=== PATIENT | male | born 1980 | race Caucasian/White ===

== ENCOUNTER 2019-09-07 11:38 | Emergency (ER) | payer OTHER, SELFPAY ==
[2019-09-07 11:48] VITALS: BP 155/83; PULSE 78; RESP 18; TEMP 36.7; O2SAT 98
--- NOTE | 2019-09-07 12:04 | ED.UPPEXIN ---
HPI - Extremity Injury (Upper) General Chief Complaint: Extremity Injury, Upper Stated Complaint: SHOULDER PAIN Time Seen by Provider: 09/07/19 11:57 Source: patient and RN notes reviewed Mode of arrival: ambulatory Limitations: no limitations History of Present Illness HPI narrative: Patient presents today complaining of left shoulder pain. Reports he has had intermittent left shoulder pain over the past 4 months after carrying a heavy sack of feed. Significantly worsened when he woke up this morning with severe pain. Reports intermittent tingling to the left fourth and fifth fingers since yesterday. Patient states that in April, the pain started in his neck and had spread down to his shoulder. Rates his pain 09/01. He has been using ibuprofen, Biofreeze, TENS unit, and going to the chiropractor over the last 6 weeks. All without relief. History of lupus for which she takes Plaquenil. MD complaint: injury to: shoulder Related Data Home Medications Medication Instructions Recorded Confirmed hydroxychloroquine 200 mg PO BID 09/07/19 09/07/19 Allergies Allergy/AdvReac Type Severity Reaction Status Date / Time No Known Allergies Allergy Unverified 09/07/19 11:47 Review of Systems Review of Systems: Narrative: CONSTITUTIONAL: Denies body aches, fever, chills, or sweats. EYES: Denies visual changes, redness, or discharge. ENT: Denies rhinorrhea, congestion, sore throat, or otalgia. CARDIOVASCULAR: Denies chest pain, palpitations, or edema. RESPIRATORY: Denies cough or dyspnea. GASTROINTESTINAL: Denies abdominal pain, nausea, vomiting, or diarrhea. GENITOURINARY: Denies dysuria or hematuria. SKIN: Denies rash, itching, or wounds. MUSCULOSKELETAL: Denies back pain, or myalgia. + Left shoulder pain NEUROLOGIC: Denies headache, numbness, tingling, or weakness. PSYCH: Denies depression or anxiety. [facility] Past Medical History Medical History (Updated 09/07/19 @ 12:11 by Tanisha Zamora, [facility], ) Fracture of thumb, right, closed HTN (hypertension) Lupus Migraine Wrist fracture, left Surgical History Surgical History (Updated 01/19/19 @ 22:44 by Gina Rodriguez) [place] teeth removed Social History Social History (Updated 01/19/19 @ 22:44 by Gina Rodriguez) Smoking packs per day: 1 Smoking cigarettes per day: 20.0 Smoking status: Current every day smoker Tobacco type: cigarettes Alcohol intake: never Comments At time of signature, I have reviewed and agree with nursing past medical, surgical, social and family history unless otherwise noted. Please see nursing chart for further information. There is no relevant family history pertinent to the presenting complaint Exam Narrative: Exam Narrative: GENERAL: Well-appearing, well-nourished, and in no acute distress. HEAD: Normocephalic, atraumatic. EYES: EOMI. No redness or drainage. Conjunctivae normal. ENT: Mucous membranes pink and moist. NECK: Normal AROM. Supple. No lymphadenopathy. Neck is nontender. CHEST: No respiratory distress. MUSCULOSKELETAL: No bony tenderness of the spine. Left trapezius tenderness that extends down the scapular border. Elbow is non tender. No swelling of the arm noted. Full AROM without increased pain. Full sensation intact. Capillary refill normal. Radial pulse normal. Handgrips equal and strong. EXTREMITIES: Normal range of motion. No edema. SKIN: Warm, dry, no rash. Capillary refill normal. Normal skin turgor. NEURO: No focal deficits. Alert and oriented x3. Gait steady. PSYCH: Normal affect. No signs of depression or anxiety. Course Vital Signs Vital signs: Vital Signs Temperature 98.0 F 09/07/19 11:48 Pulse Rate 78 09/07/19 11:48 Respiratory Rate 18 09/07/19 11:48 Blood Pressure 155/83 H 09/07/19 11:48 Pulse Oximetry 98 09/07/19 11:48 Temperature 98.0 F 09/07/19 11:48 Pulse Rate 78 09/07/19 11:48 Respiratory Rate 18 09/07/19 11:48 Blood Pressure 155/83 H 07
== END 2019-09-07 12:24 | disposition home or self-care (01) ==
PROVIDERS: Emergency Provider Nurse Practitioner; PCP Family Medicine
DX: S46.812A Strain of other muscles, fascia and tendons at shoulder and upper arm level, left arm, initial encounter (principal); X50.0XXA Overexertion from strenuous movement or load, initial encounter; I10 Essential (primary) hypertension; F17.210 Nicotine dependence, cigarettes, uncomplicated; M32.9 Systemic lupus erythematosus, unspecified
CPT/HCPCS: 99213; G0463

== ENCOUNTER 2019-09-11 15:02 | Emergency (ER) | payer OTHER, SELFPAY ==
--- NOTE | ~2019-09-11 | XR_ITS ---
EXAMINATION: XR shoulder LT min 2V DATE: 09/11/2019 16:05 INDICATION: Left shoulder pain. TECHNIQUE: 4 views of left shoulder were obtained. COMPARISON: None. FINDINGS: Bone alignment is normal. No fracture. Joint spaces are normal. IMPRESSION: 1. Normal left shoulder. Reviewed, dictated and finalized at location A. IMPRESSION: 1. Normal left shoulder.
--- NOTE | ~2019-09-11 | CT_ITS ---
EXAMINATION: CT cervical spine wo con DATE: 09/11/2019 15:59 INDICATION: Neck pain. Left shoulder pain. TECHNIQUE: Computed tomography (CT) of the cervical spine was performed without intravenous contrast. Automated exposure control and iterative reconstruction technique were employed. The dose-length pro duct was 455.01 mGy-cm. COMPARISON: None FINDINGS: There is kyphosis of cervical spine. Vertebral body heights and intervertebral disc heights are normal. The following disc levels are specifically discussed: C2-C3: There is no uncovertebral joint osteoarthritis. There is mild right facet joint osteoarthritis . There is no neural foraminal stenosis. There is no central canal stenosis. C3-C4: There is no uncovertebral joint osteoarthritis. There is mild right facet joint osteoarthritis . There is no neural foraminal stenosis. There is no central canal stenosis. C4-C5: There is no uncovertebral joint osteoarthritis. There is no facet joint osteoarthritis. There is no neural foraminal stenosis. There is no central canal stenosis. C5-C6: There is mild right uncovertebral joint osteoarthritis. There is no facet joint osteoarthritis . There is no neural foraminal stenosis. There is no central canal stenosis. C6-C7: There is no uncovertebral joint osteoarthritis. There is no facet joint osteoarthritis. There is no neural foraminal stenosis. There is no central canal stenosis. C7-T1: There is no uncovertebral joint osteoarthritis. There is mild bilateral facet joint osteoarthr itis. There is no neural foraminal stenosis. There is no central canal stenosis. IMPRESSION: 1. Mild cervical spondylosis. Reviewed, dictated and finalized at location A.
[2019-09-11 15:09] VITALS: BP 172/106; PULSE 106; RESP 20; TEMP 36.7; O2SAT 98
--- NOTE | 2019-09-11 15:47 | ED.UPPEXIN ---
HPI - Extremity Injury (Upper) General Chief Complaint: Extremity Injury, Upper Stated Complaint: L SHOULDER/NECK PAIN Time Seen by Provider: 09/11/19 15:32 Source: patient Mode of arrival: ambulatory Limitations: no limitations History of Present Illness HPI narrative: This is a 39-year-old male that presents the emergency department for left shoulder pain times 5 days. Reports an injury in April of this year. No new injuries or trauma. Reports for the last 5 days he has had left sided neck pain radiating into the left shoulder. Reports weakness in the arm. Also reports tingling in his fingers. Denies erythema, edema, numbness or decreased range of motion. Related Data Home Medications Medication Instructions Recorded Confirmed hydroxychloroquine 200 mg PO BID 09/07/19 09/07/19 Allergies Allergy/AdvReac Type Severity Reaction Status Date / Time No Known Allergies Allergy Verified 09/11/19 15:34 Review of Systems Review of Systems: Narrative: CONSTITUTIONAL: Denies fever SKIN: Denies rash MUSCULOSKELETAL: Reports joint pain, and myalgia. NEUROLOGIC: Reports weakness. Denies numbness All systems reviewed & are unremarkable except as noted in HPI and below PMFSH Past Medical History Medical History (Updated 09/11/19 @ 16:50 by Germaine Madsen PA-C) Fracture of thumb, right, closed HTN (hypertension) Lupus Migraine Wrist fracture, left Surgical History Surgical History (Updated 01/19/19 @ 22:44 by Gina Rodriguez) [place] teeth removed Social History Social History (Updated 01/19/19 @ 22:44 by Gina Rodriguez) Smoking packs per day: 1 Smoking cigarettes per day: 20.0 Smoking status: Current every day smoker Tobacco type: cigarettes Alcohol intake: never Exam Narrative: Exam Narrative: GENERAL: Well-appearing, well-nourished, and in no acute distress. HEAD: Normocephalic, atraumatic. EYES: EOMI. NECK: Supple. No adenopathy or masses. No midline spinal tenderness CHEST: Clear to auscultation. No respiratory distress. No wheezes rales or rhonchi HEART: Regular rate and rhythm. No murmur heard. Normal peripheral pulses. EXTREMITIES: Normal range of motion. No edema. Strength equal in bilateral upper extremities (5/5) SKIN: Warm, dry, no rash. NEURO: No focal deficits. Alert and oriented x3. PSYCH: Normal mood and affect Course Vital Signs Vital signs: Vital Signs Temperature 98.0 F 09/11/19 15:09 Pulse Rate 106 H 09/11/19 15:09 Respiratory Rate 09/11/19 15:09 Blood Pressure 172/106 H 09/11/19 15:09 Pulse Oximetry 98 09/11/19 15:09 Temperature 98.0 F 09/11/19 15:09 Pulse Rate 106 H 09/11/19 15:09 Respiratory Rate 09/11/19 15:09 Blood Pressure 172/106 H 09/11/19 15:09 Pulse Oximetry 98 09/11/19 15:09 MDM - Extremity Injury (Upper) MDM Narrative Medical decision making narrative: Patient presents emergency department for left shoulder/neck pain x5 days. No known injury or trauma. Patient is neurologically intact. CT of the cervical spine shows mild cervical spondylosis. Left shoulder x-rays without acute findings. Patient was updated on case findings. He was instructed on care of muscle strain. He is to follow-up with primary care doctor. He was given warnings to return to the ER Imaging Data Radiologist's impression: ITS Impressions Cervical Spine CT 09/11/19 16:00 IMPRESSION: 1. Mild cervical spondylosis. Shoulder X-Ray 09/11/19 16:11 IMPRESSION: 1. Normal left shoulder. Critical Care Time Critical Care Time Critical Care Time: No Discharge Plan Discharge Clinical Impression: Acute pain of left shoulder, Neck pain on left side Patient Disposition: Home, Self-Care Condition: Stable Instructions: Neck Pain (ED) Additional Instructions: Return to the ER if you experience fever, weakness, numbness, or any other symptoms that are concerning to you Rest, use ice/heat, take anti-inflamm
[2019-09-11] MEDS: ACETAMINOPHEN 500 MG TABLET 1000 MG PO (16:15)
== END 2019-09-11 17:29 | disposition home or self-care (01) ==
PROVIDERS: Emergency Provider Emergency Medicine; PCP Family Medicine
DX: M25.512 Pain in left shoulder (principal); M54.2 Cervicalgia; I10 Essential (primary) hypertension; F17.210 Nicotine dependence, cigarettes, uncomplicated; M47.812 Spondylosis without myelopathy or radiculopathy, cervical region
CPT/HCPCS: 72125; 73030; 99284; A9270

== ENCOUNTER 2021-02-10 19:02 | Emergency (ER) | payer OTHER, SELFPAY ==
--- NOTE | ~2021-02-10 | XR_ITS ---
XR chest 2V 02/10/2021 19:28 Indication: Chest pain Procedure: 2 view chest Comparison: 10/14/2017 Findings: There are lingular infiltrates. There are calcified granuloma in the right apex. No edema, pleural effusion or pneumothorax. No acute osseous abnormality. Impression: 1: Lingular infiltrates may represent atelectasis or pneumonia. Recommend follow-up chest x-ray and 4 -6 weeks following appropriate therapy. If there is opacification is persistent, further evaluation w ith CT recommended. Reviewed, dictated and finalized at location A. MINER Impression: 1: Lingular infiltrates may represent atelectasis or pneumonia. Recommend follo w-up chest x-ray and 4-6 weeks following appropriate therapy. If there is opaci fication is persistent, further evaluation with CT recommended.
[2021-02-10 19:09] VITALS: BP 209/120; PULSE 84; RESP 18; TEMP 36.7; O2SAT 98
--- NOTE | 2021-02-10 19:15 | ECG_ITS ---
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
[2021-02-10 19:28] LABS: Basophils Absolute Auto 0.1 K/mm3 (0.0-0.1); Basophils Percent Auto 0.8 % (0.2-1.2); Eosinophils Absolute Auto 0.5 K/mm3 (0-0.3); Eosinophils Percent Auto 3.1 % (0-4.4); Hematocrit 56.3 % (42.0-52.0); Hemoglobin 18.9 g/dL (14.0-18.0); Immature Granulocyte Absolute 0.07 K/mm3 (0.00-0.031); Immature Granulocyte Percent A 0.5 % (0-0.5); Lymphocytes Absolute Auto 3.61 K/mm3 (0.9-3.2); Lymphocytes Percent Auto 24.7 % (18.3-44.2); Mean Corpuscular HGB Conc 33.6 g/dl (32-36); Mean Corpuscular Hemoglobin 29.8 pg (26-34); Mean Corpuscular Volume 88.8 fl (80-100); Mean Platelet Volume 9.7 fl (7.4-10.4); Monocytes Absolute Auto 0.9 K/mm3 (0.1-0.6); Monocytes Percent Auto 6.4 % (2.6-8.5); Neutrophils Absolute Auto 9.4 K/mm3 (1.3-6.7); Neutrophils Percent Auto 64.5 % (45.5-73.1); Platelet Count Result 279 k/mm3 (150-375); Red Blood Count 6.34 M/mm3 (4.6-6.20); Red Cell Distribution Width 14.1 % (11.5-14.5); White Blood Count 14.6 K/mm3 (4.5-10.0)
[2021-02-10 19:48] LABS: INR 0.9; Partial Thromboplastin Time 26.3 SECONDS (22.3-36.8); Prothrombin Time 11.9 Seconds (11.1-14.7)
[2021-02-10 19:50] LABS: Troponin I < 0.012 ng/mL (0.000-0.034)
[2021-02-10 19:52] LABS: Alanine Aminotransferase 75 U/L (4-50); Albumin Level 4.8 g/dL (3.5-5.1); Alkaline Phosphatase 114 U/L (38-126); Anion Gap 9 mmol/L (8-16); Aspartate Amino Transferase 46 U/L (17-59); Bilirubin,Total 0.5 mg/dL (0.2-1.3); Blood Urea Nitrogen 11 mg/dL (9-20); Calcium 9.5 mg/dL (8.4-10.2); Carbon Dioxide 26 mmol/L (22-30); Chloride 102 mmol/L (98-107); Estimated CRCL calculation 129 ml/min; Estimated Glomerular Filt Rate > 60; Glucose 92 mg/dL (65-110); Lipase 115 U/L (23-300); Sodium 137 mmol/L (137-145)
[2021-02-10 20:08] VITALS: BP 234/107; PULSE 91; RESP 20; O2SAT 98
[2021-02-10 21:04] VITALS: BP 181/115; PULSE 88; RESP 16; O2SAT 98
[2021-02-10] MEDS: hydroCHLOROthiazide 25 MG TABLET PO (22:00)
[2021-02-10] MEDS: lisinopriL 20 MG TABLET PO (22:00)
--- NOTE | 2021-02-10 22:28 | ED.GENADULT ---
HPI - General Adult General Chief complaint: Chest Pain Stated complaint: chest pain Time Seen by Provider: 02/10/21 21:40 Source: patient and RN notes reviewed History of Present Illness HPI narrative: Patient is a 40 y/o male complaining of left sided chest pain starting about 11:00 AM this morning when he woke up. He describes his pain as aching and rates it as 8/10. There is no pain radiation, no alleviating or exacerbating factor. He states that he has history of hypertension, but has not been taking meds for several months. Related Data Home Medications Medication Instructions Recorded Confirmed hydroxychloroquine 200 mg PO BID 09/07/19 10/20/19 Allergies Allergy/AdvReac Type Severity Reaction Status Date / Time No Known Allergies Allergy Verified 02/10/21 21:05 Review of Systems Constitutional: Constitutional: Denies chills, Denies fever(s), Denies headache(s) and Denies weakness Eyes: Eyes: Denies blurry vision ENT: Denies headache(s) and Denies neck pain Cardiovascular: Cardiovascular: Reports chest pain and Denies dyspnea Respiratory: Respiratory: Denies cough and Denies dyspnea Gastrointestinal: Gastrointestinal: Denies abdominal pain, Denies diarrhea, Denies nausea and Denies vomiting Genitourinary: Genitourinary: Denies hematuria and Denies dysuria Musculoskeletal: Musculoskeletal: Denies back pain and Denies neck pain Neurologic: Denies headache(s) and Denies weakness PMFSH Past Medical History Medical History (Updated 02/10/21 @ 23:36 by Tess Edwards MD) Fracture of thumb, right, closed HTN (hypertension) Lupus Migraine Vision abnormalities Wrist fracture, left Surgical History Surgical History [place] teeth removed Family History Family History (Updated 10/20/19 @ 12:04 by Paola Gagnon RT(R)) Mother Family history of rheumatoid arthritis Other Hypertension Social History Social History (Updated 10/20/19 @ 12:04 by Paola Gagnon RT(R)) Smoking packs per day: 1 Smoking cigarettes per day: 20.0 Smoking status: Current every day smoker Tobacco type: cigarettes Alcohol intake: current Alcohol use details: 1-2 per week Exam Const: General: no acute distress and well developed Orientation/consciousness: oriented to person, oriented to place, oriented to time and patient oriented x3 HENMT: Head: normocephalic Ears: external ears normal General nose exam: Normal external nose present Eyes: General: appearance normal, both eyes and all related structures Conjunctivae: conjunctivae normal Neck: Neck: normal visual inspection and full ROM Chest: Chest palpation & inspection: normal inspection of the chest and no tenderness Resp: Effort & Inspection: normal respiratory effort Auscultation: clear to auscultation bilaterally Cardio: Rate: regular rate Rhythm: regular rhythm GI: GI Palp: No abdominal tenderness and Yes Soft to palpation Skin: General skin exam: normal color and turgor normal Neuro: General: oriented to person, oriented to place, oriented to time and patient oriented x3 Cognition (Neuro): normal cognition Extrem: General: normal to inspection, full ROM and no pedal edema Psych: Appearance: grossly normal Mental Status: mental status grossly normal Affect: normal affect Course Vital Signs Vital signs: Vital Signs Temperature 36.7 C 02/10/21 19:09 Pulse Rate 84 02/10/21 19:09 Respiratory Rate 18 02/10/21 19:09 Blood Pressure 209/120 H 02/10/21 19:09 Pulse Oximetry 98 02/10/21 19:09 Temperature 36.7 C 02/10/21 19:09 Pulse Rate 76 02/11/21 00:24 Respiratory Rate 18 02/11/21 00:24 Blood Pressure 160/93 H 02/11/21 00:24 Pulse Oximetry 97 02/11/21 00:24 Medical Decision Making Vital Signs Vital Signs: Vital Signs Temperature 36.7 C 02/10/21 19:09 Pulse Rate 84 02/10/21 19:09 Respiratory Rate 18 12
[2021-02-10 22:44] LABS: D Dimer 0.27 ug/mL (<0.48)
[2021-02-10 22:47] VITALS: BP 172/98; PULSE 76; RESP 14; O2SAT 98
[2021-02-10 22:54] LABS: Troponin I < 0.012 ng/mL (0.000-0.034)
[2021-02-10 23:24] VITALS: BP 149/97; PULSE 93; RESP 16; O2SAT 96
[2021-02-11 00:24] VITALS: BP 160/93; PULSE 76; RESP 18; O2SAT 97
== END 2021-02-11 00:30 | disposition home or self-care (01) ==
PROVIDERS: Emergency Provider Emergency Medicine
DX: J18.9 Pneumonia, unspecified organism (principal); R07.9 Chest pain, unspecified; I10 Essential (primary) hypertension; F17.210 Nicotine dependence, cigarettes, uncomplicated
CPT/HCPCS: 36415; 71046; 80053; 83690; 84484; 85025; 85380; 85610; 85730; 93005; 99284; A9270

== ENCOUNTER → 2021-10-29 01:34 | Outpatient (CLI) | payer OTHER, SELFPAY ==
[2021-10-30 01:20] LABS: SARS-CoV-2 RNA PCR Positive
== END ==
PROVIDERS: PCP Emergency Medicine; Visit Provider Emergency Medicine
DX: U07.1 COVID-19 (principal)
CPT/HCPCS: C9803; U0003; U0005

== ENCOUNTER 2021-11-12 16:05 | Emergency (ER) | payer OTHER, SELFPAY ==
[2021-11-12] VITALS (8 sets, daily range): BP systolic 121–141; BP diastolic 64–83; PULSE 64–80; RESP 18–20; TEMP 36.9; O2SAT 97–99
--- NOTE | ~2021-11-12 | XR_ITS ---
EXAMINATION: XR chest 2V 11/12/2021 16:48 INDICATION: Chest pain. PROCEDURE: 2 view chest COMPARISON: 02/10/2021 FINDINGS: The lungs are clear. There is calcified granuloma right upper thorax. The cardiomediastinal silhouette is within normal limits. There are no pleural effusions. There is no pneumothorax suspe cted. IMPRESSION: 1: NO ACUTE CARDIOPULMONARY DISEASE. Reviewed, dictated and finalized at location A.
--- NOTE | 2021-11-12 16:13 | ECG_ITS ---
Measurements Intervals Foley Rate: 78 P: 36 FL: 132 QRS: 25 QRSD: 101 T: 43 QT: 377 QTc: 430 Interpretive Statements SINUS RHYTHM DELAYED PRECORDIAL R/S TRANSITION NONSPECIFIC T-WAVE ABNORMALITY- INFERIOR LEADS BASELINE WANDER- II, III, AVF BORDERLINE ECG COMPARED TO ECG 02/10/2021 19:15:02 T-WAVE ABNORMALITY NOW PRESENT Electronically Signed On 11-12-2021 16:47:24 CDT by Avery Cardenas D.O.
[2021-11-12 17:23] LABS: Basophils Absolute Auto 0.1 K/mm3 (0.0-0.1); Basophils Percent Auto 0.6 % (0.2-1.2); Eosinophils Absolute Auto 0.3 K/mm3 (0-0.3); Eosinophils Percent Auto 3.5 % (0-4.4); Hematocrit 48.4 % (42.0-52.0); Hemoglobin 15.6 g/dL (14.0-18.0); Immature Granulocyte Absolute 0.04 K/mm3 (0.00-0.031); Immature Granulocyte Percent A 0.4 % (0-0.5); Lymphocytes Absolute Auto 2.59 K/mm3 (0.9-3.2); Lymphocytes Percent Auto 27.9 % (18.3-44.2); Mean Corpuscular HGB Conc 32.2 g/dl (32-36); Mean Corpuscular Hemoglobin 27.9 pg (26-34); Mean Corpuscular Volume 86.4 fl (80-100); Mean Platelet Volume 9.9 fl (7.4-10.4); Monocytes Absolute Auto 0.7 K/mm3 (0.1-0.6); Monocytes Percent Auto 7.6 % (2.6-8.5); Neutrophils Absolute Auto 5.6 K/mm3 (1.3-6.7); Platelet Count Result 290 k/mm3 (150-375); Red Cell Distribution Width 14.4 % (11.5-14.5); White Blood Count 9.3 K/mm3 (4.5-10.0)
[2021-11-12 17:33] LABS: INR 1.1; Prothrombin Time 13.6 Seconds (11.1-14.7)
[2021-11-12 17:34] LABS: Partial Thromboplastin Time 27.2 SECONDS (22.3-36.8)
[2021-11-12 17:35] LABS: Alanine Aminotransferase 41 U/L (6-50); Albumin Level 4.5 g/dL (3.5-5.1); Alkaline Phosphatase 91 U/L (38-126); Anion Gap 9 mmol/L (8-16); Aspartate Amino Transferase 27 U/L (17-59); Bilirubin,Total 0.5 mg/dL (0.2-1.3); Blood Urea Nitrogen 13 mg/dL (9-20); Calcium 9.3 mg/dL (8.4-10.2); Carbon Dioxide 25 mmol/L (22-30); Chloride 105 mmol/L (98-107); Estimated CRCL calculation 104 ml/min; Estimated Glomerular Filt Rate > 60; Glucose 119 mg/dL (65-110); Lipase 108 U/L (23-300); Potassium 3.9 mmol/L (3.4-5.0); Sodium 139 mmol/L (137-145)
[2021-11-12 17:45] LABS: Troponin I < 0.012 ng/mL (0.000-0.034)
--- NOTE | 2021-11-12 17:51 | ED.CHESTPAIN ---
HPI - Chest Pain General Chief Complaint: Chest Pain Stated Complaint: CHEST PAIN,LIGHTHEADED. COVID+ 10/29/21 Time Seen by Provider: 11/12/21 17:42 Source: patient Mode of arrival: ambulatory Limitations: no limitations History of Present Illness HPI narrative: This is a 41 year old male that presents to the ER for chest pain. Ongoing over the last 5 days. Reports he has recently recovered from COVID. Reports the pain is a pressure. It has been constant all day. It is intermittently sharp. Reports some associated lightheadedness. 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 Reports he has had a negative stress test this year. Denies shortness of breath or lower extremity edema. Related Data Home Medications Medication Instructions Recorded Confirmed carvedilol 12.5 mg tablet 12.5 mg PO BID 04/16/21 10/23/21 Allergies Allergy/AdvReac Type Severity Reaction Status Date / Time No Known Allergies Allergy Verified 10/23/21 14:20 Review of Systems Review of Systems: CONSTITUTIONAL: Denies fever CARDIOVASCULAR: Reports chest pain. Denies edema. RESPIRATORY: Denies cough or dyspnea. All systems reviewed & are unremarkable except as noted in HPI and below PMFSH Past Medical History Medical History (Updated 11/12/21 @ 21:32 by Germaine Madsen PA-C) Fracture of thumb, right, closed HTN (hypertension) Lupus Migraine Vision abnormalities Wrist fracture, left Surgical History Surgical History [place] teeth removed Family History Family History (Updated 10/20/19 @ 12:04 by Paola Gagnon, RT(R)) Mother Family history of rheumatoid arthritis Other Hypertension Social History Social History (Updated 11/12/21 @ 17:55 by Germaine Madsen PA-C) Smoking status: Current every day smoker Tobacco type: cigarettes Alcohol intake: current Alcohol use details: 1-2 per week Substance use: never Exam Narrative: GENERAL: Well-appearing, well-nourished, and in no acute distress. HEAD: Normocephalic, atraumatic. EYES: EOMI. CHEST: Clear to auscultation. No respiratory distress. No wheezes rales or rhonchi HEART: Regular rate and rhythm. No murmur heard. Normal peripheral pulses. ABDOMEN: Soft, nontender, nondistended, normal active bowel sounds. EXTREMITIES: Normal range of motion. No edema. SKIN: Warm, dry, no rash. NEURO: No focal deficits. Alert and oriented x3. PSYCH: Normal mood and affect Course Consultations Consultation #1: Spoke with his cardiology [facility] MANA[facility] on-call about work-up. Patient is to have close follow-up in clinic. Date: 11/12/21 Time: 21:29 Vital Signs Vital signs: Vital Signs Temperature 98.5 F 11/12/21 16:12 Pulse Rate 80 11/12/21 16:12 Respiratory Rate 20 11/12/21 16:12 Blood Pressure 136/72 11/12/21 16:12 Pulse Oximetry 99 11/12/21 16:12 Oxygen Delivery Room Air 11/12/21 16:12 Temperature 98.5 F 11/12/21 16:12 Pulse Rate 66 11/12/21 20:38 Respiratory Rate 18 11/12/21 20:38 Blood Pressure 127/68 11/12/21 20:38 Pulse Oximetry 97 11/12/21 20:38 Oxygen Delivery Room Air 11/12/21 16:12 MDM - Chest Pain MDM Narrative Medical decision making narrative: Patient presents to the emergency department for intermittent chest pains noted over the last 5 days. Patient is afebrile and nontoxic-appearing. His vitals are stable. CBC and metabolic panel without concerning findings. Lipase is normal. No acute ST changes on EKG. Baseline and 3-hour troponin are negative. His D-dimer is negative. Patient does report he has had a negative stress test this year. Patient was updated on case findings. His heart score is a 3. Spoke with his cardiology [facility] MANAGER on-call about work-up. Patient is to have close follow-up in clinic. Patient is stable and felt appropriate for further outpatient evaluation. He was given warnings to return to the ER Lab Data Attestation: I reviewed the kathryn
[2021-11-12] MEDS: PANTOPRAZOLE SODIUM IV 40 MG VIAL IV PUSH (18:02)
[2021-11-12] MEDS: SODIUM CHLORIDE 0.9% IV 500 ML 999 ML IV CONT (18:02)
[2021-11-12 18:29] LABS: D Dimer < 0.27 ug/mL (<0.48)
[2021-11-12] MEDS: KETOROLAC 15 MG/ML VIAL (*BKC) IV PUSH (18:48)
[2021-11-12 19:59] LABS: Troponin I < 0.012 ng/mL (0.000-0.034)
== END 2021-11-12 21:39 | disposition home or self-care (01) ==
PROVIDERS: Emergency Medicine; Physician Assistant; Emergency Provider Emergency Medicine; PCP Emergency Medicine
DX: R07.9 Chest pain, unspecified (principal); F17.210 Nicotine dependence, cigarettes, uncomplicated; I10 Essential (primary) hypertension; Z86.16 Personal history of COVID-19
CPT/HCPCS: 36415; 71046; 80053; 83690; 84484; 85025; 85380; 85610; 85730; 93005; 96361; 96365; 96375; 99284; C9113; J0131; J1885; J7040

== ENCOUNTER 2021-12-31 17:46 | Emergency (ER) | payer OTHER, SELFPAY ==
[2021-12-31 17:58] VITALS: BP 134/87; PULSE 72; RESP 16; TEMP 36.3; O2SAT 99
--- NOTE | 2021-12-31 18:26 | ED.DENTAL ---
HPI - Dental/Oral General Chief complaint: Dental/Oral Stated complaint: discoloration of tongue, sore throat Time Seen by Provider: 12/31/21 18:00 Source: patient Mode of arrival: ambulatory Limitations: no limitations History of Present Illness HPI Narrative: Mr. Green is a 41-year-old male patient presenting to the clinic today with complaints of throat swelling, sore throat, and discoloration of his tongue. He reports that he has seen his 2 primary care doctors JOANN and a pulmonary doctor for this concern. He reports that his throat is swelling at times he feels like it itching and that he has something stuck in the throat. 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 He denies any fever chills but states that at times he has some difficulty swallowing due to the swelling and the discomfort as well as a poking sensation in the bottom of his throat. He states that he no one can figure out what is going on. They have taken off lisinopril and losartan due to swelling in the throat Related Data Home Medications Medication Instructions Recorded Confirmed carvedilol 12.5 mg tablet 12.5 mg PO BID 04/16/21 12/19/21 amlodipine 5 mg tablet 5 mg PO DAILY 12/19/21 12/19/21 aspirin 81 mg capsule 81 mg PO DAILY 12/19/21 12/19/21 clindamycin HCl 300 mg capsule mg 12/31/21 clomiphene citrate 50 mg tablet mg 12/31/21 Allergies Allergy/AdvReac Type Severity Reaction Status Date / Time lisinopril AdvReac Intermediate Verified 12/19/21 13:19 losartan AdvReac Intermediate Verified 12/19/21 13:23 Review of Systems Review of Systems: Pertinent positives per HPI. Patient denies any fever, chills, rash, headache, visual changes, dizziness, cough, runny nose, sore throat, shortness of breath, chest pain, palpitations, nausea, vomiting, diarrhea, constipation, abdominal pain, or any urinary issues. [facility] Past Medical History Medical History (Updated 12/31/21 @ 18:28 by Jose Gannon APRN) Fracture of thumb, right, closed HTN (hypertension) Lupus Migraine Vision abnormalities Wrist fracture, left Surgical History Surgical History [place] teeth removed Family History Family History (Updated 10/20/19 @ 12:04 by Paola Gagnon, RT(R)) Mother Family history of rheumatoid arthritis Other Hypertension Social History Social History (Updated 11/12/21 @ 17:55 by Germaine Madsen PA-C) Smoking status: Current every day smoker Tobacco type: cigarettes Alcohol intake: current Alcohol use details: 1-2 per week Substance use: never Comments At the time of my signature, I reviewed and agree with the nursing past medical, surgical, social, and family history. There is no relevant family history pertinent to the patient complaint. Exam Narrative: General: Well-developed, well nourished, in no apparent distress Head: Normocephalic, atraumatic Eyes: Pupils equally round and reactive to light bilaterally, EOM intact, sclera and conjunctive clear, no discharge, lids normal Ears: TMs intact and clear, ear canals clear, no drainage, grossly hearing normal. Nose: Nares patent, no discharge, no inflammation, no sinus tenderness. Mouth: Oropharynx without masses, good dentition, MMM. White patches to the soft palate as well as in the oropharynx and on the tongue. Throat appears to look red and beefy with swelling Neck: Supple, trachea midline, no enlargement of anterior or posterior cervical nodes, no thyroid masses or goiter palpable. Cardio: Regular rate and rhythm, s1 and s2 normal, no murmur appreciated. Resp: Clear to auscultation bilaterally anteriorly and posteriorly, no rhonchi, rales, wheezing or rubs Course Course Emergency Course: Portions of this record may have been created with voice recognition software. Level of Care: Express Care Visit Vital Signs Vital signs: Vital Signs Temperature 36.3
== END 2021-12-31 18:33 | disposition home or self-care (01) ==
PROVIDERS: Emergency Provider Nurse Practitioner Family; PCP Nurse Practitioner Family
DX: B37.0 Candidal stomatitis (principal); F17.210 Nicotine dependence, cigarettes, uncomplicated; I10 Essential (primary) hypertension; Z79.82 Long term (current) use of aspirin; M32.9 Systemic lupus erythematosus, unspecified
CPT/HCPCS: 99213; G0463

== ENCOUNTER 2022-03-12 11:34 | Emergency (ER) | payer OTHER, SELFPAY ==
--- NOTE | ~2022-03-12 | XR_ITS ---
Supine and upright views of the abdomen Clinical history: Flank pain Findings: Bowel gas pattern is nonspecific. No evidence for obstruction or free air. No abnormal mass lesion or calcification is seen. Osseous structures are intact. Impression: No significant abnormality is seen. Reviewed, dictated and finalized at [facility]. [employer] MA[employer]GER Impression: No significant abnormality is seen.
[2022-03-12 11:43] VITALS: BP 145/91; PULSE 77; RESP 16; TEMP 36.8; O2SAT 99
--- NOTE | 2022-03-12 12:20 | ED.BACK ---
HPI - Back Pain/Injury General Chief Complaint: Back Pain/Injury Stated Complaint: FLANK PAIN Time Seen by Provider: 03/12/22 12:20 Source: patient Mode of arrival: ambulatory Limitations: no limitations History of Present Illness HPI Narrative: 41 y/o male presented for c/o right flank pain for 5 days. Reports pain is 90% right sided and 10% left sided and radiates from the back to front. Denies known injury, states he did lift heavy bags last week but states it is unrelated. Rates pain 5-7/10 and is described as sharp. Denies anything making pain worse, states certain positions make the pain better. Denies urinary complaints of any kind, denies constipation, n/v/d/f/c. Denies hx renal stones. Has used Tens unit, seen chiropractor for an adjustment, and stretches. Also taking Tylenol and motrin. Related Data Home Medications Medication Instructions Recorded Confirmed carvedilol 12.5 mg tablet 12.5 mg PO BID 04/16/21 12/19/21 amlodipine 5 mg tablet 5 mg PO DAILY 12/19/21 12/19/21 aspirin 81 mg capsule 81 mg PO DAILY 12/19/21 12/19/21 clindamycin HCl 300 mg capsule mg 12/31/21 clomiphene citrate 50 mg tablet mg 12/31/21 Allergies Allergy/AdvReac Type Severity Reaction Status Date / Time lisinopril AdvReac Intermediate Swelling Verified 03/12/22 12:34 of Lip/Tongue/Throat losartan AdvReac Intermediate Swelling Verified 03/12/22 12:34 Review of Systems Review of Systems: CONSTITUTIONAL: Denies body aches, fever, chills EYES: Denies visual changes CARDIOVASCULAR: Denies chest pain, palpitations, or edema. RESPIRATORY: Denies cough or dyspnea. GASTROINTESTINAL: Denies abdominal pain, nausea, vomiting, or diarrhea. SKIN: Denies rash, itching, or wounds. MUSCULOSKELETAL: reports back pain NEUROLOGIC: Denies headache, numbness, tingling, or weakness. All systems reviewed & are unremarkable except as noted in HPI and below PMFSH Past Medical History Medical History Fracture of thumb, right, closed HTN (hypertension) Lupus Migraine Vision abnormalities Wrist fracture, left Surgical History Surgical History [place] teeth removed Family History Family History Mother Family history of rheumatoid arthritis Other Hypertension Social History Social History Smoking status: Current every day smoker Tobacco type: cigarettes Alcohol intake: current Alcohol use details: 1-2 per week Substance use: never Comments At time of signature, I have reviewed and agree with nursing past medical, surgical, social and family history unless otherwise noted. Please see nursing chart for further information. There is no relevant family history pertinent to the presenting complaint Exam Narrative: GENERAL: Well-appearing, well-nourished, and in no acute distress. HEAD: Normocephalic, atraumatic. EYES: conjunctivae clear NECK: Supple. full ROM CHEST: Speaks in full sentences. No respiratory distress. HEART: Regular rate and rhythm. Normal and equal peripheral pulses. ABD: Mild ttp LLQ and mild pain reported right flank with deep palpation. BS positive, soft, round. MUSC: No Vertebral point tenderness. BLEs with normal strength and sensation, normal range of motion. No open wounds or obvious deformity; pulse palpable and equal bilaterally, skin warm, dry, pink. Capillary refill less than 3 seconds. Gait steady. SKIN: Warm, dry, no rash. NEURO: Alert and oriented x3. Course Course Emergency Course: Patient is aware of diagnosis, understands and agrees to treatment plan. Anticipatory guidance given. Patient agrees to follow-up as directed and is aware of reasons to seek care at the emergency department. Portions of this record may have been created with voice recognition softwa
== END 2022-03-12 13:16 | disposition home or self-care (01) ==
PROVIDERS: Emergency Provider Nurse Practitioner Family; PCP Nurse Practitioner Family
DX: R10.9 Unspecified abdominal pain (principal); I10 Essential (primary) hypertension; F17.210 Nicotine dependence, cigarettes, uncomplicated; M32.9 Systemic lupus erythematosus, unspecified
CPT/HCPCS: 74018; 81003; 99213; G0463

== ENCOUNTER 2022-03-17 17:38 | Emergency (ER) | payer OTHER, SELFPAY ==
[2022-03-17 17:46] VITALS: BP 160/86; PULSE 93; RESP 16; TEMP 36.6; O2SAT 99
--- NOTE | 2022-03-17 18:03 | ED.EXTPRO ---
HPI - Extremity Problem General Chief complaint: Extremity Problem,Nontraumatic Stated complaint: swelling in legs Time Seen by Provider: 03/17/22 18:03 Source: patient, RN notes reviewed and old records reviewed Mode of arrival: ambulatory Limitations: no limitations History of Present Illness HPI Narrative: 41 year old male who presents to express care with complaints of noting some swelling to his lower extremities since last night. Patient has mild pretibial edema noted which is pitting, he denies any increase use of salt, eating of highly salted foods or processed food consumption.Patient states when he was in [facility] route jumper there said he had Lupus and he took medication, but route jumper in [facility] said he doesn't have it. 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 Patient was seen previously in clinic for flank pain which he states has resolved. MD Complaint: extremity swelling Onset (ago): day(s) (last night) Location: lower extremity (pretibial trace pitting edema) Related Data Home Medications Medication Instructions Recorded Confirmed carvedilol 12.5 mg tablet 12.5 mg PO BID 04/16/21 12/19/21 amlodipine 5 mg tablet 5 mg PO DAILY 12/19/21 12/19/21 aspirin 81 mg capsule 81 mg PO DAILY 12/19/21 12/19/21 clindamycin HCl 300 mg capsule mg 12/31/21 clomiphene citrate 50 mg tablet mg 12/31/21 Allergies Allergy/AdvReac Type Severity Reaction Status Date / Time lisinopril AdvReac Intermediate Swelling Verified 03/17/22 17:49 of Lip/Tongue/Throat losartan AdvReac Intermediate Swelling Verified 03/17/22 17:49 Review of Systems Review of Systems: CONSTITUTIONAL: Denies fever, chills, or sweats. EYES: Denies visual changes, redness, or discharge. ENT: Denies rhinorrhea, congestion, sore throat, or otalgia. CARDIOVASCULAR: Denies chest pain, palpitations, or edema. RESPIRATORY: Denies cough or dyspnea. GASTROINTESTINAL: Denies abdominal pain, nausea, vomiting, or diarrhea. GENITOURINARY: Denies dysuria or hematuria. SKIN: Denies rash or itching. MUSCULOSKELETAL: Denies back pain, joint pain, or myalgia. NEUROLOGIC: Denies headache, numbness, or weakness. PSYCHIATRIC: Denies anxiety or depression. All systems reviewed & are unremarkable except as noted in HPI and below PMFSH Past Medical History Medical History Fracture of thumb, right, closed HTN (hypertension) Lupus Migraine Vision abnormalities Wrist fracture, left Surgical History Surgical History [place] teeth removed Family History Family History Mother Family history of rheumatoid arthritis Other Hypertension Social History Social History Smoking status: Current every day smoker Tobacco type: cigarettes Alcohol intake: current Alcohol use details: 1-2 per week Substance use: never Comments At time of signature, agree with nursing past medical, surgical, social and family history. There is no relevant family history pertinent to the presenting complaint Exam Narrative: GENERAL: Well-appearing, well-nourished, and in no acute distress. HEAD: Normocephalic, atraumatic. EYES: PERRLA and EOMI. ENT: Nares clear, no rhinorrhea or epistaxis. Mucous membranes moist.TM's normal with good light reflex, no throat redness or swelling NECK: Supple.no lymphadenopathy CHEST: Clear to auscultation. No respiratory distress.SAO2 99% on room air HEART: Regular rate and rhythm. No murmur heard. Normal peripheral pulses. ABDOMEN: Soft, nontender, nondistended, normal active bowel sounds. EXTREMITIES: Normal range of motion. trace pitting pre tibial edema lower legs bilaterally SKIN: Warm, dry, no rash. NEURO: No focal deficits. Alert and
== END 2022-03-17 19:14 | disposition home or self-care (01) ==
PROVIDERS: Emergency Provider Registered Nurse; PCP Nurse Practitioner Family
DX: R60.0 Localized edema (principal); F17.210 Nicotine dependence, cigarettes, uncomplicated; I10 Essential (primary) hypertension; M32.9 Systemic lupus erythematosus, unspecified
CPT/HCPCS: 81003; 99213; G0463

== ENCOUNTER 2022-07-12 12:05 | Emergency (ER) | payer OTHER, SELFPAY ==
--- NOTE | 2022-07-12 12:08 | ED.SKABFB ---
HPI - Skin/Abscess/Foreign Bdy General Chief complaint: Skin/Abscess/Foreign Body Stated complaint: BOIL ON ABDOMEN Time Seen by Provider: 07/12/22 12:08 Source: patient and RN notes reviewed History of Present Illness HPI narrative: Patient is a 41-year-old male who presents to urgent care with complaints of abdominal abscess. Patient states that he was seen at his doctor's office on Thursday when it was very small and she started him on Keflex. Patient has been taking the Keflex since Thursday and states the redness has increased in size. Patient denies any fever, nausea or vomiting. Patient does have a history of MRSA. Patient has not been working the area but states that seems to have doubled in size overnight. No other acute complaints. No acute distress noted. Patient aware of the plan of care. Some parts of this dictation were generated by voice recognition software and may contain typographical and/or grammatical inaccuracies. Related Data Home Medications Medication Instructions Recorded Confirmed carvedilol 12.5 mg tablet 12.5 mg PO BID 04/16/21 12/19/21 amlodipine 5 mg tablet 5 mg PO DAILY 12/19/21 12/19/21 aspirin 81 mg capsule 81 mg PO DAILY 12/19/21 12/19/21 clindamycin HCl 300 mg capsule mg 12/31/21 clomiphene citrate 50 mg tablet mg 12/31/21 Allergies Allergy/AdvReac Type Severity Reaction Status Date / Time lisinopril AdvReac Intermediate Swelling Verified 03/17/22 17:49 of Lip/Tongue/Throat losartan AdvReac Intermediate Swelling Verified 03/17/22 17:49 Review of Systems Review of Systems: CONSTITUTIONAL: Denies fever, chills, or sweats. EYES: Denies visual changes, redness, or discharge. ENT: Denies rhinorrhea, congestion, sore throat, or otalgia. CARDIOVASCULAR: Denies chest pain, palpitations, or edema. RESPIRATORY: Denies cough or dyspnea. GASTROINTESTINAL: Denies abdominal pain, nausea, vomiting, or diarrhea. GENITOURINARY: Denies dysuria or hematuria. SKIN: Reports of redness, swelling due to abscess to the abdomen MUSCULOSKELETAL: Denies back pain, joint pain, or myalgia. NEUROLOGIC: Denies headache, numbness, or weakness. All other systems reviewed are negative, except as documented in HPI. PMFSH Past Medical History Medical History Fracture of thumb, right, closed HTN (hypertension) Lupus Migraine Vision abnormalities Wrist fracture, left Surgical History Surgical History [place] teeth removed Family History Family History Mother Family history of rheumatoid arthritis Other Hypertension Social History Social History Smoking status: Current every day smoker Tobacco type: cigarettes Alcohol intake: current Alcohol use details: 1-2 per week Substance use: never Comments At the time of my signature, I reviewed and agree with the nursing past medical, surgical, social, and family history. There is no relevant family history pertinent to the patient complaint. Exam Narrative: GENERAL: This is a well-nourished, well-developed patient, in no apparent distress. HEAD: normocephalic, atraumatic. EYES: PERRL. Sclera clear/white. Vision is grossly intact. EARS: External ears normal NOSE: External nose normal with no obvious nasal discharge, nares without redness, no rhinorrhea. THROAT: Mucous membranes moist NECK: Neck supple SKIN: Firm 6 x 7 cm draining abscess to the lower abdomen, under the umbilicus with surrounding 11 x 10 cm erythema NEURO: awake, alert, and oriented to person, place and time. There were no obvious focal neurologic abnormalities. EXTREMITIES: No clubbing, cyanosis, or edema. Course Course Level of Care: Express Care Visit Vital Signs Vital signs: Vital Signs Temperature 97.5 F L 07/12/22 12:1
[2022-07-12 12:17] VITALS: BP 128/82; PULSE 86; RESP 16; TEMP 36.4; O2SAT 99
== END 2022-07-12 12:45 | disposition home or self-care (01) ==
PROVIDERS: Emergency Provider Nurse Practitioner Family; PCP Nurse Practitioner Family
DX: L02.211 Cutaneous abscess of abdominal wall (principal); F17.210 Nicotine dependence, cigarettes, uncomplicated; I10 Essential (primary) hypertension; Z79.82 Long term (current) use of aspirin
CPT/HCPCS: 99213; G0463

== ENCOUNTER 2023-03-10 13:24 | Outpatient (CLI) | payer BC, SELFPAY ==
[2023-03-10 13:44] LABS: Basophils Absolute Auto 0.1 K/mm3 (0.0-0.1); Basophils Percent Auto 0.8 % (0.2-1.2); Eosinophils Absolute Auto 0.2 K/mm3 (0-0.3); Eosinophils Percent Auto 3.4 % (0-4.4); Hematocrit 49.8 % (42.0-52.0); Hemoglobin 15.4 g/dL (14.0-18.0); Immature Granulocyte Absolute 0.01 K/mm3 (0.00-0.031); Immature Granulocyte Percent A 0.1 % (0-0.5); Lymphocytes Absolute Auto 2.01 K/mm3 (0.9-3.2); Lymphocytes Percent Auto 28.3 % (18.3-44.2); Mean Corpuscular HGB Conc 30.9 g/dl (32-36); Mean Corpuscular Hemoglobin 26.2 pg (26-34); Mean Corpuscular Volume 84.7 fl (80-100); Mean Platelet Volume 9.6 fl (7.4-10.4); Monocytes Absolute Auto 0.8 K/mm3 (0.1-0.6); Monocytes Percent Auto 11.4 % (2.6-8.5); Platelet Count Result 243 k/mm3 (150-375); Red Blood Count 5.88 M/mm3 (4.6-6.20); Red Cell Distribution Width 18.8 % (11.5-14.5); White Blood Count 7.1 K/mm3 (4.5-10.0)
[2023-03-10 16:38] LABS: Anion Gap 6 mmol/L (8-16); Blood Urea Nitrogen 17 mg/dL (9-20); Calcium 8.8 mg/dL (8.4-10.2); Carbon Dioxide 30 mmol/L (22-30); Chloride 106 mmol/L (98-107); Estimated Glomerular Filt Rate > 60; Glucose 90 mg/dL (65-110); Potassium 4.2 mmol/L (3.4-5.0); Sodium 142 mmol/L (137-145)
== END 2023-03-10 13:25 | disposition home or self-care (01) ==
LOC: ANHLAB 13:27
PROVIDERS: PCP Nurse Practitioner Family; Visit Provider Internal Medicine Hematology & Oncology
DX: D75.1 Secondary polycythemia (principal)
CPT/HCPCS: 36415; 80048; 85025

== ENCOUNTER 2023-06-14 17:33 | Emergency (ER) | payer BC, SELFPAY ==
--- NOTE | ~2023-06-14 | XR_ITS ---
EXAMINATION: XR chest 2V DATE: 06/14/2023 18:10 INDICATION: Shortness of breath. TECHNIQUE: Frontal and lateral views of the chest were obtained. COMPARISON: None. FINDINGS: A calcified right lung nodule is consistent with old granulomatous disease. No pleural effu fidel or pneumothorax. The heart size is normal. IMPRESSION: 1. No acute cardiopulmonary disease. Reviewed, dictated and finalized at location E.
--- NOTE | 2023-06-14 17:42 | ED.URI ---
HPI - URI/Sore Throat General Chief Complaint: Shortness of Breath/Dyspnea Stated Complaint: SOB Time Seen by Provider: 06/14/23 17:52 Source: patient, RN notes reviewed and old records reviewed Mode of arrival: ambulatory Limitations: no limitations History of Present Illness HPI Narrative: 42 year old male who presents to express care with complaints of having some shortness of breath while mushrooming on Thursday and has had some night sweats and chills for the past 3 nights. Patient reports that he does not know if he has had a fever but has felt flushed and had chills. Patient has sarcoidosis and is on Methotrexate and also hydroxychloroquine for his disease process, patient reports that he had lung biopsy about a year ago. Patient reports that his pulse oximetry at home was down to 91% and he normally runs around 95-96%. Patient continues to use tobacco daily, no acute cough noted. Respirations are non-labored no tachypnea noted SAO2 96% on room air. MD elicited complaint: other (reports feelings of dyspnea, chills and night sweats) Pertinent past history: immunosuppression and other (Sarcoidosis) Onset (ago): day(s) (3) Pain scale (0-10): 0 Able to tolerate fluids by mouth: Yes Treatments prior to arrival: none Related Data Home Medications Medication Instructions Recorded Confirmed carvedilol 12.5 mg tablet 12.5 mg PO TID 04/16/21 06/14/23 aspirin 81 mg capsule 81 mg PO DAILY 12/19/21 06/14/23 anastrozole 1 mg tablet 1 mg PO 3XW 07/12/22 06/14/23 baclofen 10 mg tablet 10 mg PO TID 07/12/22 06/14/23 fexofenadine 180 mg tablet 180 mg PO DAILY 07/12/22 06/14/23 folic acid 1 mg tablet 1 mg PO DAILY 07/12/22 06/14/23 hydralazine 25 mg tablet 25 mg PO TID 07/12/22 06/14/23 hydroxychloroquine 200 mg tablet 200 mg PO BID 07/12/22 06/14/23 methotrexate sodium 2.5 mg tablet 25 mg PO WEEKLY 07/12/22 06/14/23 omeprazole 40 mg capsule,delayed 40 mg PO DAILY 07/12/22 06/14/23 release prednisone 5 mg tablet 5 mg PO USEASDIRECTD 07/12/22 06/14/23 tramadol 50 mg tablet 50 mg PO TID 07/12/22 06/14/23 Allergies Allergy/AdvReac Type Severity Reaction Status Date / Time lisinopril AdvReac Intermediate Swelling Verified 06/14/23 18:26 of Lip/Tongue/Throat losartan AdvReac Intermediate Swelling Verified 06/14/23 18:26 Review of Systems Review of Systems: CONSTITUTIONAL: Denies malaise, positive for chills, sweats, unknown if fevers has felt flushed EYES: Denies visual changes, redness, or discharge. ENT: Reports rhinorrhea, congestion,no sinus pain,no otalgia and no sore throat. CARDIOVASCULAR: Denies chest pain, palpitations, or edema. RESPIRATORY: Reports no cough.? Reports that he feel like his breathing is labored, SAO2 96% on room air, dyspnea with exertion GASTROINTESTINAL: Denies abdominal pain, nausea, vomiting, diarrhea SKIN: Denies rash or itching. MUSCULOSKELETAL: Denies myalgia. NEUROLOGIC: Denies headache. All systems reviewed & are unremarkable except as noted in HPI and below PMFSH Past Medical History Medical History (Updated 06/15/23 @ 08:02 by Shonda Patterson NP) Fracture of thumb, right, closed HTN (hypertension) Migraine Polycythemia Sarcoidosis Vision abnormalities Wrist fracture, left Surgical History Surgical History [place] teeth removed Family History Family History Mother Family history of rheumatoid arthritis Other Hypertension Social History Social History (Updated 06/15/23 @ 07:56 by Shonda Patterson NP) Smoking status: Current every day smoker Tobacco type: cigarettes Additional smoking assessment comments: down to 1/2 ppd trying to quit Alcohol intake: current Alcohol use details: 1-2 per week Substance use: never Gender identity (if verbalized by the patient): Male Comments At time of signature, agree with nursing past medica
[2023-06-14 17:46] VITALS: BP 131/79; PULSE 97; RESP 16; TEMP 37.6; O2SAT 96
[2023-06-14 18:12] VITALS: PULSE 97; RESP 20; O2SAT 96
== END 2023-06-14 18:45 | disposition home or self-care (01) ==
PROVIDERS: Emergency Provider Registered Nurse; PCP Nurse Practitioner Family
DX: R06.00 Dyspnea, unspecified (principal); D84.9 Immunodeficiency, unspecified; Z20.822 Contact with and (suspected) exposure to COVID-19; F17.210 Nicotine dependence, cigarettes, uncomplicated; I10 Essential (primary) hypertension; D86.9 Sarcoidosis, unspecified; Z79.82 Long term (current) use of aspirin
CPT/HCPCS: 71046; 87426; 87804; 99213; G0463

== ENCOUNTER 2023-06-26 02:13 | Inpatient (IN) | payer BC, SELFPAY ==
[2023-06-26] VITALS (35 sets, daily range): BP systolic 112–139; BP diastolic 49–76; PULSE 75–95; RESP 17–30; TEMP 36.4–38.7; O2SAT 90–99; BMI 40.4
--- NOTE | 2023-06-26 | ECHO_ITS ---
Patient Info Name: Amber Green Age: 42 years : 1980 Gender: Male Ht: 66 in Wt: 250 lbs BSA: 2.35 m2 HR: 95 bpm Heart Rhythm: Sinus Rhythm Technical Quality: Good Exam Date: 06/26/2023 11:12 AM Exam Location: Echo Lab Patient Status: Outpatient Admit Date: 06/26/2023 Staff Ordering Physician: Alexis Santiago MD Assisted Living Director: Luke Schroeder RDCS Attending Provider: Magda Tanner MD Exam Type: CA echo doppler color flow Study Info Indications - pulmonary embolism Complete two-dimensional, color flow and Doppler transthoracic echocardiogram is performed. Summary 1. Complete two-dimensional, color flow and Doppler transthoracic echocardiogram is performed. 2. Unremarkable 2D/Doppler echocardiogram. 3. No echo evidence of right ventricular pressure overload. Left Ventricle Left ventricular chamber dimension is normal. Left ventricular systolic function is normal, estimated at 60-65%. The left ventricular diastolic function is normal. Right Ventricle Right ventricular chamber dimension is normal. Left Atria Left atrial chamber dimension is normal. Right Atria Right atrial chamber dimension is normal. Aortic Valve The aortic valve is normal. Pulmonic Valve The pulmonic valve is normal. Mitral Valve The mitral valve has normal leaflets. Tricuspid Valve The tricuspid valve leaflets are normal. Pericardium/Pleural The pericardium appears normal. Aorta The aortic root size at the sinus of Valsalva is normal. Left Ventricular Outflow Tract Name Value Normal LVOT 2D LVOT Diameter 1.8 cm LVOT Doppler LVOT Peak Gradient 8 mmHg LVOT Mean Gradient 5 mmHg LVOT VTI 22 cm LVOT VTI/AV VTI Ratio 0.7 LVOT Stroke Volume 56 ml LVOT CO 5.0 l/min LVOT CI 2.1 l/min/m2 Pulmonic Valve Name Value Normal RVOT Doppler RVOT Peak Gradient 2 mmHg PV Doppler PV Peak Gradient 6 mmHg Mitral Valve Name Value Normal MV Doppler MV Decel Barnes 488 cm/s2 MV PHT 63 ms MV Area (PHT) 3.5 cm2 4.0-5.0 MV Diastolic Function MV E Peak Velocity 105 cm/s MV A Peak Velocity 59 cm/s MV E/A 1.8 MV Decel Time
--- NOTE | ~2023-06-26 | CT_ITS ---
Clinical Indication: Hemoptysis, abdominal pain CT Scan of the Chest, Abdomen, and Pelvis with Contrast: Technique: Contiguous sections were acquired throughout the chest, abdomen, and pelvis after intraven ous administration of 100 cc of Omnipaque 350. Dose reduction technique was used on this scan by uti lizing automated exposure control and iterative reconstruction technique. The dose-length product (DL P) was 2232.93 mGy-cm. Findings: There is no evidence of any significant mediastinal, hilar or axillary lymphadenopathy. There are mul tiple bilateral pulmonary emboli, involving the right lower lobar pulmonary artery and multiple right lower lobe segmental branches, as well as segmental branches in the right upper lobe, left upper lob e, and left lower lobe. No aortic aneurysm or dissection. No pericardial effusion. No definite eviden ce for right heart strain. Small left pleural effusion present. No right pleural effusion. There is an large area of consolidation with some groundglass attenuation in the peripheral left lowe r lobe, most compatible with associated pulmonary infarct. There is minimal left basilar atelectatic change otherwise. Calcified right upper lobe granuloma noted. The liver, spleen, pancreas, gallbladder, adrenals and kidneys are within normal limits. No evidence of aortic aneurysm. No lymphadenopathy. No bowel obstruction or bowel wall thickening. There is no evidence to suggest acute appendicitis. Urinary bladder is unremarkable. No pelvic mass seen. No ascites. Impression: Multiple, fairly extensive pulmonary emboli bilaterally, as detailed above. No evidence for right hea rt strain. Associated prominent pulmonary infarct in the left lower lobe. Small left pleural effusion. No significant findings in the abdomen or pelvis. Case discussed with Dr. Gruber at the time of this reading. Reviewed, dictated and finalized at location M. Impression: Multiple, fairly extensive pulmonary emboli bilaterally, as detailed above. No evidence for right heart strain. Associated prominent pulmonary infarct in the left lower lobe. Small left pleural effusion. No significant findings in the abdomen or pelvis. Case discussed with Dr. Gruber at the time of this reading.
--- NOTE | ~2023-06-26 | XR_ITS ---
EXAMINATION: XR chest 1V portable DATE: 06/30/2023 11:07 INDICATION: Fever. TECHNIQUE: A single frontal view of the chest was obtained on 2 radiographs. COMPARISON: Chest 2 views 06/14/2023, chest CT 06/28/2023 FINDINGS: There is a moderate-sized left pleural effusion. There are airspace opacities at left lung base. No pneumothorax. A calcified right lung nodule is consistent with old granulomatous disease. Th e heart size is normal. IMPRESSION: 1. Moderate-sized left pleural effusion. 2. Airspace opacities at left lung base, likely a combination of infarct and atelectasis. Reviewed, dictated and finalized at location A. IMPRESSION: 1. Moderate-sized left pleural effusion. 2. Airspace opacities at left lung base, likely a combination of infarct and at electasis.
--- NOTE | ~2023-06-26 | XR_ITS ---
EXAMINATION: XR chest 1V portable DATE: 07/03/2023 09:34 INDICATION: Chest pain. TECHNIQUE: A single frontal view of the chest was obtained. COMPARISON: Chest 2 views 07/02/2023 FINDINGS: There are airspace opacities at left lung base. There is a moderate-sized left pleural effu fidel. A calcified right lung nodule is consistent with old granulomatous disease. No pneumothorax. Th e heart size is normal. IMPRESSION: 1. Stable moderate-sized left pleural effusion. 2. Several airspace opacities at left lung base, likely a combination of atelectasis and infarct. Reviewed, dictated and finalized at location A. IMPRESSION: 1. Stable moderate-sized left pleural effusion. 2. Several airspace opacities at left lung base, likely a combination of atelec tasis and infarct.
--- NOTE | ~2023-06-26 | US_ITS ---
EXAMINATION: US thoracentesis DATE: 07/02/2023 14:12 INDICATION: pleural effusion TECHNIQUE: The procedure and its risks, benefits, and alternatives were discussed with the patient. P otential risks discussed included bleeding, infection, and pneumothorax. The patient understood the r isks and agreed to proceed. The skin was prepped and draped in sterile fashion. 1% lidocaine was used for local anesthesia. Under ultrasound guidance, a 5 Fr catheter with trochar was advanced into the left pleural effusion. Fluid was aspirated. The catheter was removed, and a dressing was applied. The re were no immediate complications. FINDINGS: Ultrasound images demonstrate a left pleural effusion and the catheter within the fluid. IMPRESSION: 1. Successful ultrasound-guided thoracentesis yielding 1000 mL of george-colored fluid. Reviewed, dictated and finalized at location A. IMPRESSION: 1. Successful ultrasound-guided thoracentesis yielding 1000 mL of george-colore d fluid.
--- NOTE | ~2023-06-26 | CT_ITS ---
EXAMINATION: CTA chest abdomen pelvis DATE: 06/28/2023 01:15 INDICATION: Hypotension. Acute pulmonary emboli. TECHNIQUE: Computed tomographic angiography (CTA) of the chest, abdomen, and pelvis was performed wit h 100 mL Omnipaque-350 intravenous contrast. Automated exposure control and iterative reconstruction technique were employed. The dose-length product was 1371.82 mGy-cm. Maximum intensity projection 3D- reconstructions of the aorta and other arteries were constructed by the technologist on a separate wo rkstation. COMPARISON: CT chest, abdomen, and pelvis 06/26/2023 FINDINGS: CHEST CTA: A calcified right lung nodule and calcified right hilar and mediastinal lymph nodes are consistent wi th old granulomatous disease. There are airspace and groundglass opacities in left lower lobe, consis tent with infarct. There is mild atelectasis bilaterally. There is a moderate-sized left pleural effu fidel. The heart size is normal. No pericardial effusion. Again seen are acute pulmonary emboli in the lower lobes. Thoracic aorta is normal. There is mild thoracic spondylosis. ABDOMEN AND PELVIS CTA: The liver, gallbladder, spleen, pancreas, adrenal glands, and right kidney are normal. There is a 2.3 cm cyst in left kidney. There is an umbilical hernia containing fat with associated fat stranding. T he appendix is normal. There are no dilated loops of bowel. There are no pathologically enlarged lymp h nodes. There is no free intraperitoneal fluid. Abdominal aorta is normal. There is no significant s tenosis of celiac axis, superior mesenteric artery, the renal arteries, or inferior mesenteric artery . There is mild lumbar spondylosis. IMPRESSION: 1. Acute pulmonary emboli again seen in the lower lobes. 2. Worsened airspace and groundglass opacities in left lower lobe, consistent with infarct and atelec tasis. 3. Worsened moderate-sized left pleural effusion. 4. Umbilical hernia containing fat. Associated fat stranding may be inflammation or scarring. Reviewed, dictated and finalized at location A. IMPRESSION: 1. Acute pulmonary emboli again seen in the lower lobes. 2. Worsened airspace and groundglass opacities in left lower lobe, consistent w ith infarct and atelectasis. 3. Worsened moderate-sized left pleural effusion. 4. Umbilical hernia containing fat. Associated fat stranding may be inflammatio n or scarring.
--- NOTE | ~2023-06-26 | XR_ITS ---
EXAMINATION: [id number] DATE: 07/02/2023 14:04 INDICATION: Left pleural effusion status post thoracentesis. TECHNIQUE: Frontal and lateral views of the chest were obtained. COMPARISON: Chest single view at 5:39 AM FINDINGS: There is a moderate-sized left pleural effusion. There are airspace opacities at left lung base. A calcified right lung nodule and calcified right hilar and mediastinal lymph nodes are consist ent with old granulomatous disease. No pneumothorax. The heart size is normal. IMPRESSION: 1. Moderate-sized left pleural effusion with improvement status post thoracentesis. 2. Airspace opacities at left lung base, likely a combination of atelectasis and infarct. Reviewed, dictated and finalized at location A. IMPRESSION: 1. Moderate-sized left pleural effusion with improvement status post thoracente sis. 2. Airspace opacities at left lung base, likely a combination of atelectasis an d infarct.
--- NOTE | ~2023-06-26 | US_ITS ---
EXAMINATION:US venous doppler LE BI INDICATION:Lower extremity pain TECHNIQUE: Multiple grayscale, color flow and Doppler images of the right and left lower extremity de ep venous systems were obtained and reviewed. COMPARISON:No prior studies for comparison. FINDINGS: The common femoral, superficial femoral and popliteal veins demonstrate normal respiratory variation, augmentation and compressibility. Color flow is also seen within the posterior tibial, pe roneal, greater saphenous and profunda veins. IMPRESSION: 1: No lower extremity deep venous thrombosis. Reviewed, dictated and finalized at location B.
--- NOTE | ~2023-06-26 | XR_ITS ---
Portable chest x-ray Comparison: 06/30/2023 Clinical History: Left effusion Findings: Moderate left pleural effusion present with probable left lower lobe atelectasis. Right waldemar ng clear. Cardiomediastinal silhouette is stable. Bones and soft tissues are unremarkable. Impression: Moderate left pleural effusion with probable left lower lobe atelectasis. Reviewed, dictated and finalized at [facility]. Impression: Moderate left pleural effusion with probable left lower lobe atelectasis.
--- NOTE | 2023-06-26 02:27 | ECG_ITS ---
SEE SCANNED COPY FOR CONFIRMED REPORT MTDD
[2023-06-26] MEDS: MORPHINE SULFATE (*CRX) 4 MG/ML INJ IV PUSH ×2 (02:35→17:11)
[2023-06-26] MEDS: ONDANSETRON INJ 4 MG/2 ML VIAL IV PUSH (02:35)
[2023-06-26] MEDS: SODIUM CHLORIDE 0.9% IV 1,000 ML 999 ML IV CONT (02:35)
--- NOTE | 2023-06-26 02:38 | ED.GENADULT ---
HPI - General Adult General Chief complaint: Abdominal Pain Stated complaint: left sided abd pain with hemoptysis Time Seen by Provider: 06/26/23 02:20 History of Present Illness HPI narrative: patient 42-year-old gentleman who presents emergency department with chief complaint of left-sided abdominal pain. The patient reports that he was recently treated for bronchitis due history with and provider a bloating feeling his abdomen and hurts to take a deep breath. Patient reports the pain in the left lower quadrant and reports that the pain is not improved by anything patient also reports this evening he had an episode of coughing that was followed by an episode of bloody sputum. Related Data Home Medications Medication Instructions Recorded Confirmed aspirin 81 mg capsule 81 mg PO DAILY 12/19/21 06/23/23 anastrozole 1 mg tablet 1 mg PO 3XW 07/12/22 06/23/23 fexofenadine 180 mg tablet 180 mg PO DAILY 07/12/22 06/23/23 folic acid 1 mg tablet 1 mg PO DAILY 07/12/22 06/23/23 hydroxychloroquine 200 mg tablet 200 mg PO BID 07/12/22 06/23/23 methotrexate sodium 2.5 mg tablet 25 mg PO WEEKLY 07/12/22 06/23/23 omeprazole 40 mg capsule,delayed 40 mg PO DAILY 07/12/22 06/23/23 release amoxicillin 875 mg tablet 875 mg PO Q12H 06/18/23 06/23/23 ascorbic acid (vitamin C) 1,000 mg 1 g PO DAILY 06/18/23 06/23/23 tablet baclofen 10 mg tablet 10 mg PO BID 06/18/23 06/23/23 carvedilol 12.5 mg tablet 25 mg PO BID 06/18/23 06/23/23 cholecalciferol (vitamin D3) 50 50 mcg PO DAILY 06/18/23 06/23/23 mcg (2,000 unit) capsule clomiphene citrate 50 mg tablet 25 mg PO DAILY 06/18/23 06/23/23 (Clomid) hydrochlorothiazide 12.5 mg tablet 12.5 mg PO BID 06/18/23 06/23/23 prednisone 5 mg tablet 20 mg PO USEASDIRECTD PRN 06/18/23 06/23/23 .sarcoidosis tadalafil 20 mg tablet 20 mg PO DAILY PRN Sexual Activity 06/18/23 06/23/23 Allergies Allergy/AdvReac Type Severity Reaction Status Date / Time lisinopril AdvReac Intermediate Swelling Verified 06/26/23 02:14 of Lip/Tongue/Throat losartan AdvReac Intermediate Swelling Verified 06/26/23 02:14 Review of Systems Review of Systems: A 10 system review of systems was completed on the patient and is negative except for what is stated in the HPI. Nursing and ancillary documentation was reviewed. [facility] Past Medical History Medical History Fracture of thumb, right, closed Generalized anxiety disorder HTN (hypertension) Migraine MTHFR gene mutation Polycythemia Sarcoidosis Vision abnormalities Wrist fracture, left Surgical History Surgical History H/O esophagogastroduodenoscopy History of lung biopsy [place] teeth removed Family History Family History Mother Family history of rheumatoid arthritis Diabetes mellitus Hypertension Father Malignant neoplasm of prostate Hypertension Heart disease Grandparent Cerebrovascular accident Cancer Social History Social History Social History: Patient is somewhat confident in filling out paperwork Smoking packs per day: 0.5 Smoking cigarettes per day: 10.0 Smoking status: Current every day smoker Tobacco type: cigarettes Additional smoking assessment comments: down to 1/2 ppd trying to quit Alcohol intake: current Alcohol use details: 1-2 per week Substance use: never Do You Feel Safe in your Home?: Yes Lack of Transportation: No Lack of Food: Never True Current Housing: I Have Housing Concerned About Future Housing: No Difficulty Paying Gas/Electric Bills: No Difficulty Paying for Meds: No Currently Unemployed: No Education: High School Diploma/GED Difficulty w/ Childcare or Family Care: No Living arrangements: with family Occupation/Educ
[2023-06-26 02:47] LABS: Basophils Absolute Auto 0.1 K/mm3 (0.0-0.1); Basophils Percent Auto 0.4 % (0.2-1.2); Eosinophils Absolute Auto 0.2 K/mm3 (0-0.3); Eosinophils Percent Auto 1.2 % (0-4.4); Hematocrit 43.8 % (42.0-52.0); Hemoglobin 13.3 g/dL (14.0-18.0); Immature Granulocyte Absolute 0.07 K/mm3 (0.00-0.031); Immature Granulocyte Percent A 0.5 % (0-0.5); Lymphocytes Absolute Auto 2.33 K/mm3 (0.9-3.2); Mean Corpuscular HGB Conc 30.4 g/dl (32-36); Mean Corpuscular Hemoglobin 25.2 pg (26-34); Mean Corpuscular Volume 83.1 fl (80-100); Monocytes Absolute Auto 1.7 K/mm3 (0.1-0.6); Monocytes Percent Auto 11.7 % (2.6-8.5); Neutrophils Absolute Auto 10.2 K/mm3 (1.3-6.7); Neutrophils Percent Auto 70.2 % (45.5-73.1); Nucleated Red Blood Cells Perc 0.1 % (0.0-0.2); Platelet Count Result 253 k/mm3 (150-375); Red Blood Count 5.27 M/mm3 (4.6-6.20); White Blood Count 14.6 K/mm3 (4.5-10.0)
[2023-06-26 02:56] LABS: Alanine Aminotransferase 28 U/L (6-50); Alkaline Phosphatase 79 U/L (38-126); Anion Gap 8 mmol/L (4-12); Aspartate Amino Transferase 28 U/L (17-59); Bilirubin,Total 0.6 mg/dL (0.2-1.3); Blood Urea Nitrogen 18 mg/dL (9-20); Calcium 8.9 mg/dL (8.4-10.2); Carbon Dioxide 29 mmol/L (22-30); Chloride 103 mmol/L (98-107); Estimated CRCL calculation 92 ml/min; Estimated Glomerular Filt Rate > 60; Glucose 123 mg/dL (65-110); Lipase 160 U/L (23-300); Potassium 3.7 mmol/L (3.4-5.0); Sodium 140 mmol/L (137-145)
[2023-06-26 02:57] LABS: Lactic Acid Reflex 0.8 mmol/L (0.7-2.0)
[2023-06-26 03:00] LABS: INR 1.1
[2023-06-26 03:01] LABS: Partial Thromboplastin Time 29.3 Seconds (22.3-36.8)
[2023-06-26 03:08] LABS: Troponin I < 0.012 ng/mL (0.000-0.034)
[2023-06-26 03:27] LABS: Procalcitonin 0.1 ng/mL
[2023-06-26] MEDS: PANTOPRAZOLE SODIUM IV 40 MG VIAL IV PUSH (03:56)
[2023-06-26 04:00] LABS: Appearance Urine Clear (Clear); Bilirubin Urine Negative (Negative); Blood Urine Negative (Negative); Color Urine Yellow (Yellow); Glucose Urine UA Negative (Negative); Ketones Urine Negative (Negative); Leukocyte Esterase Ur Negative LEU/UL (Negative); Nitrate Urine Negative (Negative); Protein Urine Negative (Negative); Specific Grav Ur 1.064 (1.001-1.035); Urobilinogen Urine 0.2 mg/dL (<2.0); pH Urine 7.5 (5.0-9.0)
[2023-06-26 04:01] LABS: Add Urine Microscopic? NO
--- NOTE | 2023-06-26 05:55 | ECG_ITS ---
SEE SCANNED COPY FOR CONFIRMED REPORT MTDD
[2023-06-26] MEDS: HEPARIN SODIUM 5,000 UNITS/ML VIAL 7000 UNITS IV PUSH ×2 (06:02→13:39)
[2023-06-26] MEDS: HEPARIN SOD/D5W 100 UNITS/ML 25,000 UNITS/250 ML BAG 15 UNITS IV CONT (06:05)
[2023-06-26 06:35] LABS: Troponin I < 0.012 ng/mL (0.000-0.034)
--- NOTE | 2023-06-26 06:53 | ADMGEN ---
0653 This patient, Amber Green, was admitted to IMU Room 212-01. Patient/family oriented to hospital policies and general routines including ID bracelet, bed and alarms, visiting hours, pain management, procedures, bathroom and other care routines, personal items, smoking policy, room service/diet, and visiting hours. Information on how to activate the Rapid Response Team has been discussed. Patient/Family are encouraged to report perceived risks to care and to ask questions if they do not understand what they are told or what they should do.
--- NOTE | 2023-06-26 09:18 | PM.IMHP ---
H&P: HPI History of Present Illness Date/Time: 06/26/23 09:18 Chief Complaint: Abdominal pain Chest pain Narrative: patient 42-year-old gentleman who presents emergency department with chief complaint of left-sided abdominal pain.? The patient reports that he was recently treated for bronchitis due history with and provider a bloating feeling his abdomen and hurts to take a deep breath.? Patient reports the pain in the left lower quadrant and reports that the pain is not improved by anything patient also reports this evening he had an episode of coughing that was followed by an episode of bloody sputum. Review of Systems Review of Systems: - CONSTITUTIONAL: Denies weight loss, fever and chills. - HEENT: Denies changes in vision and hearing - RESPIRATORY: Reports SOB and cough. - CV: Denies palpitations and reports CP. - GI: Reports abdominal pain, denies nausea, vomiting and diarrhea. - : Denies dysuria and urinary frequency. - MSK: Denies myalgia and joint pain. - SKIN: Denies rash and pruritus. - NEUROLOGICAL: Denies headache and syncope. - PSYCHIATRIC: Denies recent changes in mood. Denies anxiety and depression. [facility] Past Medical History Medical History Fracture of thumb, right, closed Generalized anxiety disorder HTN (hypertension) Migraine MTHFR gene mutation Polycythemia Sarcoidosis Vision abnormalities Wrist fracture, left Surgical History Surgical History H/O esophagogastroduodenoscopy History of lung biopsy [place] teeth removed Family History Family History Mother Family history of rheumatoid arthritis Diabetes mellitus Hypertension Father Malignant neoplasm of prostate Hypertension Heart disease Grandparent Cerebrovascular accident Cancer Social History Social History Social History: Patient is somewhat confident in filling out paperwork Smoking packs per day: 0.5 Smoking cigarettes per day: 10.0 Smoking status: Current every day smoker Tobacco type: cigarettes Additional smoking assessment comments: down to 1/2 ppd trying to quit Alcohol intake: current Alcohol use details: 1-2 per week Substance use: never Do You Feel Safe in your Home?: Yes Lack of Transportation: No Lack of Food: Never True Current Housing: I Have Housing Concerned About Future Housing: No Difficulty Paying Gas/Electric Bills: No Difficulty Paying for Meds: No Currently Unemployed: No Education: High School Diploma/GED Difficulty w/ Childcare or Family Care: No Living arrangements: with family Occupation/Education: occupation 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 [employer] Gender identity (if verbalized by the patient): Male Spiritual care concerns: No Agree to blood products: Yes Meds Home Medications and Allergies Home Medications Medication Instructions Recorded Confirmed Type aspirin 81 mg capsule 81 mg PO DAILY 12/19/21 06/26/23 History anastrozole 1 mg tablet 1 mg PO 3XW 07/12/22 06/26/23 History fexofenadine 180 mg tablet 180 mg PO DAILY 07/12/22 06/26/23 History folic acid 1 mg tablet 1 mg PO DAILY 07/12/22 06/26/23 History hydroxychloroquine 200 mg tablet 200 mg PO BID 07/12/22 06/26/23 History methotrexate sodium 2.5 mg tablet 25 mg PO WEEKLY 07/12/22 06/26/23 History omeprazole 40 mg capsule,delayed 20 mg PO BID 07/12/22 06/26/23 History release amoxicillin 875 mg tablet 875 mg PO Q12H 06/18/23 06/26/23 History ascorbic acid (vitamin C) 1,000 mg 1 g PO DAILY 06/18/23 06/26/23 History tablet baclofen 10 mg tablet 10 mg PO BID 06/18/23 06/26/23 History carvedilol 12.5 mg tablet 25 mg PO BID 06/18/23 06/26/23 History cholecalciferol (vitamin D3) 50 5
[2023-06-26 12:25] LABS: Basophils Absolute Auto 0.1 K/mm3 (0.0-0.1); Basophils Percent Auto 0.4 % (0.2-1.2); Eosinophils Absolute Auto 0.1 K/mm3 (0-0.3); Eosinophils Percent Auto 0.8 % (0-4.4); Hematocrit 42.3 % (42.0-52.0); Hemoglobin 12.7 g/dL (14.0-18.0); Immature Granulocyte Absolute 0.08 K/mm3 (0.00-0.031); Immature Granulocyte Percent A 0.6 % (0-0.5); Lymphocytes Absolute Auto 2.35 K/mm3 (0.9-3.2); Lymphocytes Percent Auto 16.7 % (18.3-44.2); Mean Corpuscular Hemoglobin 25.1 pg (26-34); Mean Corpuscular Volume 83.6 fl (80-100); Mean Platelet Volume 9.8 fl (7.4-10.4); Monocytes Absolute Auto 1.4 K/mm3 (0.1-0.6); Monocytes Percent Auto 10.2 % (2.6-8.5); Neutrophils Absolute Auto 10.1 K/mm3 (1.3-6.7); Neutrophils Percent Auto 71.3 % (45.5-73.1); Nucleated Red Blood Cells Perc 0.1 % (0.0-0.2); Platelet Count Result 212 k/mm3 (150-375); Red Blood Count 5.06 M/mm3 (4.6-6.20); Red Cell Distribution Width 18.7 % (11.5-14.5); White Blood Count 14.1 K/mm3 (4.5-10.0)
[2023-06-26 12:37] LABS: INR 1.1; Partial Thromboplastin Time 35.8 Seconds (22.3-36.8); Prothrombin Time 15.3 Seconds (11.1-14.7)
[2023-06-26 12:46] LABS: Troponin I < 0.012 ng/mL (0.000-0.034)
[2023-06-26] MEDS: HEPARIN SOD/D5W 100 UNITS/ML 25,000 UNITS/250 ML BAG 18 UNITS IV CONT ×2 (13:39→22:50)
[2023-06-26] MEDS: hydroCHLOROthiazide 12.5 MG CAPSULE PO (13:43)
[2023-06-26] MEDS: ASCORBIC ACID 500 MG TABLET 1000 MG PO (13:43)
[2023-06-26] MEDS: FOLIC ACID 1 MG TABLET PO (13:43)
[2023-06-26] MEDS: LORATADINE 10 MG TABLET PO (13:44)
[2023-06-26] MEDS: HYDROXYCHLOROQUINE SULFATE 200 MG TABLET PO ×2 (13:44→17:11)
[2023-06-26] MEDS: PANTOPRAZOLE 40 MG TABLET PO ×2 (13:44→17:11)
[2023-06-26] MEDS: CHOLECALCIFEROL 1,000 UNITS TABLET 2000 UNITS PO (13:45)
[2023-06-26] MEDS: carvediloL 25 MG TABLET PO ×2 (13:45→21:05)
[2023-06-26] MEDS: BACLOFEN 10 MG TABLET PO ×2 (13:46→17:11)
[2023-06-26] MEDS: NYSTATIN 100,000 UNITS/ML SUSP 5 ML ORAL.SUSP PO ×3 (13:46→21:05)
[2023-06-26] MEDS: ASPIRIN 81 MG CHEWABLE TABLET PO (13:51)
--- NOTE | 2023-06-26 14:12 | PC.NURSE ---
Dr. Perdue given report that on the pts temperature. T.O.R.B. Acetaminophen 650mg PO Q6 hours PRN fever mild pain.
[2023-06-26] MEDS: ACETAMINOPHEN 325 MG TABLET 650 MG PO (16:12)
[2023-06-26 19:17] LABS: Partial Thromboplastin Time 94.1 Seconds (22.3-36.8)
[2023-06-27] VITALS (22 sets, daily range): BP systolic 94–142; BP diastolic 43–67; PULSE 78–94; RESP 17–24; TEMP 36.1–37.9; O2SAT 93–98
[2023-06-27] MEDS: MORPHINE SULFATE (*CRX) 4 MG/ML INJ IV PUSH (00:41)
[2023-06-27 01:00] LABS: Partial Thromboplastin Time 70.3 Seconds (22.3-36.8)
[2023-06-27] MEDS: HEPARIN SODIUM 5,000 UNITS/ML VIAL 3500 UNITS IV PUSH (01:30)
[2023-06-27 07:40] LABS: Basophils Percent Auto 0.3 % (0.2-1.2); Eosinophils Absolute Auto 0.2 K/mm3 (0-0.3); Eosinophils Percent Auto 1.6 % (0-4.4); Hematocrit 39.1 % (42.0-52.0); Hemoglobin 11.9 g/dL (14.0-18.0); Immature Granulocyte Absolute 0.06 K/mm3 (0.00-0.031); Immature Granulocyte Percent A 0.5 % (0-0.5); Lymphocytes Absolute Auto 1.85 K/mm3 (0.9-3.2); Lymphocytes Percent Auto 14.5 % (18.3-44.2); Mean Corpuscular HGB Conc 30.4 g/dl (32-36); Mean Corpuscular Hemoglobin 25.6 pg (26-34); Mean Corpuscular Volume 84.3 fl (80-100); Monocytes Absolute Auto 1.5 K/mm3 (0.1-0.6); Monocytes Percent Auto 11.5 % (2.6-8.5); Neutrophils Absolute Auto 9.1 K/mm3 (1.3-6.7); Neutrophils Percent Auto 71.6 % (45.5-73.1); Platelet Count Result 206 k/mm3 (150-375); Red Blood Count 4.64 M/mm3 (4.6-6.20); Red Cell Distribution Width 18.4 % (11.5-14.5); White Blood Count 12.8 K/mm3 (4.5-10.0)
[2023-06-27 07:51] LABS: Partial Thromboplastin Time 89.1 Seconds (22.3-36.8)
--- NOTE | 2023-06-27 08:24 | PM.IMPN ---
Progress Note: A&P Assessment and Plan (1) Acute pulmonary embolism: Qualifiers: Acute cor pulmonale presence: without acute cor pulmonale Pulmonary embolism type: unspecified Qualified Code(s): I26.99 - Other pulmonary embolism without acute cor pulmonale Code(s): I26.99 - Other pulmonary embolism without acute cor pulmonale Status: Acute (2) Pulmonary embolism with infarction: Code(s): I26.99 - Other pulmonary embolism without acute cor pulmonale Status: Acute (3) Essential hypertension: Code(s): I10 - Essential (primary) hypertension Status: Acute Plan 42-year-old gentleman presented with left-sided chest pain. Started having bloating sensation and hurts with deep breaths. Pain in the left lower quadrant not improved by anything. Associated episode of coughing with episode of bloody sputum. ED evaluation vitals were stable laboratory studies show WBC count of 14.6 electrolytes within normal limit lactic was normal. Troponin negative. Procalcitonin 0.1. Urinalysis with no evidence of UTI. CTA chest abdomen pelvis was performed which showed Multiple fairly extensive pulmonary emboli bilaterally no evidence of right heart strain. Associated prominent pulmonary infarct in the left lower lobe. Small left pleural effusions. No significant finding in the abdominal or pelvis. Patient started on heparin drip. Thrombophilia workup. Venous duplex negative for DVT. Echocardiogram unremarkable with no evidence of right ventricular pressure overload. Will switch him to Eliquis Fever spike 06/26/2023: Blood cultures obtained. Could be from pulmonary infarction. Continue to monitor off antibiotics Hypertension Generalized anxiety disorder Sarcoidosis on methotrexate and hydroxychloroquine History of polycythemia gets phlebotomy regularly. History of MTHFR gene mutation Migraine DAMIÁN does not wear CPAP DVT prophylaxis heparin drip Subjective Date/time seen: 06/27/23 08:24 Interval history: Spiked fever yesterday responded to Tylenol. Remains on heparin drip. No new complaints Review of Systems Review of Systems: All systems reviewed & are unremarkable except as noted in HPI and below Exam Narrative: GENERAL: Well-appearing, well-nourished, and in no acute distress. HEAD: Normocephalic, atraumatic. EYES: PERRLA and EOMI. ENT: Nares clear, no rhinorrhea or epistaxis.? Mucous membranes moist. NECK: Supple. CHEST: Clear to auscultation.? No respiratory distress. HEART: Regular rate and rhythm.? No murmur heard.? Normal peripheral pulses. ABDOMEN: Soft,? Tenderness palpation left lower quadrant, nondistended, normal active bowel sounds. EXTREMITIES: Normal range of motion.? No edema. SKIN: Warm, dry, no rash. NEURO: No focal deficits.? Alert and oriented x3. PSYCH: Normal mood and affect Objective Data Vital Signs Vital Signs: Vital Signs - 24 hr 06/26/23 08:42 06/26/23 11:49 06/26/23 13:45 Temperature 101.6 F H Pulse Rate 94 94 Respiratory Rate 18 Blood Pressure 138/66 Pulse Oximetry 95 99 Oxygen Delivery Nasal Cannula Oxygen Flow Rate 2 06/26/23 10:00 06/26/23 12:00 06/26/23 14:00 Temperature Pulse Rate 88 93 94 Respiratory Rate Blood Pressure Pulse Oximetry Oxygen Delivery Oxygen Flow Rate 06/26/23 16:00 06/26/23 12:00 06/26/23 16:00 Temperature Pulse Rate 90 Respiratory Rate Blood Pressure Pulse Oximetry 95 95 Oxygen Delivery Nasal Cannula Nasal Cannula Oxygen Flow Rate 2 2 06/26/23 16:59 06/26/23 17:12 06/26/23 18:00 Temperature 99.1 F 99.1 F Pulse Rate 83 Respiratory Rate Blood Pressure Pulse Oximetry Oxygen Delivery Oxygen Flow Rate 06/26/23 19:43 06/26/23 21:05 06/26/23 20:00 Temperature 99.5 F Pulse Rate 76 75 Respiratory Rate 20 Blood Pressure 112/60 Pulse Oximetry 98 98 Oxygen Delivery Nasal Cannula Oxygen Flow Rate 2 06/26/23 20:00
[2023-06-27] MEDS: NYSTATIN 100,000 UNITS/ML SUSP 5 ML ORAL.SUSP PO ×4 (09:32→21:05)
[2023-06-27] MEDS: HYDROXYCHLOROQUINE SULFATE 200 MG TABLET PO ×2 (09:33→18:39)
[2023-06-27] MEDS: CHOLECALCIFEROL 1,000 UNITS TABLET 2000 UNITS PO (09:33)
[2023-06-27] MEDS: ASCORBIC ACID 500 MG TABLET 1000 MG PO (09:33)
[2023-06-27] MEDS: ASPIRIN 81 MG CHEWABLE TABLET PO (09:33)
[2023-06-27] MEDS: carvediloL 25 MG TABLET PO ×2 (09:34→20:50)
[2023-06-27] MEDS: LORATADINE 10 MG TABLET PO (09:34)
[2023-06-27] MEDS: PANTOPRAZOLE 40 MG TABLET PO ×2 (09:34→18:39)
[2023-06-27] MEDS: FOLIC ACID 1 MG TABLET PO (09:34)
[2023-06-27] MEDS: hydroCHLOROthiazide 12.5 MG CAPSULE PO (09:34)
[2023-06-27] MEDS: BACLOFEN 10 MG TABLET PO ×2 (09:35→18:39)
[2023-06-27] MEDS: HEPARIN SOD/D5W 100 UNITS/ML 25,000 UNITS/250 ML BAG 20 UNITS IV CONT (12:00)
[2023-06-27 12:34] LABS: Alanine Aminotransferase 26 U/L (6-50); Albumin Level 3.4 g/dL (3.5-5.1); Alkaline Phosphatase 74 U/L (38-126); Anion Gap 3 mmol/L (4-12); Aspartate Amino Transferase 26 U/L (17-59); Bilirubin,Total 0.6 mg/dL (0.2-1.3); Blood Urea Nitrogen 11 mg/dL (9-20); Calcium 8.1 mg/dL (8.4-10.2); Carbon Dioxide 28 mmol/L (22-30); Chloride 102 mmol/L (98-107); Estimated CRCL calculation 100 ml/min; Estimated Glomerular Filt Rate > 60; Glucose 102 mg/dL (65-110); Potassium 3.6 mmol/L (3.4-5.0); Sodium 133 mmol/L (137-145)
[2023-06-27] MEDS: SODIUM CHLORIDE 0.9% IV 1,000 ML 100 ML IV CONT ×2 (13:18→23:23)
[2023-06-27] MEDS: HYDROcodone/acetaminophen (*CRX) 5-325 MG TABLET 1 TAB PO (13:20)
[2023-06-27 13:41] LABS: Partial Thromboplastin Time 54.1 Seconds (22.3-36.8)
[2023-06-27] MEDS: HEPARIN SODIUM 5,000 UNITS/ML VIAL 7000 UNITS IV PUSH (15:07)
[2023-06-27] MEDS: polyethylene glycoL 3350 17 GM POWD.PACK PO (18:45)
--- NOTE | 2023-06-27 19:31 | PC.NURSE ---
1751 Dr. Perdue has been given report that the pt is c/o constipation. T.O.R.B Dr. Perdue / This RN 1.) Miralax 17gm PO Q day for constipation.
[2023-06-27] MEDS: APIXABAN 5 MG TABLET 10 MG PO (20:50)
[2023-06-27 21:04] LABS: Partial Thromboplastin Time 107.6 Seconds (22.3-36.8)
[2023-06-27] MEDS: ACETAMINOPHEN 325 MG TABLET 650 MG PO (21:06)
[2023-06-27 22:44] LABS: Glucose Point of Care 164 mg/dl (65-105)
--- NOTE | 2023-06-27 22:47 | PC.NURSE ---
2223 Patient called to desk wanting to know if the new medication he just took should make him feel the way he feeling. On assessment patient states he feels lightheaded and clammy. Visual and tactile assessment negative for clamminess. Blood sugar 164. Blood pressure low for patient at: 94/43. Patient took evening carvedilol and new PO med Eliquis. Blood pressure improving, no change in O2 saturation or heart rate; no sign of orthostatic hypotension with standing blood pressure. Patient denies coughing, passing gas, or getting up from bed. He does state he can have large fluctuation in BP at home based on home machine but has never felt like this. Merry Botello RN aware of condition and vitals; currently assessing patient.
[2023-06-28] VITALS (20 sets, daily range): BP systolic 104–156; BP diastolic 50–66; PULSE 67–90; RESP 16–20; TEMP 36.3–36.9; O2SAT 75–100
--- NOTE | 2023-06-28 00:01 | ECG_ITS ---
SEE SCANNED COPY FOR CONFIRMED REPORT MTDD
[2023-06-28 00:15] LABS: Basophils Absolute Auto 0.1 K/mm3 (0.0-0.1); Basophils Percent Auto 0.4 % (0.2-1.2); Eosinophils Absolute Auto 0.2 K/mm3 (0-0.3); Eosinophils Percent Auto 1.8 % (0-4.4); Hematocrit 37.7 % (42.0-52.0); Hemoglobin 11.5 g/dL (14.0-18.0); Immature Granulocyte Absolute 0.05 K/mm3 (0.00-0.031); Immature Granulocyte Percent A 0.4 % (0-0.5); Mean Corpuscular HGB Conc 30.5 g/dl (32-36); Mean Corpuscular Hemoglobin 25.6 pg (26-34); Mean Corpuscular Volume 83.8 fl (80-100); Mean Platelet Volume 9.6 fl (7.4-10.4); Monocytes Absolute Auto 1.3 K/mm3 (0.1-0.6); Monocytes Percent Auto 10.7 % (2.6-8.5); Neutrophils Absolute Auto 8.4 K/mm3 (1.3-6.7); Neutrophils Percent Auto 70.7 % (45.5-73.1); Platelet Count Result 199 k/mm3 (150-375); White Blood Count 11.9 K/mm3 (4.5-10.0)
[2023-06-28 00:27] LABS: INR 1.5; Prothrombin Time 18.8 Seconds (11.1-14.7)
[2023-06-28 00:28] LABS: Fibrinogen 541 mg/dl (215-510); Partial Thromboplastin Time 59.5 Seconds (22.3-36.8)
[2023-06-28 00:31] LABS: Alanine Aminotransferase 27 U/L (6-50); Albumin Level 3.4 g/dL (3.5-5.1); Alkaline Phosphatase 74 U/L (38-126); Anion Gap 3 mmol/L (4-12); Aspartate Amino Transferase 22 U/L (17-59); Bilirubin,Total 0.5 mg/dL (0.2-1.3); Blood Urea Nitrogen 10 mg/dL (9-20); Calcium 8.1 mg/dL (8.4-10.2); Carbon Dioxide 26 mmol/L (22-30); Chloride 106 mmol/L (98-107); Estimated CRCL calculation 110 ml/min; Estimated Glomerular Filt Rate > 60; Glucose 117 mg/dL (65-110); Lactic Acid Reflex 0.7 mmol/L (0.7-2.0); Magnesium 2.2 mg/dL (1.6-2.3); Potassium 3.5 mmol/L (3.4-5.0); Sodium 135 mmol/L (137-145)
[2023-06-28 00:42] LABS: NT Pro B Type Natriuretic Pept 67 pg/mL (19.9-100); Troponin I < 0.012 ng/mL (0.000-0.034)
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
--- NOTE | 2023-06-28 03:08 | PC.NURSE ---
06/28/23-0136: Pt with H/O DAMIÁN-intolerant to CPAP. Pt assessed due to SPO2 decreasing to 75-88% on RA. Pt sleeping and found to be snoring loudly. Pt immediately awakened when assessed w/SPO2 increasing to 94% on RA. Pt voices no other complaints at this time when woken. This RN placed Pt on 2L NC with SPO2 increasing to 100%.
[2023-06-28 03:54] LABS: Basophils Absolute Auto 0.1 K/mm3 (0.0-0.1); Basophils Percent Auto 0.6 % (0.2-1.2); Eosinophils Absolute Auto 0.3 K/mm3 (0-0.3); Eosinophils Percent Auto 2.6 % (0-4.4); Immature Granulocyte Absolute 0.05 K/mm3 (0.00-0.031); Immature Granulocyte Percent A 0.5 % (0-0.5); Lymphocytes Absolute Auto 1.81 K/mm3 (0.9-3.2); Lymphocytes Percent Auto 16.7 % (18.3-44.2); Mean Corpuscular Hemoglobin 25.4 pg (26-34); Mean Corpuscular Volume 84.6 fl (80-100); Mean Platelet Volume 9.6 fl (7.4-10.4); Monocytes Absolute Auto 1.1 K/mm3 (0.1-0.6); Monocytes Percent Auto 10.2 % (2.6-8.5); Neutrophils Absolute Auto 7.5 K/mm3 (1.3-6.7); Neutrophils Percent Auto 69.4 % (45.5-73.1); Platelet Count Result 207 k/mm3 (150-375); Red Blood Count 4.73 M/mm3 (4.6-6.20); Red Cell Distribution Width 18.2 % (11.5-14.5); White Blood Count 10.9 K/mm3 (4.5-10.0)
[2023-06-28 04:05] LABS: Alanine Aminotransferase 27 U/L (6-50); Albumin Level 3.6 g/dL (3.5-5.1); Alkaline Phosphatase 67 U/L (38-126); Anion Gap 3 mmol/L (4-12); Aspartate Amino Transferase 23 U/L (17-59); Bilirubin,Total 0.5 mg/dL (0.2-1.3); Blood Urea Nitrogen 10 mg/dL (9-20); Calcium 8.5 mg/dL (8.4-10.2); Carbon Dioxide 31 mmol/L (22-30); Chloride 106 mmol/L (98-107); Estimated CRCL calculation 100 ml/min; Estimated Glomerular Filt Rate > 60; Glucose 96 mg/dL (65-110); Magnesium 2.3 mg/dL (1.6-2.3); Sodium 140 mmol/L (137-145)
[2023-06-28] MEDS: polyethylene glycoL 3350 17 GM POWD.PACK PO (08:22)
[2023-06-28] MEDS: NYSTATIN 100,000 UNITS/ML SUSP 5 ML ORAL.SUSP PO ×4 (08:22→20:27)
[2023-06-28] MEDS: ACETAMINOPHEN 325 MG TABLET 650 MG PO (08:24)
[2023-06-28] MEDS: ASCORBIC ACID 500 MG TABLET 1000 MG PO (08:24)
[2023-06-28] MEDS: CHOLECALCIFEROL 1,000 UNITS TABLET 2000 UNITS PO (08:25)
[2023-06-28] MEDS: APIXABAN 5 MG TABLET 10 MG PO ×2 (08:25→20:26)
[2023-06-28] MEDS: ASPIRIN 81 MG CHEWABLE TABLET PO (08:26)
[2023-06-28] MEDS: BACLOFEN 10 MG TABLET PO ×2 (08:26→17:08)
[2023-06-28] MEDS: FOLIC ACID 1 MG TABLET PO (08:26)
[2023-06-28] MEDS: HYDROXYCHLOROQUINE SULFATE 200 MG TABLET PO ×2 (08:26→17:07)
[2023-06-28] MEDS: PANTOPRAZOLE 40 MG TABLET PO ×2 (08:26→17:07)
[2023-06-28] MEDS: LORATADINE 10 MG TABLET PO (08:26)
--- NOTE | 2023-06-28 09:06 | PC.NURSE ---
POC reviewed Dr. Perdeu et report given on B/P trend. BM status With T.O.R.B Dr. Perdue / This RN 1.) Hold Coreg.
[2023-06-28] MEDS: AZITHROMYCIN 500 MG/NS 250 ML 500 MG/250 ML BAG 250 MG IVPB (09:30)
[2023-06-28] MEDS: SODIUM CHLORIDE 0.9% IV 1,000 ML 100 ML IV CONT ×2 (09:30→22:38)
[2023-06-28] MEDS: VANCOMYCIN 1,250 MG/NS 250 ML 1,250 MG/250 ML BAG 166.67 MG IVPB ×2 (13:23→15:09)
--- NOTE | 2023-06-28 15:20 | PM.IMPN ---
Progress Note: A&P Assessment and Plan (1) Acute pulmonary embolism: Qualifiers: Acute cor pulmonale presence: without acute cor pulmonale Pulmonary embolism type: unspecified Qualified Code(s): I26.99 - Other pulmonary embolism without acute cor pulmonale Code(s): I26.99 - Other pulmonary embolism without acute cor pulmonale Status: Acute (2) Pulmonary embolism with infarction: Code(s): I26.99 - Other pulmonary embolism without acute cor pulmonale Status: Acute (3) Essential hypertension: Code(s): I10 - Essential (primary) hypertension Status: Acute Plan 42-year-old gentleman presented with left-sided chest pain. Started having bloating sensation and hurts with deep breaths. Pain in the left lower quadrant not improved by anything. Associated episode of coughing with episode of bloody sputum. ED evaluation vitals were stable laboratory studies show WBC count of 14.6 electrolytes within normal limit lactic was normal. Troponin negative. Procalcitonin 0.1. Urinalysis with no evidence of UTI. CTA chest abdomen pelvis was performed which showed Multiple fairly extensive pulmonary emboli bilaterally no evidence of right heart strain. Associated prominent pulmonary infarct in the left lower lobe. Small left pleural effusions. No significant finding in the abdominal or pelvis. Patient started on heparin drip. Thrombophilia workup. Venous duplex negative for DVT. Echocardiogram unremarkable with no evidence of right ventricular pressure overload. Switched to Eliquis. Thrombosis panel pending Fever spike 06/26/2023: Blood cultures obtained. Could be from pulmonary infarction. With placed on vanco/hypotensive episode will initiate antibiotics today. CT chest with worsening left pleural effusion. Initiated vancomycin ceftriaxone and azithromycin. Hypertension Generalized anxiety disorder Sarcoidosis on methotrexate and hydroxychloroquine History of polycythemia gets phlebotomy regularly. History of MTHFR gene mutation Migraine DAMIÁN does not wear CPAP DVT prophylaxis heparin drip switched to Eliquis now Subjective Date/time seen: 06/28/23 15:20 Interval history: Overnight events noted. Discussed with flatwork feeder. Feeling better now. Intermittent fever. CT chest abdomen pelvis reviewed off oxygen now Review of Systems Review of Systems: All systems reviewed & are unremarkable except as noted in HPI and below Exam Narrative: GENERAL: Well-appearing, well-nourished, and in no acute distress. HEAD: Normocephalic, atraumatic. EYES: PERRLA and EOMI. ENT: Nares clear, no rhinorrhea or epistaxis.? Mucous membranes moist. NECK: Supple. CHEST: Clear to auscultation.? No respiratory distress. HEART: Regular rate and rhythm.? No murmur heard.? Normal peripheral pulses. ABDOMEN: Soft,? Tenderness palpation left lower quadrant, nondistended, normal active bowel sounds. EXTREMITIES: Normal range of motion.? No edema. SKIN: Warm, dry, no rash. NEURO: No focal deficits.? Alert and oriented x3. PSYCH: Normal mood and affect Objective Data Vital Signs Vital Signs: Vital Signs - 24 hr 06/27/23 16:00 06/27/23 16:00 06/27/23 16:00 Temperature 98.4 F Pulse Rate 86 82 Respiratory Rate 18 Blood Pressure 127/58 L Pulse Oximetry 95 Oxygen Delivery Room Air Oxygen Flow Rate 06/27/23 18:00 06/27/23 19:30 06/27/23 20:50 Temperature 99.9 F H Pulse Rate 82 89 94 Respiratory Rate 18 Blood Pressure 127/55 L Pulse Oximetry 94 Oxygen Delivery Oxygen Flow Rate 06/27/23 22:24 06/27/23 22:27 06/27/23 22:46 Temperature Pulse Rate 85 84 84 Respiratory Rate 22 H 20 Blood Pressure 94/43 L 105/51 L 107/53 L Pulse Oximetry 95 95 95 Oxygen Delivery Oxygen Flow Rate 06/27/23 22:46 06/27/23 20:00 06/28/23 00:00 Temperature 99.0 F 97.4 F L Pulse Rate 89 79 Respiratory Rate 18 18 Blood Pressure 104/58 L Pulse Oximetry 94 95 Oxygen
[2023-06-28] MEDS: HYDROcodone/acetaminophen (*CRX) 5-325 MG TABLET 1 TAB PO (17:07)
[2023-06-28] MEDS: carvediloL 25 MG TABLET PO (20:26)
[2023-06-28 20:49] LABS: MRSA (PCR) NOT DETECTED (NOT DETECTE)
[2023-06-28] MEDS: VANCOMYCIN 1,500 MG/NS 500 ML 1,500 MG/500 ML BAG 250 MG IVPB (22:40)
[2023-06-29] VITALS (21 sets, daily range): BP systolic 116–159; BP diastolic 50–88; PULSE 74–96; RESP 19–28; TEMP 36.6–39.2; O2SAT 95–98
[2023-06-29] MEDS: SODIUM CHLORIDE NASAL GEL 14.1 GM 1 APPLIC NASAL (02:54)
[2023-06-29] MEDS: ARTIFICIAL TEARS OPHTH SOLN 15 ML BOTTLE 1 DROP EACH EYE (02:55)
[2023-06-29] MEDS: HYDROcodone/acetaminophen (*CRX) 5-325 MG TABLET 1 TAB PO ×2 (03:05→07:43)
[2023-06-29 04:03] LABS: Basophils Absolute Auto 0.1 K/mm3 (0.0-0.1); Basophils Percent Auto 0.6 % (0.2-1.2); Eosinophils Absolute Auto 0.3 K/mm3 (0-0.3); Hematocrit 38.1 % (42.0-52.0); Hemoglobin 11.1 g/dL (14.0-18.0); Immature Granulocyte Absolute 0.02 K/mm3 (0.00-0.031); Immature Granulocyte Percent A 0.2 % (0-0.5); Lymphocytes Absolute Auto 1.22 K/mm3 (0.9-3.2); Lymphocytes Percent Auto 12.2 % (18.3-44.2); Mean Corpuscular HGB Conc 29.1 g/dl (32-36); Mean Corpuscular Hemoglobin 25.5 pg (26-34); Mean Corpuscular Volume 87.4 fl (80-100); Mean Platelet Volume 9.7 fl (7.4-10.4); Monocytes Absolute Auto 0.9 K/mm3 (0.1-0.6); Monocytes Percent Auto 8.7 % (2.6-8.5); Neutrophils Absolute Auto 7.5 K/mm3 (1.3-6.7); Neutrophils Percent Auto 75.3 % (45.5-73.1); Platelet Count Result 211 k/mm3 (150-375); Red Blood Count 4.36 M/mm3 (4.6-6.20); Red Cell Distribution Width 18.3 % (11.5-14.5)
[2023-06-29 04:17] LABS: Alanine Aminotransferase 28 U/L (6-50); Albumin Level 3.2 g/dL (3.5-5.1); Alkaline Phosphatase 61 U/L (38-126); Anion Gap 2 mmol/L (4-12); Aspartate Amino Transferase 24 U/L (17-59); Bilirubin,Total 0.4 mg/dL (0.2-1.3); Blood Urea Nitrogen 8 mg/dL (9-20); Carbon Dioxide 25 mmol/L (22-30); Chloride 110 mmol/L (98-107); Estimated CRCL calculation 100 ml/min; Estimated Glomerular Filt Rate > 60; Glucose 116 mg/dL (65-110); Potassium 3.9 mmol/L (3.4-5.0); Sodium 137 mmol/L (137-145)
[2023-06-29 04:34] LABS: Hypochromasia 1+; Platelet Clumps Present; Platelet Estimate Adequate (Adequate)
[2023-06-29 04:37] LABS: Anisocytosis 1+; Schistocytes None Seen
[2023-06-29] MEDS: ASPIRIN 81 MG CHEWABLE TABLET PO (07:42)
[2023-06-29] MEDS: carvediloL 25 MG TABLET PO ×2 (07:59→20:00)
[2023-06-29] MEDS: ASCORBIC ACID 500 MG TABLET 1000 MG PO (07:59)
[2023-06-29] MEDS: CHOLECALCIFEROL 1,000 UNITS TABLET 2000 UNITS PO (07:59)
[2023-06-29] MEDS: FOLIC ACID 1 MG TABLET PO (07:59)
[2023-06-29] MEDS: BACLOFEN 10 MG TABLET PO ×2 (07:59→17:09)
[2023-06-29] MEDS: LORATADINE 10 MG TABLET PO (07:59)
[2023-06-29] MEDS: APIXABAN 5 MG TABLET 10 MG PO ×2 (07:59→19:59)
[2023-06-29] MEDS: PANTOPRAZOLE 40 MG TABLET PO ×2 (07:59→17:09)
[2023-06-29] MEDS: NYSTATIN 100,000 UNITS/ML SUSP 5 ML ORAL.SUSP PO ×4 (08:00→19:59)
[2023-06-29] MEDS: HYDROXYCHLOROQUINE SULFATE 200 MG TABLET PO ×2 (08:00→17:09)
[2023-06-29] MEDS: polyethylene glycoL 3350 17 GM POWD.PACK PO (08:00)
[2023-06-29] MEDS: AZITHROMYCIN 500 MG/NS 250 ML 500 MG/250 ML BAG 250 MG IVPB (09:08)
--- NOTE | 2023-06-29 17:01 | PM.IMPN ---
Progress Note: A&P Assessment and Plan (1) Acute pulmonary embolism: Qualifiers: Acute cor pulmonale presence: without acute cor pulmonale Pulmonary embolism type: unspecified Qualified Code(s): I26.99 - Other pulmonary embolism without acute cor pulmonale Code(s): I26.99 - Other pulmonary embolism without acute cor pulmonale Status: Acute (2) Pulmonary embolism with infarction: Code(s): I26.99 - Other pulmonary embolism without acute cor pulmonale Status: Acute (3) Essential hypertension: Code(s): I10 - Essential (primary) hypertension Status: Acute Plan 42-year-old gentleman presented with left-sided chest pain. Started having bloating sensation and hurts with deep breaths. Pain in the left lower quadrant not improved by anything. Associated episode of coughing with episode of bloody sputum. ED evaluation vitals were stable laboratory studies show WBC count of 14.6 electrolytes within normal limit lactic was normal. Troponin negative. Procalcitonin 0.1. Urinalysis with no evidence of UTI. CTA chest abdomen pelvis was performed which showed Multiple fairly extensive pulmonary emboli bilaterally no evidence of right heart strain. Associated prominent pulmonary infarct in the left lower lobe. Small left pleural effusions. No significant finding in the abdominal or pelvis. Patient started on heparin drip. Thrombophilia workup. Venous duplex negative for DVT. Echocardiogram unremarkable with no evidence of right ventricular pressure overload. Switched to Eliquis. Thrombosis panel pending Fever spike 06/26/2023: Blood cultures obtained. Could be from pulmonary infarction. With hypotension/presyncope started on broad-spectrum. CT chest with worsening left pleural effusion. Initiated vancomycin ceftriaxone and azithromycin. MRSA negative. Vancomycin switched to oral antibiotics today. Intermittent mild fever persist will also stop his IV fluid as blood pressure is much improved now Hypertension Generalized anxiety disorder Sarcoidosis on methotrexate and hydroxychloroquine History of polycythemia gets phlebotomy regularly. History of MTHFR gene mutation Migraine DAMIÁN does not wear CPAP DVT prophylaxis heparin drip switched to Eliquis now Subjective Date/time seen: 06/29/23 17:01 Interval history: No overnight events. Mild cough denies shortness of breath or chest pain. Labs reviewed Review of Systems Review of Systems: All systems reviewed & are unremarkable except as noted in HPI and below Exam Narrative: GENERAL: Well-appearing, well-nourished, and in no acute distress. HEAD: Normocephalic, atraumatic. EYES: PERRLA and EOMI. ENT: Nares clear, no rhinorrhea or epistaxis.? Mucous membranes moist. NECK: Supple. CHEST: Clear to auscultation.? No respiratory distress. HEART: Regular rate and rhythm.? No murmur heard.? Normal peripheral pulses. ABDOMEN: Soft,? Tenderness palpation left lower quadrant, nondistended, normal active bowel sounds. EXTREMITIES: Normal range of motion.? No edema. SKIN: Warm, dry, no rash. NEURO: No focal deficits.? Alert and oriented x3. PSYCH: Normal mood and affect Objective Data Vital Signs Vital Signs: Vital Signs - 24 hr 06/28/23 17:16 06/28/23 18:00 06/28/23 20:00 Temperature Pulse Rate 89 86 Respiratory Rate Blood Pressure 124/54 L Pulse Oximetry Oxygen Delivery Oxygen Flow Rate 06/28/23 20:00 06/28/23 20:26 06/28/23 20:00 Temperature 97.4 F L Pulse Rate 81 86 86 Respiratory Rate 20 20 Blood Pressure 156/66 H Pulse Oximetry 100 100 Oxygen Delivery Nasal Cannula Oxygen Flow Rate 2 06/28/23 22:00 06/28/23 23:20 06/28/23 23:38 Temperature 97.8 F Pulse Rate 83 90 89 Respiratory Rate 20 18 Blood Pressure 136/50 L Pulse Oximetry 97 98 Oxygen Delivery Nasal Cannula Oxygen Flow Rate 1 06/29/23 00:00 06/29/23 02:00 06/29/23 03:00 Temperature Pulse Rate 90 93 R
[2023-06-29] MEDS: ACETAMINOPHEN 325 MG TABLET 650 MG PO (22:23)
--- NOTE | 2023-06-29 22:48 | PC.NURSE ---
2142: Patient received from ICU. Provided with snack, addressed temperature and set up O2 for night time.
[2023-06-30] VITALS (15 sets, daily range): BP systolic 126–147; BP diastolic 52–81; PULSE 79–99; RESP 16–20; TEMP 36.4–37.8; O2SAT 95–98
--- NOTE | 2023-06-30 01:59 | PC.NURSE ---
This patient, Amber Green, [facility] at 2140. Personal belongings sent with patient. Report given to Gosia CHAIREZ. Appropriate documentation sent with patient.
[2023-06-30 05:44] LABS: Basophils Absolute Auto 0.1 K/mm3 (0.0-0.1); Basophils Percent Auto 0.7 % (0.2-1.2); Eosinophils Absolute Auto 0.4 K/mm3 (0-0.3); Eosinophils Percent Auto 4.3 % (0-4.4); Hematocrit 41.3 % (42.0-52.0); Hemoglobin 12.2 g/dL (14.0-18.0); Immature Granulocyte Absolute 0.03 K/mm3 (0.00-0.031); Immature Granulocyte Percent A 0.3 % (0-0.5); Lymphocytes Absolute Auto 1.62 K/mm3 (0.9-3.2); Lymphocytes Percent Auto 17.7 % (18.3-44.2); Mean Corpuscular HGB Conc 29.5 g/dl (32-36); Mean Corpuscular Hemoglobin 25.3 pg (26-34); Mean Corpuscular Volume 85.5 fl (80-100); Mean Platelet Volume 9.8 fl (7.4-10.4); Monocytes Absolute Auto 0.9 K/mm3 (0.1-0.6); Monocytes Percent Auto 9.4 % (2.6-8.5); Neutrophils Absolute Auto 6.2 K/mm3 (1.3-6.7); Neutrophils Percent Auto 67.6 % (45.5-73.1); Platelet Count Result 251 k/mm3 (150-375); Red Blood Count 4.83 M/mm3 (4.6-6.20); Red Cell Distribution Width 17.6 % (11.5-14.5); White Blood Count 9.2 K/mm3 (4.5-10.0)
[2023-06-30 05:51] LABS: Alanine Aminotransferase 46 U/L (6-50); Albumin Level 3.7 g/dL (3.5-5.1); Alkaline Phosphatase 61 U/L (38-126); Anion Gap 5 mmol/L (4-12); Aspartate Amino Transferase 38 U/L (17-59); Bilirubin,Total 0.5 mg/dL (0.2-1.3); Blood Urea Nitrogen 10 mg/dL (9-20); Carbon Dioxide 27 mmol/L (22-30); Chloride 109 mmol/L (98-107); Estimated CRCL calculation 100 ml/min; Estimated Glomerular Filt Rate > 60; Glucose 110 mg/dL (65-110); Magnesium 2.2 mg/dL (1.6-2.3); Sodium 141 mmol/L (137-145)
[2023-06-30] MEDS: CHOLECALCIFEROL 1,000 UNITS TABLET 2000 UNITS PO (08:28)
[2023-06-30] MEDS: LORATADINE 10 MG TABLET PO (08:28)
[2023-06-30] MEDS: ASPIRIN 81 MG CHEWABLE TABLET PO (08:28)
[2023-06-30] MEDS: PANTOPRAZOLE 40 MG TABLET PO ×2 (08:28→17:43)
[2023-06-30] MEDS: AZITHROMYCIN 250 MG TABLET 500 MG PO (08:28)
[2023-06-30] MEDS: APIXABAN 5 MG TABLET 10 MG PO ×2 (08:29→20:29)
[2023-06-30] MEDS: polyethylene glycoL 3350 17 GM POWD.PACK PO (08:29)
[2023-06-30] MEDS: ACETAMINOPHEN 325 MG TABLET 650 MG PO ×2 (08:29→18:34)
[2023-06-30] MEDS: FOLIC ACID 1 MG TABLET PO (08:29)
[2023-06-30] MEDS: ASCORBIC ACID 500 MG TABLET 1000 MG PO (08:29)
[2023-06-30] MEDS: AMOXICILLIN/CLAVULANATE K 875-125 MG TAB 1 TABLET PO ×2 (08:29→20:29)
[2023-06-30] MEDS: carvediloL 25 MG TABLET PO ×2 (08:30→20:29)
[2023-06-30] MEDS: BACLOFEN 10 MG TABLET PO ×2 (08:35→17:43)
[2023-06-30] MEDS: HYDROXYCHLOROQUINE SULFATE 200 MG TABLET PO ×2 (08:35→18:25)
--- NOTE | 2023-06-30 16:24 | PM.IMPN ---
Progress Note: A&P Assessment and Plan (1) Acute pulmonary embolism: Qualifiers: Acute cor pulmonale presence: without acute cor pulmonale Pulmonary embolism type: unspecified Qualified Code(s): I26.99 - Other pulmonary embolism without acute cor pulmonale Code(s): I26.99 - Other pulmonary embolism without acute cor pulmonale Status: Acute (2) Pulmonary embolism with infarction: Code(s): I26.99 - Other pulmonary embolism without acute cor pulmonale Status: Acute (3) Essential hypertension: Code(s): I10 - Essential (primary) hypertension Status: Acute Plan 42-year-old gentleman presented with left-sided chest pain. Started having bloating sensation and hurts with deep breaths. Pain in the left lower quadrant not improved by anything. Associated episode of coughing with episode of bloody sputum. ED evaluation vitals were stable laboratory studies show WBC count of 14.6 electrolytes within normal limit lactic was normal. Troponin negative. Procalcitonin 0.1. Urinalysis with no evidence of UTI. CTA chest abdomen pelvis was performed which showed Multiple fairly extensive pulmonary emboli bilaterally no evidence of right heart strain. Associated prominent pulmonary infarct in the left lower lobe. Small left pleural effusions. No significant finding in the abdominal or pelvis. Patient started on heparin drip. Thrombophilia workup. Venous duplex negative for DVT. Echocardiogram unremarkable with no evidence of right ventricular pressure overload. Switched to Eliquis. Thrombosis panel pending Fever spike 06/26/2023: Blood cultures obtained. Could be from pulmonary infarction. With hypotension/presyncope started on broad-spectrum. CT chest with worsening left pleural effusion. Initiated vancomycin ceftriaxone and azithromycin. MRSA negative. Vancomycin switched to oral antibiotics today. Intermittent mild fever persist. Chest x-ray repeated with the worsening left-sided pleural effusion. Discussed thoracentesis with the patient. Agreeable and will order for IR diagnostic tap. Hypertension Generalized anxiety disorder Sarcoidosis on methotrexate and hydroxychloroquine History of polycythemia gets phlebotomy regularly. History of MTHFR gene mutation Migraine DAMIÁN does not wear CPAP DVT prophylaxis heparin drip switched to Eliquis now Subjective Date/time seen: 06/30/23 16:24 Interval history: Limited cough. Intermittent lightheadedness. Farrukh a fever persist. Review of Systems Review of Systems: All systems reviewed & are unremarkable except as noted in HPI and below Exam Narrative: GENERAL: Well-appearing, well-nourished, and in no acute distress. HEAD: Normocephalic, atraumatic. EYES: PERRLA and EOMI. ENT: Nares clear, no rhinorrhea or epistaxis.? Mucous membranes moist. NECK: Supple. CHEST: Diminished breath sound on left side, No respiratory distress. HEART: Regular rate and rhythm.? No murmur heard.? Normal peripheral pulses. ABDOMEN: Soft,? Tenderness palpation left lower quadrant, nondistended, normal active bowel sounds. EXTREMITIES: Normal range of motion.? No edema. SKIN: Warm, dry, no rash. NEURO: No focal deficits.? Alert and oriented x3. PSYCH: Normal mood and affect Objective Data Vital Signs Vital Signs: Vital Signs - 24 hr 06/29/23 17:05 06/29/23 19:27 06/29/23 19:28 Temperature 99.4 F 102.6 F H 102.3 F H Pulse Rate 89 91 Respiratory Rate 28 H 20 Blood Pressure 159/88 H 133/66 Pulse Oximetry 97 98 Oxygen Delivery 06/29/23 20:00 06/29/23 22:23 06/29/23 23:23 Temperature 101.7 F H 99.6 F Pulse Rate 96 Respiratory Rate Blood Pressure Pulse Oximetry Oxygen Delivery 06/29/23 20:00 06/29/23 20:00 06/30/23 00:00 Temperature Pulse Rate 96 81 Respiratory Rate Blood Pressure Pulse Oximetry Oxygen Delivery Room Air 06/29/23 23:23 06/30/23 06:26 06/29/23 19:30 Temperature 99.6 F 98.6 F
[2023-06-30] MEDS: NYSTATIN 100,000 UNITS/ML SUSP 5 ML ORAL.SUSP PO (20:30)
[2023-07-01] VITALS (10 sets, daily range): BP systolic 121–135; BP diastolic 61–75; PULSE 72–89; RESP 16–18; TEMP 36.2–36.6; O2SAT 97–99
[2023-07-01 05:46] LABS: Basophils Absolute Auto 0.1 K/mm3 (0.0-0.1); Basophils Percent Auto 0.9 % (0.2-1.2); Eosinophils Absolute Auto 0.4 K/mm3 (0-0.3); Eosinophils Percent Auto 4.7 % (0-4.4); Hematocrit 42.2 % (42.0-52.0); Hemoglobin 12.2 g/dL (14.0-18.0); Immature Granulocyte Absolute 0.02 K/mm3 (0.00-0.031); Immature Granulocyte Percent A 0.3 % (0-0.5); Lymphocytes Absolute Auto 1.15 K/mm3 (0.9-3.2); Lymphocytes Percent Auto 14.9 % (18.3-44.2); Mean Corpuscular HGB Conc 28.9 g/dl (32-36); Mean Corpuscular Hemoglobin 24.8 pg (26-34); Mean Corpuscular Volume 85.9 fl (80-100); Mean Platelet Volume 9.8 fl (7.4-10.4); Monocytes Absolute Auto 0.7 K/mm3 (0.1-0.6); Monocytes Percent Auto 8.9 % (2.6-8.5); Neutrophils Absolute Auto 5.4 K/mm3 (1.3-6.7); Neutrophils Percent Auto 70.3 % (45.5-73.1); Platelet Count Result 254 k/mm3 (150-375); Red Blood Count 4.91 M/mm3 (4.6-6.20); Red Cell Distribution Width 17.7 % (11.5-14.5); White Blood Count 7.7 K/mm3 (4.5-10.0)
[2023-07-01 06:00] LABS: Alanine Aminotransferase 58 U/L (6-50); Albumin Level 3.7 g/dL (3.5-5.1); Alkaline Phosphatase 69 U/L (38-126); Anion Gap 6 mmol/L (4-12); Aspartate Amino Transferase 37 U/L (17-59); Bilirubin,Total 0.4 mg/dL (0.2-1.3); Blood Urea Nitrogen 13 mg/dL (9-20); Carbon Dioxide 28 mmol/L (22-30); Chloride 109 mmol/L (98-107); Estimated CRCL calculation 99 ml/min; Estimated Glomerular Filt Rate > 60; Glucose 132 mg/dL (65-110); Magnesium 2.2 mg/dL (1.6-2.3); Potassium 4.6 mmol/L (3.4-5.0); Sodium 143 mmol/L (137-145)
[2023-07-01 08:27] LABS: INR 1.1; Prothrombin Time 14.7 Seconds (11.1-14.7)
[2023-07-01 08:29] LABS: Partial Thromboplastin Time 34.2 Seconds (22.3-36.8)
[2023-07-01] MEDS: ANASTROZOLE (*CHEMO) 1 MG TABLET PO (08:47)
[2023-07-01] MEDS: PANTOPRAZOLE 40 MG TABLET PO ×2 (08:47→17:27)
[2023-07-01] MEDS: CHOLECALCIFEROL 1,000 UNITS TABLET 2000 UNITS PO (08:47)
[2023-07-01] MEDS: FOLIC ACID 1 MG TABLET PO (08:47)
[2023-07-01] MEDS: AMOXICILLIN/CLAVULANATE K 875-125 MG TAB 1 TABLET PO ×2 (08:48→20:18)
[2023-07-01] MEDS: carvediloL 25 MG TABLET PO ×2 (08:48→20:18)
[2023-07-01] MEDS: AZITHROMYCIN 250 MG TABLET 500 MG PO (08:48)
[2023-07-01] MEDS: LORATADINE 10 MG TABLET PO (08:51)
[2023-07-01] MEDS: HYDROXYCHLOROQUINE SULFATE 200 MG TABLET PO ×2 (08:51→17:27)
[2023-07-01] MEDS: BACLOFEN 10 MG TABLET PO ×2 (08:51→17:27)
[2023-07-01] MEDS: ASCORBIC ACID 500 MG TABLET 1000 MG PO (08:54)
--- NOTE | 2023-07-01 10:12 | PC.NURSE ---
Addendum entered by Olaf Kenny RN 07/01/23 10:17: Unable to do thoracentesis today per radiologist, Eliquis must be held all day today 07/01/23 and then thoracentesis scheduled tomorrow 07/02/23. Per eduin Carrasco to hold Eliquis AM dose tomorrow for thoracentesis and resume right after. Original Note: Per eduin Carrasco to hold AM and PM 07/01/23 dose of Eliquis for scheduled left thoracentesis and resume scheduled Eliquis dose tomorrow 07/02/23.
--- NOTE | 2023-07-01 11:44 | PM.IMPN ---
Progress Note: A&P Assessment and Plan (1) Acute pulmonary embolism: Qualifiers: Acute cor pulmonale presence: without acute cor pulmonale Pulmonary embolism type: unspecified Qualified Code(s): I26.99 - Other pulmonary embolism without acute cor pulmonale Code(s): I26.99 - Other pulmonary embolism without acute cor pulmonale Status: Acute (2) Pulmonary embolism with infarction: Code(s): I26.99 - Other pulmonary embolism without acute cor pulmonale Status: Acute (3) Essential hypertension: Code(s): I10 - Essential (primary) hypertension Status: Acute Plan 42-year-old gentleman presented with left-sided chest pain. Started having bloating sensation and hurts with deep breaths. Pain in the left lower quadrant not improved by anything. Associated episode of coughing with episode of bloody sputum. ED evaluation vitals were stable laboratory studies show WBC count of 14.6 electrolytes within normal limit lactic was normal. Troponin negative. Procalcitonin 0.1. Urinalysis with no evidence of UTI. CTA chest abdomen pelvis was performed which showed Multiple fairly extensive pulmonary emboli bilaterally no evidence of right heart strain. Associated prominent pulmonary infarct in the left lower lobe. Small left pleural effusions. No significant finding in the abdominal or pelvis. Patient started on heparin drip. Thrombophilia workup. Venous duplex negative for DVT. Echocardiogram unremarkable with no evidence of right ventricular pressure overload. Switched to Eliquis. Thrombosis panel pending Fever spike 06/26/2023: Blood cultures obtained. Could be from pulmonary infarction. With hypotension/presyncope started on broad-spectrum. CT chest with worsening left pleural effusion. Initiated vancomycin ceftriaxone and azithromycin. MRSA negative. Vancomycin switched to oral antibiotics today. Intermittent mild fever persist. Chest x-ray repeated with the worsening left-sided pleural effusion. Discussed thoracentesis with the patient. Agreeable and will order for IR diagnostic tap. 06/30: will hold Eliquis today, plans thoracentesis tomorrow, consult line helper for evaluation treatment line helper recommend to start heparin for bridging while holding Eliquis today tomorrow, will resume Eliquis upper tomorrow if stable under thoracentesis Hypertension Generalized anxiety disorder Sarcoidosis on methotrexate and hydroxychloroquine History of polycythemia gets phlebotomy regularly. History of MTHFR gene mutation Migraine DAMIÁN does not wear CPAP DVT prophylaxis heparin drip switched to Eliquis now Subjective Date/time seen: 07/01/23 11:44 Interval history: Patient has no new issue even overnight, afebrile overnight, no significant chest pain, hemoptysis, Exam Narrative: GENERAL: Well-appearing, well-nourished, and in no acute distress. HEAD: Normocephalic, atraumatic. EYES: PERRLA and EOMI. ENT: Nares clear, no rhinorrhea or epistaxis.? Mucous membranes moist. NECK: Supple. CHEST: Diminished breath sound on left side, No respiratory distress. HEART: Regular rate and rhythm.? No murmur heard.? Normal peripheral pulses. ABDOMEN: Soft,? Tenderness palpation left lower quadrant, nondistended, normal active bowel sounds. EXTREMITIES: Normal range of motion.? No edema. SKIN: Warm, dry, no rash. NEURO: No focal deficits.? Alert and oriented x3. PSYCH: Normal mood and affect Objective Data Vital Signs Vital Signs: Vital Signs - 24 hr 06/30/23 14:43 06/30/23 16:00 06/30/23 18:27 Temperature 98.7 F 99.0 F Pulse Rate 82 81 Respiratory Rate 18 Blood Pressure 126/52 L Pulse Oximetry 96 06/30/23 18:34 06/30/23 20:29 06/30/23 20:00 Temperature 99.0 F Pulse Rate 80 87 Respiratory Rate Blood Pressure Pulse Oximetry 06/30/23 22:31 07/01/23 00:00 07/01/23 04:00 Temperature 97.6 F Pulse Rate 88 72 76 Respiratory Rate 16 Blood Pr
--- NOTE | 2023-07-01 16:38 | PM.CNPUL ---
Assessment and Plan Assessment and plan (1) Pulmonary embolism with infarction: Code(s): I26.99 - Other pulmonary embolism without acute cor pulmonale Status: Acute Assessment and Plan: Patient with a history of polycythemia vera status post phlebotomy on 06/23/2023, obesity, positive serologies for lupus but later diagnosed with sarcoidosis on methotrexate and hydroxychloroquine by rheumatology Dr Worley and now acute pulmonary embolism with left lower lobe pulmonary infarct and left pleural effusion. Patient is hemodynamically stable, no evidence of right heart strain, lower extremity Dopplers negative, on room air oxygen and is fever free for the last 48 hours on antibiotics for possible pneumonia. Overall the patient has clinically improved but remains with left-sided pleuritic chest pain, fullness of the chest. Contributing factors to PE include polycythemia vera and possibly positive serologies for lupus. Plan: Agree with anticoagulation with Eliquis. Patient is immunosuppressed and has fevers and now moderate left pleural effusion. This pleural effusion is likely related to his pulmonary embolism. Agree with thoracentesis to exclude a complex parapneumonic process or empyema. Last dose of Eliquis 06/30/2023 at 8:30 p.m.. Recommend continuing anticoagulation and I have spoken to Radiology and recommend restarting IV heparin so that this can be turned off 1 hour prior to the thoracentesis which should be performed on 07/02/2023. I will check a chest x-ray tomorrow morning prior to his procedure to reassess left effusion. Previous serologies from Dr. Worley office should be obtained. Will follow with you. History of Present Illness History of Present Illness Consult date: 07/01/23 Chief complaint: Acute Pulmonary Emboli/Pulmonary Infarct Narrative: 07/01/2023: This is a new pulmonary consult for left pulmonary embolism and left pleural effusion. 42-year-old with a history of sarcoidosis, obstructive sleep apnea untreated, Obesity, polycythemia vera with last phlebotomy 06/23/2023, hypertension, GERD, herniated C5-C6 disc and molluscum. regarding his sarcoid. The patient tells me he was diagnosed with lupus for 10 years with positive serologies. In he was started on methotrexate and hydroxychloroquine per his drawing in machine tender helper Dr. Lynch. He was having worsening joint pains at that time. On 06/27/2022 he underwent a bronchoscopy with biopsies and was told that the bronchoscopy did not show evidence of sarcoidosis. The patient states that he felt better after starting the methotrexate and hydroxychloroquine for a few months but then his symptoms slowly returned. Regarding his obstructive sleep apnea he had a sleep study in [address] Alfred ochoa and was prescribed CPAP. He could not tolerate the CPAP. He is currently on no treatment. He has seen an ENT physician and he is deviated septum. He was considered for the hypoglossal nerve stimulator inspire system but his body weight is too much at this time. Regarding his polycythemia vera, he sees web communications specialist, Dr. Pablo wells and receives phlebotomies when is hematocrit is greater than 50. His last phlebotomy was 06/23/2023. Patient tells me on 06/06 he remembers having no respiratory issues, he walked all day hunting for mushrooms and then played soccer with his sons and had shortness of breath with heavy exertion. On 06/12/2023 he went mushroom hunting again but developed dyspnea on exertion with the same activity. His dyspnea on exertion continued and he had low-grade fevers. He went to urgent care on 06/14/2023 and had a chest x-ray that was described as negative. He was placed on prednisone and amoxicillin and improved. He had minimal symptoms when he went to his PCP on 06/18 and said he was much better. On 06/21 his shortness of breath returned any now had gastrointestinal bloating. On 06/25 at 1 in the morning he developed fever, chill
[2023-07-01] MEDS: HEPARIN SOD/D5W 100 UNITS/ML 25,000 UNITS/250 ML BAG 15 UNITS IV CONT (18:13)
[2023-07-01] MEDS: HEPARIN SODIUM 5,000 UNITS/ML VIAL 6500 UNITS IV PUSH (18:14)
[2023-07-01 18:26] LABS: Basophils Absolute Auto 0.1 K/mm3 (0.0-0.1); Basophils Percent Auto 0.9 % (0.2-1.2); Eosinophils Absolute Auto 0.4 K/mm3 (0-0.3); Eosinophils Percent Auto 4.1 % (0-4.4); Hematocrit 41.7 % (42.0-52.0); Hemoglobin 12.6 g/dL (14.0-18.0); Immature Granulocyte Absolute 0.03 K/mm3 (0.00-0.031); Immature Granulocyte Percent A 0.3 % (0-0.5); Lymphocytes Absolute Auto 1.61 K/mm3 (0.9-3.2); Lymphocytes Percent Auto 18.4 % (18.3-44.2); Mean Corpuscular HGB Conc 30.2 g/dl (32-36); Mean Corpuscular Hemoglobin 25.4 pg (26-34); Mean Corpuscular Volume 84.1 fl (80-100); Monocytes Absolute Auto 0.5 K/mm3 (0.1-0.6); Monocytes Percent Auto 5.4 % (2.6-8.5); Neutrophils Absolute Auto 6.2 K/mm3 (1.3-6.7); Neutrophils Percent Auto 70.9 % (45.5-73.1); Platelet Count Result 286 k/mm3 (150-375); Red Blood Count 4.96 M/mm3 (4.6-6.20); Red Cell Distribution Width 17.6 % (11.5-14.5); White Blood Count 8.8 K/mm3 (4.5-10.0)
[2023-07-01 18:36] LABS: INR 1.1; Prothrombin Time 14.2 Seconds (11.1-14.7)
[2023-07-01 18:38] LABS: Partial Thromboplastin Time 33.7 Seconds (22.3-36.8)
[2023-07-01] MEDS: NYSTATIN 100,000 UNITS/ML SUSP 5 ML ORAL.SUSP PO (20:19)
[2023-07-02] VITALS (10 sets, daily range): BP systolic 136–137; BP diastolic 62–63; PULSE 68–84; RESP 16–18; TEMP 36.4–36.5; O2SAT 97–100
[2023-07-02 01:17] LABS: Partial Thromboplastin Time 51.9 Seconds (22.3-36.8)
[2023-07-02] MEDS: HEPARIN SODIUM 5,000 UNITS/ML VIAL 6500 UNITS IV PUSH ×2 (01:27→15:32)
[2023-07-02 06:21] LABS: Basophils Absolute Auto 0.1 K/mm3 (0.0-0.1); Basophils Percent Auto 1.4 % (0.2-1.2); Eosinophils Absolute Auto 0.3 K/mm3 (0-0.3); Eosinophils Percent Auto 4.6 % (0-4.4); Hematocrit 40.9 % (42.0-52.0); Immature Granulocyte Absolute 0.02 K/mm3 (0.00-0.031); Immature Granulocyte Percent A 0.3 % (0-0.5); Lymphocytes Absolute Auto 1.71 K/mm3 (0.9-3.2); Lymphocytes Percent Auto 23.3 % (18.3-44.2); Mean Corpuscular HGB Conc 29.3 g/dl (32-36); Mean Corpuscular Hemoglobin 24.9 pg (26-34); Mean Corpuscular Volume 84.9 fl (80-100); Mean Platelet Volume 10.2 fl (7.4-10.4); Monocytes Absolute Auto 0.6 K/mm3 (0.1-0.6); Neutrophils Absolute Auto 4.6 K/mm3 (1.3-6.7); Neutrophils Percent Auto 62.4 % (45.5-73.1); Platelet Count Result 267 k/mm3 (150-375); Red Blood Count 4.82 M/mm3 (4.6-6.20); Red Cell Distribution Width 17.3 % (11.5-14.5); White Blood Count 7.3 K/mm3 (4.5-10.0)
[2023-07-02 06:43] LABS: Lactate Dehydrogenase 252 U/L (120-246)
[2023-07-02] MEDS: AZITHROMYCIN 250 MG TABLET 500 MG PO (09:22)
[2023-07-02] MEDS: LORATADINE 10 MG TABLET PO (09:23)
[2023-07-02] MEDS: AMOXICILLIN/CLAVULANATE K 875-125 MG TAB 1 TABLET PO ×2 (09:23→20:55)
[2023-07-02] MEDS: ASCORBIC ACID 500 MG TABLET 1000 MG PO (09:23)
[2023-07-02] MEDS: carvediloL 25 MG TABLET PO ×2 (09:23→20:55)
[2023-07-02] MEDS: BACLOFEN 10 MG TABLET PO ×2 (09:23→18:20)
[2023-07-02] MEDS: PANTOPRAZOLE 40 MG TABLET PO ×2 (09:24→18:21)
[2023-07-02] MEDS: FOLIC ACID 1 MG TABLET PO (09:24)
[2023-07-02] MEDS: HYDROXYCHLOROQUINE SULFATE 200 MG TABLET PO ×2 (09:24→18:21)
[2023-07-02] MEDS: CHOLECALCIFEROL 1,000 UNITS TABLET 2000 UNITS PO (09:25)
--- NOTE | 2023-07-02 09:42 | PM.IMPN ---
Progress Note: A&P Assessment and Plan (1) Acute pulmonary embolism: Qualifiers: Acute cor pulmonale presence: without acute cor pulmonale Pulmonary embolism type: unspecified Qualified Code(s): I26.99 - Other pulmonary embolism without acute cor pulmonale Code(s): I26.99 - Other pulmonary embolism without acute cor pulmonale Status: Acute (2) Pulmonary embolism with infarction: Code(s): I26.99 - Other pulmonary embolism without acute cor pulmonale Status: Acute (3) Essential hypertension: Code(s): I10 - Essential (primary) hypertension Status: Acute Plan 42-year-old gentleman presented with left-sided chest pain. Started having bloating sensation and hurts with deep breaths. Pain in the left lower quadrant not improved by anything. Associated episode of coughing with episode of bloody sputum. ED evaluation vitals were stable laboratory studies show WBC count of 14.6 electrolytes within normal limit lactic was normal. Troponin negative. Procalcitonin 0.1. Urinalysis with no evidence of UTI. CTA chest abdomen pelvis was performed which showed Multiple fairly extensive pulmonary emboli bilaterally no evidence of right heart strain. Associated prominent pulmonary infarct in the left lower lobe. Small left pleural effusions. No significant finding in the abdominal or pelvis. Patient started on heparin drip. Thrombophilia workup. Venous duplex negative for DVT. Echocardiogram unremarkable with no evidence of right ventricular pressure overload. Switched to Eliquis. Thrombosis panel pending Fever spike 06/26/2023: Blood cultures obtained. Could be from pulmonary infarction. With hypotension/presyncope started on broad-spectrum. CT chest with worsening left pleural effusion. Initiated vancomycin ceftriaxone and azithromycin. MRSA negative. Vancomycin switched to oral antibiotics today. Intermittent mild fever persist. Chest x-ray repeated with the worsening left-sided pleural effusion. Discussed thoracentesis with the patient. Agreeable and will order for IR diagnostic tap. 06/30: will hold Eliquis today, plans thoracentesis tomorrow, consult aircraft charter dispatcher for evaluation treatment aircraft charter dispatcher recommend to start heparin for bridging while holding Eliquis today tomorrow, will resume Eliquis if stable under thoracentesis 07/01: continue heparin drip per aircraft charter dispatcher recommendation, plans thoracentesis today. patient denies black emesis, hematuria, hemoptysis Hypertension Generalized anxiety disorder Sarcoidosis on methotrexate and hydroxychloroquine History of polycythemia gets phlebotomy regularly. History of MTHFR gene mutation Migraine DAMIÁN does not wear CPAP DVT prophylaxis heparin drip switched to Eliquis now Subjective Date/time seen: 07/02/23 09:42 Interval history: Patient has no new issue even overnight, patient denies chest pain, hemoptysis, but has epigastric discomfort, patient denies nausea vomiting black stool, Exam Narrative: GENERAL: Well-appearing, well-nourished, and in no acute distress. HEAD: Normocephalic, atraumatic. EYES: PERRLA and EOMI. ENT: Nares clear, no rhinorrhea or epistaxis.? Mucous membranes moist. NECK: Supple. CHEST: Diminished breath sound on left side, No respiratory distress. HEART: Regular rate and rhythm.? No murmur heard.? Normal peripheral pulses. ABDOMEN: Soft,? Tenderness palpation left lower quadrant, nondistended, normal active bowel sounds. EXTREMITIES: Normal range of motion.? No edema. SKIN: Warm, dry, no rash. NEURO: No focal deficits.? Alert and oriented x3. PSYCH: Normal mood and affect Objective Data Vital Signs Vital Signs: Vital Signs - 24 hr 07/01/23 12:00 07/01/23 14:00 07/01/23 16:00 Temperature 97.6 F Pulse Rate 89 82 87 Respiratory Rate 16 Blood Pressure 135/75 Pulse Oximetry 99 07/01/23 20:18 07/01/23 20:18 07/01/23 20:00 Temperature 97.8 F Pulse Rate 84 84 82 Re
--- NOTE | 2023-07-02 10:14 | PM.PNPUL ---
Progress Note: A&P Assessment and Plan (1) Acute pulmonary embolism: Qualifiers: Acute cor pulmonale presence: without acute cor pulmonale Pulmonary embolism type: unspecified Qualified Code(s): I26.99 - Other pulmonary embolism without acute cor pulmonale Code(s): I26.99 - Other pulmonary embolism without acute cor pulmonale Status: Acute Assessment and Plan: Patient with a history of polycythemia vera status post phlebotomy on 06/23/2023, obesity, positive serologies for lupus but later diagnosed with sarcoidosis on methotrexate and hydroxychloroquine by rheumatology Dr Worley and now acute pulmonary embolism with left lower lobe pulmonary infarct and left pleural effusion. Patient is hemodynamically stable, no evidence of right heart strain, lower extremity Dopplers negative, on room air oxygen and is fever free for the last 48 hours on antibiotics for possible pneumonia. Overall the patient has clinically improved but remains with left-sided pleuritic chest pain, fullness of the chest. Plan: Patient is scheduled to undergo thoracentesis to exclude empyema. Following a thoracentesis he will be switched back to his direct anticoagulant. Will continue to monitor his respiratory status. (2) Pulmonary embolism with infarction: Code(s): I26.99 - Other pulmonary embolism without acute cor pulmonale Status: Acute (3) Obese: Qualifiers: Obesity type: due to excess calories Obesity classification: adult class 2 (BMI 35 - 39.9) Serious obesity comorbidity presence: with serious comorbidity Body mass index: BMI 38.0-38.9 Qualified Code(s): E66.01 - Morbid (severe) obesity due to excess calories; Z68.38 - Body mass index [BMI] 38.0-38.9, adult Code(s): E66.9 - Obesity, unspecified Status: Acute (4) Polycythemia: Code(s): D75.1 - Secondary polycythemia Status: Acute (5) HTN (hypertension): Qualifiers: Hypertension type: primary hypertension Qualified Code(s): I10 - Essential (primary) hypertension Code(s): I10 - Essential (primary) hypertension Status: Acute (6) Sleep apnea: Code(s): G47.30 - Sleep apnea, unspecified Status: Acute Subjective Date/time seen: 07/02/23 10:14 Interval history: This 42-year-old man presented with shortness of breath and hemoptysis. He has been diagnosed with bilateral pulmonary emboli and has been on anticoagulation. The patient has been hemodynamically stable, on room air. His clinical status has improved since admission to the hospital. He no longer has hemoptysis and his left pleuritic chest pain is significantly less. His chest CT showed in addition to bilateral pulmonary emboli left pleural effusion as well as infiltrate left lower lobe thought to be related to pulmonary infarct. He received treatment with antibiotics for possible coinfection. Currently he is on IV heparin as he is scheduled to undergo left thoracentesis to exclude empyema. Past medical history is significant for polycythemia vera, sleep disordered breathing on no treatment, history of sarcoidosis on treatment with MTX weekly. 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 Reportedly the diagnosis of sarcoidosis was made after some type of lung biopsy. Chest CT shows no evidence of mediastinal lymphadenopathy or lung abnormalities consistent with sarcoidosis. Review of Systems Review of Systems: All systems reviewed & are unremarkable except as noted in HPI and below Exam Narrative: GENERAL APPEARANCE: Well developed, well nourished, alert and cooperative, obese and appears to be in no acute distress while on room air SKIN: Inspection of the skin reveals no rashes, ulcerations or petechiae. HEENT: Sclerae anicteric and conjunctivae pink and moist. Extraocular movements were intact and pupils were equal, round, and reactive to light. Oral candidiasis rash NECK: Supple. There was no thyroid enlargement, and
--- NOTE | 2023-07-02 13:39 | PC.NURSE ---
Dr. Rosado requesting heparin drip to be restarted post thoracentesis. Per Pharmacy, to restart heparin drip after thoracentesis pt will need new PTT drawn and titration to be done from previous rate accordingly.
[2023-07-02 14:20] LABS: pH Pleural Fluid > 7.500 (7.210-7.500)
[2023-07-02] MEDS: HYDROcodone/acetaminophen (*CRX) 5-325 MG TABLET 1 TAB PO ×3 (14:31→23:51)
[2023-07-02 15:03] LABS: Partial Thromboplastin Time 31.7 Seconds (22.3-36.8)
[2023-07-02 15:17] LABS: Appearance Pleural Fluid Clear (Clear); Pleural fluid source Pleural fluid
[2023-07-02 15:20] LABS: Color Pleural Fluid Yellow (Colorless); Nucleated Cell Pleural Fluid 1935 /uL (0-1000)
[2023-07-02 15:22] LABS: RBC Pleural Fluid 5000 /uL (0-10000)
[2023-07-02 15:32] LABS: Lymphocytes Pleural Fluid 67 %; Macrophages Pleural Fluid 4 %; Mesothelial Cells Pleural Flui 18 %; Neutrophils Pleural Fluid 11 % (0-25)
[2023-07-02] MEDS: APIXABAN 5 MG TABLET 10 MG PO (18:21)
[2023-07-02] MEDS: NYSTATIN 100,000 UNITS/ML SUSP 5 ML ORAL.SUSP PO (20:55)
[2023-07-03] VITALS (11 sets, daily range): BP systolic 142–149; BP diastolic 76–79; PULSE 63–87; RESP 18–20; TEMP 36.1–36.7; O2SAT 98–99
[2023-07-03] MEDS: HYDROcodone/acetaminophen (*CRX) 5-325 MG TABLET 1 TAB PO ×4 (04:39→21:53)
[2023-07-03 09:03] LABS: Antithrombin III Activity 72 % normal (80-135)
[2023-07-03] MEDS: ASPIRIN 81 MG CHEWABLE TABLET PO (09:15)
[2023-07-03] MEDS: FOLIC ACID 1 MG TABLET PO (09:16)
[2023-07-03] MEDS: polyethylene glycoL 3350 17 GM POWD.PACK PO (09:16)
[2023-07-03] MEDS: HYDROXYCHLOROQUINE SULFATE 200 MG TABLET PO ×2 (09:16→17:21)
[2023-07-03] MEDS: BACLOFEN 10 MG TABLET PO ×2 (09:16→17:22)
[2023-07-03] MEDS: LORATADINE 10 MG TABLET PO (09:16)
[2023-07-03] MEDS: ANASTROZOLE (*CHEMO) 1 MG TABLET PO (09:16)
[2023-07-03] MEDS: CHOLECALCIFEROL 1,000 UNITS TABLET 2000 UNITS PO (09:16)
[2023-07-03] MEDS: PANTOPRAZOLE 40 MG TABLET PO ×2 (09:16→17:22)
[2023-07-03] MEDS: ASCORBIC ACID 500 MG TABLET 1000 MG PO (09:16)
[2023-07-03] MEDS: NYSTATIN 100,000 UNITS/ML SUSP 5 ML ORAL.SUSP PO ×4 (09:16→20:53)
[2023-07-03] MEDS: carvediloL 25 MG TABLET PO ×2 (09:19→20:52)
[2023-07-03] MEDS: APIXABAN 5 MG TABLET 10 MG PO ×2 (10:14→20:52)
--- NOTE | 2023-07-03 10:19 | PCNWS ---
Weekly nutritional screen. Patient is tolerating current diet with adequate intake. No weight loss reported. No nutritional needs at this time.
--- NOTE | 2023-07-03 10:36 | PM.IMPN ---
Progress Note: A&P Assessment and Plan (1) Acute pulmonary embolism: Qualifiers: Acute cor pulmonale presence: without acute cor pulmonale Pulmonary embolism type: unspecified Qualified Code(s): I26.99 - Other pulmonary embolism without acute cor pulmonale Code(s): I26.99 - Other pulmonary embolism without acute cor pulmonale Status: Acute (2) Pulmonary embolism with infarction: Code(s): I26.99 - Other pulmonary embolism without acute cor pulmonale Status: Acute (3) Essential hypertension: Code(s): I10 - Essential (primary) hypertension Status: Acute Plan 42-year-old gentleman presented with left-sided chest pain. Started having bloating sensation and hurts with deep breaths. Pain in the left lower quadrant not improved by anything. Associated episode of coughing with episode of bloody sputum. ED evaluation vitals were stable laboratory studies show WBC count of 14.6 electrolytes within normal limit lactic was normal. Troponin negative. Procalcitonin 0.1. Urinalysis with no evidence of UTI. CTA chest abdomen pelvis was performed which showed Multiple fairly extensive pulmonary emboli bilaterally no evidence of right heart strain. Associated prominent pulmonary infarct in the left lower lobe. Small left pleural effusions. No significant finding in the abdominal or pelvis. Patient started on heparin drip. Thrombophilia workup. Venous duplex negative for DVT. Echocardiogram unremarkable with no evidence of right ventricular pressure overload. Switched to Eliquis. Thrombosis panel pending Fever spike 06/26/2023: Blood cultures obtained. Could be from pulmonary infarction. With hypotension/presyncope started on broad-spectrum. CT chest with worsening left pleural effusion. Initiated vancomycin ceftriaxone and azithromycin. MRSA negative. Vancomycin switched to oral antibiotics today. Intermittent mild fever persist. Chest x-ray repeated with the worsening left-sided pleural effusion. Discussed thoracentesis with the patient. Agreeable and will order for IR diagnostic tap. 06/30: will hold Eliquis today, plans thoracentesis tomorrow, consult director of rehabilitation and wellness for evaluation treatment director of rehabilitation and wellness recommend to start heparin for bridging while holding Eliquis today tomorrow, will resume Eliquis if stable under thoracentesis 07/01: continue heparin drip per director of rehabilitation and wellness recommendation, plans thoracentesis today. patient denies black emesis, hematuria, hemoptysis 07/02, pending pleural fluid analysis, patient has no shortness breast, no O2 desaturation, continue Eliquis p.o., patient has no active bleeding Hypertension Generalized anxiety disorder Sarcoidosis on methotrexate and hydroxychloroquine History of polycythemia gets phlebotomy regularly. History of MTHFR gene mutation Migraine DAMIÁN does not wear CPAP DVT prophylaxis heparin drip switched to Eliquis now Subjective Date/time seen: 07/03/23 10:36 Interval history: Patient has no new issue even overnight, underwent thoracentesis yesterday,patient denies chest pain, hemoptysis, but has some left chest discomfort with deep breath, patient denies nausea vomiting black stool, Exam Narrative: GENERAL: Well-appearing, well-nourished, and in no acute distress. HEAD: Normocephalic, atraumatic. EYES: PERRLA and EOMI. ENT: Nares clear, no rhinorrhea or epistaxis.? Mucous membranes moist. NECK: Supple. CHEST: Diminished breath sound on left side, No respiratory distress. HEART: Regular rate and rhythm.? No murmur heard.? Normal peripheral pulses. ABDOMEN: Soft,? Tenderness palpation left lower quadrant, nondistended, normal active bowel sounds. EXTREMITIES: Normal range of motion.? No edema. SKIN: Warm, dry, no rash. NEURO: No focal deficits.? Alert and oriented x3. PSYCH: Normal mood and affect Objective Data Vital Signs Vital Signs: Vital Signs - 24 hr 07/02/23 12:00 07/02/23 16:00 07/02/23 20:00 Temp
--- NOTE | 2023-07-03 10:44 | PM.PNPUL ---
Progress Note: A&P Assessment and Plan (1) Acute pulmonary embolism: Qualifiers: Acute cor pulmonale presence: without acute cor pulmonale Pulmonary embolism type: unspecified Qualified Code(s): I26.99 - Other pulmonary embolism without acute cor pulmonale Code(s): I26.99 - Other pulmonary embolism without acute cor pulmonale Status: Acute Assessment and Plan: Patient with a history of polycythemia vera status post phlebotomy on 06/23/2023, obesity, positive serologies for lupus but later diagnosed with sarcoidosis on methotrexate and hydroxychloroquine by rheumatology Dr Worley and now acute pulmonary embolism with left lower lobe pulmonary infarct and left pleural effusion. Patient is hemodynamically stable, no evidence of right heart strain, lower extremity Dopplers negative, on room air oxygen and is fever free for the last 48 hours. Overall the patient has clinically improved but remains with left-sided pleuritic chest pain, fullness of the chest. Following a thoracentesis yesterday there seems to be increasing left pleuritic chest pain. The patient underwent stat chest x-ray this a.m. that showed no new changes. Pleural fluid analysis showed that pH is not indicative of empyema. Patient is on analgesics for pain. It appears as though the patient has developed severe pleuritic inflammation related to lung infarct. Plan: Continue with current regimen, pain control with current medications, may consider oral prednisone if pleuritic chest pain not controlled with current analgesic. (2) Pulmonary embolism with infarction: Code(s): I26.99 - Other pulmonary embolism without acute cor pulmonale Status: Acute (3) Obese: Qualifiers: Obesity type: due to excess calories Obesity classification: adult class 2 (BMI 35 - 39.9) Serious obesity comorbidity presence: with serious comorbidity Body mass index: BMI 38.0-38.9 Qualified Code(s): E66.01 - Morbid (severe) obesity due to excess calories; Z68.38 - Body mass index [BMI] 38.0-38.9, adult Code(s): E66.9 - Obesity, unspecified Status: Acute (4) Polycythemia: Code(s): D75.1 - Secondary polycythemia Status: Acute (5) HTN (hypertension): Qualifiers: Hypertension type: primary hypertension Qualified Code(s): I10 - Essential (primary) hypertension Code(s): I10 - Essential (primary) hypertension Status: Acute (6) Sleep apnea: Code(s): G47.30 - Sleep apnea, unspecified Status: Acute Subjective Date/time seen: 07/03/23 10:44 Interval history: Patient underwent left thoracentesis yesterday. He continues to have left pleuritic chest pain probably worse today. He has no fever chills hemoptysis. He has been using low-flow oxygen via nasal cannula. Unable to perform incentive spirometry due to pleuritic chest pain. Review of Systems Review of Systems: All systems reviewed & are unremarkable except as noted in HPI and below (HPI and below) Exam Narrative: GENERAL APPEARANCE: Well developed, well nourished, alert and cooperative, obese and appears to be in no acute distress while on room air SKIN: Inspection of the skin reveals no rashes, ulcerations or petechiae. HEENT: Sclerae anicteric and conjunctivae pink and moist. Extraocular movements were intact and pupils were equal, round, and reactive to light. Oral candidiasis rash NECK: Supple. There was no thyroid enlargement, and no tenderness, or masses were felt. CHEST: Normal AP diameter and normal contour without any kyphoscoliosis. LUNGS: Decreased breath sounds at the left base posteriorly no wheezing CARDIAC: There was a regular rate and rhythm without any murmurs, gallops, rubs. ABDOMEN: Soft and nontender with normal bowel sounds. There was no organomegaly. LYMPH NODES: No lymphadenopathy was appreciated in the neck. EXTREMITIES: No cyanosis, clubbing or edema. NEUROLOGIC: Alert and oriented x 3. Normal affect.
[2023-07-03 11:01] LABS: Alanine Aminotransferase 79 U/L (6-50); Albumin Level 3.7 g/dL (3.5-5.1); Alkaline Phosphatase 67 U/L (38-126); Anion Gap 4 mmol/L (4-12); Aspartate Amino Transferase 33 U/L (17-59); Bilirubin,Total 0.5 mg/dL (0.2-1.3); Blood Urea Nitrogen 10 mg/dL (9-20); Calcium 8.7 mg/dL (8.4-10.2); Carbon Dioxide 26 mmol/L (22-30); Chloride 108 mmol/L (98-107); Estimated CRCL calculation 107 ml/min; Estimated Glomerular Filt Rate > 60; Glucose 99 mg/dL (65-110); Potassium 4.2 mmol/L (3.4-5.0); Sodium 138 mmol/L (137-145)
[2023-07-03] MEDS: SODIUM CHLORIDE NASAL GEL 14.1 GM 1 APPLIC NASAL (21:16)
[2023-07-04] VITALS (8 sets, daily range): BP systolic 139–158; BP diastolic 74–88; PULSE 73–87; RESP 20; TEMP 36.1–36.3; O2SAT 98–99
[2023-07-04 07:58] LABS: Protein S Antigen, Free 145 % normal (57-171)
[2023-07-04] MEDS: ASPIRIN 81 MG CHEWABLE TABLET PO (08:44)
[2023-07-04] MEDS: NYSTATIN 100,000 UNITS/ML SUSP 5 ML ORAL.SUSP PO (08:44)
[2023-07-04] MEDS: FOLIC ACID 1 MG TABLET PO (08:45)
[2023-07-04] MEDS: carvediloL 25 MG TABLET PO (08:45)
[2023-07-04] MEDS: PANTOPRAZOLE 40 MG TABLET PO (08:45)
[2023-07-04] MEDS: CHOLECALCIFEROL 1,000 UNITS TABLET 2000 UNITS PO (08:45)
[2023-07-04] MEDS: APIXABAN 5 MG TABLET 10 MG PO (08:45)
[2023-07-04] MEDS: BACLOFEN 10 MG TABLET PO (08:45)
[2023-07-04] MEDS: HYDROXYCHLOROQUINE SULFATE 200 MG TABLET PO (08:45)
[2023-07-04] MEDS: ASCORBIC ACID 500 MG TABLET 1000 MG PO (08:45)
[2023-07-04] MEDS: LORATADINE 10 MG TABLET PO (08:45)
--- NOTE | 2023-07-04 14:43 | PM.PNPUL ---
Progress Note: A&P Assessment and Plan (1) Acute pulmonary embolism: Qualifiers: Acute cor pulmonale presence: without acute cor pulmonale Pulmonary embolism type: unspecified Qualified Code(s): I26.99 - Other pulmonary embolism without acute cor pulmonale Code(s): I26.99 - Other pulmonary embolism without acute cor pulmonale Status: Acute Assessment and Plan: Patient with a history of polycythemia vera status post phlebotomy on 06/23/2023, obesity, positive serologies for lupus but later diagnosed with sarcoidosis on methotrexate and hydroxychloroquine by rheumatology Dr Worley and now acute pulmonary embolism with left lower lobe pulmonary infarct and left pleural effusion. Patient is hemodynamically stable, no evidence of right heart strain, lower extremity Dopplers negative, on room air oxygen and is fever free for the last 72 hours. Patient continued to have pleuritic chest pain for a number of days but since last p.m. that the pain is significantly less. Recent chest x-ray showed residual left pleural effusion on left along with lung infiltrate which is due to lung infarct. Patient underwent thoracentesis and pleural fluid analysis showed mostly lymphocytic pleural effusion. PH not indicative of empyema. Full analysis results not out yet. Plan: Okay to discharge patient home. The patient will continue with a Eliquis 10 mg q.12 hours for today and tomorrow. Afterwards he will continue with Eliquis 5 mg q.12 hours. As this episode of pulmonary embolism is unprovoked patient needs to remain on the direct anticoagulant for a long time. I just indicated the patient that he needs to continue with Eliquis 5 mg acute viral hours for low time as there was no precipitating cause for his pulmonary embolism. Patient has other lung issues such as sarcoidosis has been under the care of a oil heat technician. He plans to follow-up with his oil heat technician regarding management of anticoagulation/pulmonary embolism. At this point we will sign off please call with any questions. (2) Pulmonary embolism with infarction: Code(s): I26.99 - Other pulmonary embolism without acute cor pulmonale Status: Acute (3) Obese: Qualifiers: Obesity type: due to excess calories Obesity classification: adult class 2 (BMI 35 - 39.9) Serious obesity comorbidity presence: with serious comorbidity Body mass index: BMI 38.0-38.9 Qualified Code(s): E66.01 - Morbid (severe) obesity due to excess calories; Z68.38 - Body mass index [BMI] 38.0-38.9, adult Code(s): E66.9 - Obesity, unspecified Status: Acute (4) Sarcoidosis: Code(s): D86.9 - Sarcoidosis, unspecified Status: Acute (5) Polycythemia: Code(s): D75.1 - Secondary polycythemia Status: Acute (6) Sleep apnea: Code(s): G47.30 - Sleep apnea, unspecified Status: Acute Subjective Date/time seen: 07/04/23 14:43 Interval history: Patient doing better today. His left pleuritic pain has significantly improved. Currently on room air. Eager to go home Review of Systems Review of Systems: All systems reviewed & are unremarkable except as noted in HPI and below (HPI and below) Objective Data Vital Signs Vital Signs: Vital Signs - 24 hr 07/03/23 16:00 07/03/23 20:52 07/03/23 21:46 Temperature 36.1 C L Pulse Rate 79 78 74 Respiratory Rate 20 Blood Pressure 149/79 H Pulse Oximetry 99 Oxygen Delivery 07/03/23 20:00 07/03/23 20:00 07/04/23 00:00 Temperature Pulse Rate 85 76 Respiratory Rate Blood Pressure Pulse Oximetry Oxygen Delivery Room Air 07/04/23 04:00 07/04/23 06:00 07/04/23 08:45 Temperature 36.1 C L Pulse Rate 75 74 73 Respiratory Rate 20 Blood Pressure 158/88 H Pulse Oximetry 99 Oxygen Delivery 07/04/23 08:00 07/04/23 12:00 Temperature Pulse Rate 84 82 Respiratory Rate Blood Pressure Pulse Oximetry Oxygen Delivery Inta
--- NOTE | 2023-07-04 18:03 | PM.DS ---
DS: Admitting Diagnosis Discharge Date July 04, 2023 Admitting Diagnosis Chest pain and hemoptysis DS: Discharge Diagnosis Discharge Diagnosis (1) Sleep apnea: Code(s): G47.30 - Sleep apnea, unspecified Status: Acute (2) Acute pulmonary embolism: Qualifiers: Acute cor pulmonale presence: without acute cor pulmonale Pulmonary embolism type: unspecified Qualified Code(s): I26.99 - Other pulmonary embolism without acute cor pulmonale Code(s): I26.99 - Other pulmonary embolism without acute cor pulmonale Status: Acute (3) Pulmonary embolism with infarction: Code(s): I26.99 - Other pulmonary embolism without acute cor pulmonale Status: Acute DS: Summary Hospital Course Hospital Course: 42-year-old male with past medical history polycythemia vera status post phlebotomy on 06/23/2023, obesity, 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 Worley, DAMIÁN not currently on CPAP due to noncompliance, hypertension, GERD presents with exertional dyspnea along with fevers chills hemoptysis and left-sided abdominal/chest pain. The patient is found to have extensive pulmonary emboli bilaterally with no evidence of heart strain. He was initially started on heparin GTT and then switch to Eliquis 10 mg p.o. b.i.d. lower extremity Dopplers negative for DVT. The patient has been on room air and afebrile for 72 hours therefore stable for discharge to home. Due to left pleural effusion he underwent thoracentesis pleural fluid analysis demonstrates lymphocytic pleural effusion preliminary. PH not indicative of empyema. He will continue Eliquis 10 mg p.o. b.i.d. for 3 more doses and then on July 05 in the a.m. start Eliquis 5 mg p.o. b.i.d.. This is on provoked PE so he will need to follow up for continue management/anticoagulation. He will be following with his director learning and development and diagnostic tech on these issues as he has establish care are ready. Adverse effects, risks, benefits discussed with the patient and he agrees and understands to the above plan. On day of discharge he has diminished lung sounds at the left lower base likely there is residual pleural effusion but again he is breathing well on room air and his hemoptysis has resolved. Patient knows to return to the ER if he has worsening or returning symptoms. Patient was full code during the admission. Time Spent with Patient Time attestation: Total time spent providing and/or coordinating discharge services: Exam Const: General: comfortable and no acute distress Other: A&O x4 Eyes: Pupils: Equal, round and reactive pupils present Neck: Neck: supple Resp: Effort & Inspection: normal respiratory effort Auscultation: diminished lung sounds (Left lower lung base) Cardio: Rate: regular rate Rhythm: regular rhythm GI: GI Palp: Yes Soft to palpation and No Tenderness to palpation present (GI) Extrem: General: no edema DS: Data Data Completed and Pending Labs on day of discharge: Labs from last 24 hours 06/26/23 12:16 Free Protein S Antigen 145 Preliminary micro results at discharge 07/02/23 13:41 Anaerobic Culture - Preliminary Pleural Fluid Aerobic Culture - Preliminary 07/02/23 13:41 Fungal Culture - Preliminary Pleural Fluid Discharge Plan Discharge Attending physician on discharge: Melanie Britt Consulting providers: Morris Dorsey Discharging Clinician: Melanie Britt Patient Disposition: Home, Self-Care Activity: june shower Diet: as tolerated Patient Instructions: Antibiotic Form, Apixaban (By mouth), How to Stop Smoking (DC) Stand Alone Forms: General Discharge Information, Work/School Release IP Follow-up/Referrals: Lena Wilson APRN [Primary Care Provider] - 2 Weeks Discharge Medications: New Eliquis 5 mg Tablet 10 mg PO Q12HR Qty: 6 0RF Rx Instructions: Take 2 tabs by mouth starting on the evening of June
[2023-07-08 13:27] LABS: Factor V Leiden Mutation NEGATIVE
[2023-07-09 06:43] LABS: Albumin Pleural Fluid 2.2 g/dL; Amylase, Pleural Fluid 10 U/L; Glucose Pleural Fluid 81 mg/dL; LDH Pleural Fluid 331 U/L; Total Protein Pleural Fluid 4.2 g/dL
== END 2023-07-04 18:21 | disposition home or self-care (01) | DRG 176 ==
LOC: ANHED 06:26 → ANHIMU 06:31 → ANHICU 06-29 08:27 → ANH3MED 06-29 23:06
PROVIDERS: Hospitalist; Internal Medicine; Internal Medicine Pulmonary Disease; Physician Assistant; Admitting Provider Internal Medicine; Emergency Provider Emergency Medicine; PCP Nurse Practitioner Family; Visit Provider General Practice
DX: I26.99 Other pulmonary embolism without acute cor pulmonale (principal); E72.12 Methylenetetrahydrofolate reductase deficiency; J90 Pleural effusion, not elsewhere classified; I10 Essential (primary) hypertension; D75.1 Secondary polycythemia; D86.9 Sarcoidosis, unspecified; I95.9 Hypotension, unspecified; R55 Syncope and collapse; G47.33 Obstructive sleep apnea (adult) (pediatric); E66.01 Morbid (severe) obesity due to excess calories; F41.1 Generalized anxiety disorder; F17.210 Nicotine dependence, cigarettes, uncomplicated; Z79.631 Long term (current) use of antimetabolite agent; Z79.82 Long term (current) use of aspirin
CPT/HCPCS: 32555; 36415; 71045; 71275; 74174; 74177; 80053; 81003; 81240; 81241; 82042; 82150; 82945; 82948; 83605; 83615; 83690; 83735; 83880; 83986; 84145; 84155; 84157; 84311; 84478; 84484; 85025; 85301; 85303; 85306; 85384; 85610; 85730; 87040; 87070; 87075; 87102; 87205; 87206; 87641; 89051; 93005; 93306; 93970; 96361; 96374; 96375; 96376; 99285; A9270; C9113; G0378; J0456; J0696; J1644; J2270; J2405; J3370; J7030; Q9967

== ENCOUNTER 2023-07-22 14:19 | Emergency (ER) | payer BC, SELFPAY ==
--- NOTE | ~2023-07-22 | CT_ITS ---
EXAMINATION: CTA brain carotid DATE: 07/22/2023 16:48 INDICATION: Headache. Dizziness. TECHNIQUE: Computed tomographic angiography (CTA) of the head was performed with 100 mL Omnipaque-350 intravenous contrast. CTA of the neck was performed with intravenous contrast. Automated exposure co ntrol and iterative reconstruction technique were employed. The dose-length product was 1258.94 mGy-c m. Maximum intensity projection and volume rendered 3D-reconstructions were created by the [facility] on a separate workstation. COMPARISON: Head CT 07/22/2023 FINDINGS: HEAD CTA: There is no intracranial hemorrhage, acute infarction, or abnormal intracranial mass lesion . The ventricles are normal in size. The orbits are normal. There is mild mucosal thickening in the p aranasal sinuses. The mastoid air cells are normal. Right vertebral artery is dominant. There is no s ignificant stenosis of basilar artery or the posterior cerebral arteries. The posterior communicating arteries are normal. There is no significant stenosis of intracranial internal carotid arteries or a nterior or middle cerebral arteries. Anterior communicating artery is normal. There is no aneurysm. NECK CTA: Calcified mediastinal lymph nodes are consistent with old granulomatous disease. There is a small left pleural effusion. There is no significant stenosis of the vertebral arteries. There is no significant plaque in the proximal internal carotid arteries. There is 0% stenosis of the proximal r ight internal carotid artery relative to normal distal artery lumen diameter (NASCET criteria). There is 0% stenosis of the proximal left internal carotid artery relative to normal distal artery lumen d iameter. There is mild cervical spondylosis. IMPRESSION: 1. Normal brain. No aneurysm or significant intracranial arterial stenosis. 2. 0% stenosis of the proximal internal carotid arteries relative to normal distal artery lumen diame ters (NASCET criteria). 3. Small left pleural effusion. Reviewed, dictated and finalized at location A. IMPRESSION: 1. Normal brain. No aneurysm or significant intracranial arterial stenosis. 2. 0% stenosis of the proximal internal carotid arteries relative to normal dis margaret artery lumen diameters (NASCET criteria). 3. Small left pleural effusion.
--- NOTE | ~2023-07-22 | XR_ITS ---
EXAMINATION: XR chest 2V Exam Date/Time: 07/22/2023 15:40 CDT HISTORY: dizziness Comparison: 07/03/2023. RESULT: Lines, tubes, and devices: None. Lungs and pleura: Improved aeration of the right lung base, with minimal residual subsegmental airsp quinten disease. Persistent mild left costophrenic angle blunting. Granulomatous calcification. Cardiomediastinal silhouette: Stable. Other: No acute osseous or upper abdominal finding. IMPRESSION: Improved left basilar aeration with minimal residual subsegmental atelectasis/consolidation. Persiste nt small pleural effusion. Reviewed, dictated and finalized at location K. IMPRESSION: Improved left basilar aeration with minimal residual subsegmental atelectasis/c onsolidation. Persistent small pleural effusion.
--- NOTE | ~2023-07-22 | CT_ITS ---
EXAMINATION: CT brain wo con DATE: 07/22/2023 15:32 INDICATION: Dizziness. Headache. TECHNIQUE: Computed tomography (CT) of the head was performed without intravenous contrast. The mA wa s adjusted according to patient size. Iterative reconstruction technique was employed. The dose-lengt h product was 605.33 mGy-cm. COMPARISON: None FINDINGS: There is no intracranial hemorrhage, acute infarction, or abnormal intracranial mass lesion . The ventricles are normal in size. The orbits are normal. There is mild mucosal thickening in the e thmoid sinuses. The mastoid air cells are normal. IMPRESSION: 1. Normal brain. Reviewed, dictated and finalized at location A. IMPRESSION: 1. Normal brain.
[2023-07-22 14:44] VITALS: BP 146/83; PULSE 79; RESP 18; TEMP 36.7; O2SAT 96
--- NOTE | 2023-07-22 15:12 | ECG_ITS ---
[facility] [address] Test Date: 2023-07-22 Pat Name: Amber Green Department: Room: Gender: M Director Search: : 1980 Requested By: Germaine Jain Order Number: [id number] Marta MD: Avery Cardenas D.O. Measurements Intervals [place] Rate: 72 P: 57 MO: 161 QRS: 32 QRSD: 101 T: 29 QT: 356 QTc: 392 Interpretive Statements SINUS RHYTHM BASELINE ARTIFACT- I, III, AVL, V2 NORMAL ECG No previous ECG available for comparison Electronically Signed On 07-23-2023 15:02:55 CDT by Avery Cardenas D.O.
[2023-07-22 15:26] LABS: Basophils Percent Auto 0.6 % (0.2-1.2); Eosinophils Absolute Auto 0.3 K/mm3 (0-0.3); Eosinophils Percent Auto 4.6 % (0-4.4); Hematocrit 46.2 % (42.0-52.0); Immature Granulocyte Absolute 0.03 K/mm3 (0.00-0.031); Immature Granulocyte Percent A 0.4 % (0-0.5); Lymphocytes Percent Auto 27.4 % (18.3-44.2); Mean Corpuscular HGB Conc 30.3 g/dl (32-36); Mean Corpuscular Hemoglobin 24.4 pg (26-34); Mean Corpuscular Volume 80.6 fl (80-100); Mean Platelet Volume 9.8 fl (7.4-10.4); Monocytes Absolute Auto 0.6 K/mm3 (0.1-0.6); Monocytes Percent Auto 8.8 % (2.6-8.5); Neutrophils Percent Auto 58.2 % (45.5-73.1); Platelet Count Result 209 k/mm3 (150-375); Red Blood Count 5.73 M/mm3 (4.6-6.20); Red Cell Distribution Width 17.5 % (11.5-14.5); White Blood Count 6.9 K/mm3 (4.5-10.0)
--- NOTE | 2023-07-22 15:33 | ED.GENADULT ---
HPI - General Adult General Chief complaint: Unspecified Stated complaint: having trouble swallowing Time Seen by Provider: 07/22/23 14:57 Source: patient Mode of arrival: ambulatory Limitations: no limitations History of Present Illness HPI narrative: This is a 43 year old male that presents to the ER for feelings of swelling in his throat. Reports the last couple of days he has felt lightheaded and had head pressure. Reports he thought it was the muscle relaxer he had been taking. He stopped taking this and continued to experience these symptoms. Reports today he also started to feel some throat discomfort when swallowing and felt like his throat was swollen which prompted him to be seen. No known exposures. Denies fever, chest pain, shortness of breath, numbness or weakness. Related Data Home Medications Medication Instructions Recorded Confirmed aspirin 81 mg capsule 81 mg PO DAILY 12/19/21 06/26/23 anastrozole 1 mg tablet 1 mg PO 3XW 07/12/22 06/26/23 folic acid 1 mg tablet 1 mg PO DAILY 07/12/22 06/26/23 hydroxychloroquine 200 mg tablet 200 mg PO BID 07/12/22 06/26/23 methotrexate sodium 2.5 mg tablet 25 mg PO WEEKLY 07/12/22 06/26/23 omeprazole 40 mg capsule,delayed 20 mg PO BID 07/12/22 06/26/23 release ascorbic acid (vitamin C) 1,000 mg 1 g PO DAILY 06/18/23 06/26/23 tablet baclofen 10 mg tablet 10 mg PO BID 06/18/23 06/26/23 carvedilol 12.5 mg tablet 25 mg PO BID 06/18/23 06/26/23 cholecalciferol (vitamin D3) 50 50 mcg PO DAILY 06/18/23 06/26/23 mcg (2,000 unit) capsule clomiphene citrate 50 mg tablet 25 mg PO DAILY 06/18/23 06/26/23 (Clomid) hydrochlorothiazide 12.5 mg tablet 12.5 mg PO DAILY 06/18/23 06/26/23 prednisone 5 mg tablet 20 mg PO USEASDIRECTD PRN 06/18/23 06/26/23 .sarcoidosis tadalafil 20 mg tablet 20 mg PO DAILY PRN Sexual Activity 06/18/23 06/26/23 beetroot BYMOUTH 07/09/23 cinnamon bark extract 500 mg tablet 1,000 mg PO DAILY 07/09/23 imiquimod 5 % topical cream packet 1 applic topical 2XW 07/09/23 mupirocin 2 % topical ointment 1 applic topical BID PRN 07/09/23 omega 2-cef-cvb-fish oil 1,200 mg cap PO 07/09/23 (144 mg-216 mg) capsule (Fish Oil) tramadol 50 mg tablet 50 mg PO Q6H PRN 07/09/23 zinc 11 mg BYMOUTH 07/09/23 Allergies Allergy/AdvReac Type Severity Reaction Status Date / Time lisinopril AdvReac Intermediate Swelling Verified 07/22/23 14:43 of Lip/Tongue/Throat losartan AdvReac Intermediate Swelling Verified 07/22/23 14:43 Review of Systems Review of Systems: CONSTITUTIONAL: Denies fever EYES: Denies visual changes CARDIOVASCULAR: Denies chest pain, or edema. RESPIRATORY: Denies dyspnea. NEUROLOGIC: Reports headache. Denies numbness, or weakness. All systems reviewed & are unremarkable except as noted in HPI and below PMFSH Past Medical History Medical History (Updated 07/22/23 @ 17:32 by Germaine Madsen PA-C) Fracture of thumb, right, closed Generalized anxiety disorder Migraine MTHFR gene mutation Polycythemia Sarcoidosis Vision abnormalities Wrist fracture, left Surgical History Surgical History H/O esophagogastroduodenoscopy History of lung biopsy [place] teeth removed Family History Family History Mother Family history of rheumatoid arthritis Diabetes mellitus Hypertension Father Malignant neoplasm of prostate Hypertension Heart disease Grandparent Cerebrovascular accident Cancer Social History Social History Social History: Patient is somewhat confident in filling out paperwork Smoking packs per day: 0.5 Smoking cigarettes per day: 10.0 Years smoked: 23 Smoking pack-years: 11.50 Smoking status: Former smoker Tobacco type: cigarettes Second hand tobacco smoke exposure: No Smoking end date: 06/22/23 Additional
[2023-07-22 15:35] LABS: Alanine Aminotransferase 57 U/L (6-50); Albumin Level 4.3 g/dL (3.5-5.1); Alkaline Phosphatase 106 U/L (38-126); Anion Gap 12 mmol/L (4-12); Aspartate Amino Transferase 39 U/L (17-59); Bilirubin,Total 0.5 mg/dL (0.2-1.3); Blood Urea Nitrogen 14 mg/dL (9-20); Calcium 9.1 mg/dL (8.4-10.2); Carbon Dioxide 26 mmol/L (22-30); Chloride 101 mmol/L (98-107); Estimated CRCL calculation 119 ml/min; Estimated Glomerular Filt Rate > 60; Glucose 115 mg/dL (65-110); Potassium 3.8 mmol/L (3.4-5.0); Sodium 139 mmol/L (137-145)
[2023-07-22 15:49] LABS: Strep Group A RT-PCR NOT DETECTED (Negative)
[2023-07-22 15:56] LABS: Troponin I < 0.012 ng/mL (0.000-0.034)
[2023-07-22 16:48] VITALS: BP 153/91; PULSE 84; RESP 16; O2SAT 98
[2023-07-22] MEDS: methylPREDNISolone SOD SUCC 125 MG VIAL IV PUSH (17:33)
== END 2023-07-22 17:59 | disposition home or self-care (01) ==
PROVIDERS: Emergency Provider Physician Assistant; PCP Nurse Practitioner Family
DX: R42 Dizziness and giddiness (principal); R07.0 Pain in throat; D86.9 Sarcoidosis, unspecified; Z87.891 Personal history of nicotine dependence; Z79.899 Other long term (current) drug therapy; Z79.82 Long term (current) use of aspirin
CPT/HCPCS: 36415; 70450; 70496; 70498; 71046; 80053; 84484; 85025; 87651; 93005; 96374; 99284; J2919; Q9967

== ENCOUNTER 2023-10-01 19:19 | Emergency (ER) | payer BC, SELFPAY ==
--- NOTE | ~2023-10-01 | US_ITS ---
RIGHT LOWER EXTREMITY VENOUS ULTRASOUND Ordering provider: Nadege Sultana PA-C History: . concern for DVT . Comparison: None. FINDINGS: --COMMON FEMORAL: Patent and free of thrombus. Normal compressibility, phasic flow and augmentation. --PROXIMAL SUPERFICIAL FEMORAL: Patent and free of thrombus. Normal compressibility, phasic flow and augmentation. --DISTAL SUPERFICIAL FEMORAL: Patent and free of thrombus. Normal compressibility, phasic flow and au gmentation. --POPLITEAL: Patent and free of thrombus. Normal compressibility, phasic flow and augmentation. --POSTERIOR TIBIAL: Patent and free of thrombus. Normal compressibility, phasic flow and augmentation . IMPRESSION: Negative right lower extremity venous US. No deep vein thrombosis. Reviewed, dictated and finalized at location A.
[2023-10-01 19:21] VITALS: BP 142/70; PULSE 69; RESP 13; TEMP 36.7; O2SAT 98
--- NOTE | 2023-10-01 19:31 | ED.LOWEXIN ---
HPI - Extremity Injury (Lower) General Chief Complaint: Extremity Injury, Lower Stated Complaint: right leg pain Time Seen by Provider: 10/01/23 19:27 History of Present Illness HPI Narrative: 43-year-old male with a history of hypertension, GERD, CAD presents to the emergency department with concerns for a blood clot in his right leg. Patient was diagnosed with a PE and June 2023 is on Eliquis. States today he began having sharp pain from his groin that radiated down into his knee and into his calf. States it is worse with walking and movement. Denies injury or trauma, swelling or erythema. He denies chest pain or shortness of breath, lightheadedness or dizziness. denies back pain. He does mention that he missed a dose of his Eliquis 2 nights ago. Related Data Home Medications Medication Instructions Recorded Confirmed aspirin 81 mg capsule 81 mg PO DAILY 12/19/21 08/07/23 omeprazole 40 mg capsule,delayed 20 mg PO BID 07/12/22 08/07/23 release ascorbic acid (vitamin C) 1,000 mg 1 g PO DAILY 06/18/23 08/07/23 tablet baclofen 10 mg tablet 10 mg PO BID 06/18/23 08/07/23 carvedilol 12.5 mg tablet 25 mg PO BID 06/18/23 08/07/23 cholecalciferol (vitamin D3) 50 50 mcg PO DAILY 06/18/23 08/07/23 mcg (2,000 unit) capsule hydrochlorothiazide 12.5 mg tablet 12.5 mg PO DAILY 06/18/23 08/07/23 prednisone 5 mg tablet 20 mg PO USEASDIRECTD PRN 06/18/23 08/07/23 .sarcoidosis tadalafil 20 mg tablet 20 mg PO DAILY PRN Sexual Activity 06/18/23 08/07/23 beetroot BYMOUTH 07/09/23 08/07/23 cinnamon bark extract 500 mg tablet 1,000 mg PO DAILY 07/09/23 08/07/23 imiquimod 5 % topical cream packet 1 applic topical 2XW 07/09/23 08/07/23 mupirocin 2 % topical ointment 1 applic topical BID PRN 07/09/23 08/07/23 omega 1-bsu-rkw-fish oil 1,200 mg cap PO 07/09/23 08/07/23 (144 mg-216 mg) capsule (Fish Oil) tramadol 50 mg tablet 50 mg PO Q6H PRN 07/09/23 08/07/23 zinc 11 mg BYMOUTH 07/09/23 08/07/23 hydroxychloroquine 200 mg tablet 200 mg PO DAILY 08/07/23 08/07/23 Allergies Allergy/AdvReac Type Severity Reaction Status Date / Time lisinopril AdvReac Intermediate Swelling Verified 10/01/23 19:53 of Lip/Tongue/Throat losartan AdvReac Intermediate Swelling Verified 10/01/23 19:53 Review of Systems Review of Systems: All systems reviewed & are unremarkable except as noted in HPI and below PMFSH Past Medical History Medical History Fracture of thumb, right, closed Generalized anxiety disorder Migraine MTHFR gene mutation Polycythemia Sarcoidosis Vision abnormalities Wrist fracture, left Surgical History Surgical History H/O esophagogastroduodenoscopy History of lung biopsy [place] teeth removed Family History Family History Mother Family history of rheumatoid arthritis Diabetes mellitus Hypertension Father Malignant neoplasm of prostate Hypertension Heart disease Grandparent Cerebrovascular accident Cancer Social History Social History Social History: Patient is somewhat confident in filling out paperwork Smoking packs per day: 0.5 Smoking cigarettes per day: 10.0 Years smoked: 23 Smoking pack-years: 11.50 Smoking status: Former smoker Tobacco type: cigarettes Second hand tobacco smoke exposure: No Smoking end date: 06/22/23 Additional smoking assessment comments: down to 1/2 ppd trying to quit Alcohol intake: current Drinks per week: 0 Alcohol use details: 1-2 per week Substance use: never Do You Feel Safe in your Home?: Yes Lack of Transportation: No Lack of Food: Never True Current Housing: Decline to Answer Concerned About Future Housing: Decline to Answer Difficulty Paying Gas/Electric Bills: Decline to Answer Difficulty Paying
[2023-10-01 19:48] VITALS: BP 130/63; PULSE 70; RESP 16; O2SAT 96
[2023-10-01 20:06] VITALS: BP 123/64; PULSE 71; RESP 16; O2SAT 96
== END 2023-10-01 20:06 | disposition home or self-care (01) ==
PROVIDERS: Emergency Provider Physician Assistant; PCP Nurse Practitioner Family
DX: M79.604 Pain in right leg (principal); D75.1 Secondary polycythemia; D86.9 Sarcoidosis, unspecified; F41.1 Generalized anxiety disorder; Z86.711 Personal history of pulmonary embolism; Z79.01 Long term (current) use of anticoagulants; Z79.82 Long term (current) use of aspirin; Z79.899 Other long term (current) drug therapy
CPT/HCPCS: 93971; 99284

== ENCOUNTER 2023-10-14 08:28 | Outpatient (CLI) | payer BC, SELFPAY ==
--- NOTE | ~2023-10-14 | CT_ITS ---
CTA chest PE protocol Ordering provider: Laura Carvalho APRN History: 43 years Male with . ACUTE PE . Comparison: None. Technique: CT angiogram chest was performed following timed intravenous injection of contrast. Thin s lice axial images and reformatted coronal images were obtained. Three dimensional reformatted images of the chest were also obtained using a [employer] workstation. . Automated exposure control and iterati ve reconstruction technique were employed. The dose-length product was 644.11 mGy-cm. 100 mL Omnipaqu e 350 was given IV. Findings: PULMONARY ARTERIES: No pulmonary embolus. VISUALIZED THORACIC INLET: Normal. MEDIASTINUM: Aorta/coronary arteries: The thoracic aorta is normal. Heart/other: The heart is not enlarged. Lymph nodes: No mediastinal or hilar adenopathy. LUNGS: Mild dependent atelectasis in the lingula and left lower lobe. Possible nodule measuring 1.5 cm. [address] mo [address] dose [address] follow-up is advised. . No infiltrates or effusions. No pneumothorax. VISUALIZED UPPER ABDOMEN: Lymph nodes seen anterior to the inferior vena cava slightly enlarged. Larg est measures 1.5 cm. Thickening in the lower esophagus suggestive of reflux esophagitis. Otherwise, t he visualized upper abdomen is normal. MUSCULOSKELETAL: Soft tissues: The superficial soft tissues are normal. Bones: Normal spine. IMPRESSION: 1. No pulmonary embolism. 2. No acute cardiopulmonary pathology. 3. Atelectasis in the left lower lobe and lingula. Nodule is not excluded. Three-month CT follow-up or PET scan is advised. 4. Lymph nodes seen anterior to the inferior vena cava. 5. Thickened lower esophagus suggestive of reflux esophagitis. Reviewed, dictated and finalized at location A. IMPRESSION: 1. No pulmonary embolism. 2. No acute cardiopulmonary pathology. 3. Atelectasis in the left lower lobe and lingula. Nodule is not excluded. Thr ee-month CT follow-up or PET scan is advised. 4. Lymph nodes seen anterior to the inferior vena cava. 5. Thickened lower esophagus suggestive of reflux esophagitis.
[2023-10-14 08:52] LABS: Estimated Glomerular Filt Rate > 60
== END 2023-10-14 08:29 | disposition home or self-care (01) ==
PROVIDERS: PCP Nurse Practitioner Family; Visit Provider Nurse Practitioner Family
DX: I26.99 Other pulmonary embolism without acute cor pulmonale (principal)
CPT/HCPCS: 71275; Q9967

== ENCOUNTER 2023-11-23 17:33 | Emergency (ER) | payer BC, SELFPAY ==
[2023-11-23 17:56] VITALS: BP 111/68; PULSE 73; RESP 18; TEMP 36.5; O2SAT 99
[2023-11-23 18:05] VITALS: BP 111/68; PULSE 73; RESP 18; TEMP 36.5; O2SAT 99
--- NOTE | 2023-11-23 18:10 | ED.EAR ---
HPI - Ear Problem General Chief complaint: Ear Stated complaint: Ear Pain Time Seen by Provider: 11/23/23 18:00 Source: patient Mode of arrival: ambulatory Limitations: no limitations History of Present Illness HPI Narrative: Tere is a 43-year-old male patient presenting to the clinic today with complaints of left ear pain. He reports that the ear pain started approximately 1 week ago however last night it got worse. He denies any URI symptoms, sore throat, or dental pain. No recent swimming. No fevers or chills. He has not taken anything for pain. Related Data Home Medications Medication Instructions Recorded Confirmed aspirin 81 mg capsule 81 mg PO DAILY 12/19/21 11/23/23 omeprazole 40 mg capsule,delayed 20 mg PO BID 07/12/22 11/04/23 release ascorbic acid (vitamin C) 1,000 mg 1 g PO DAILY 06/18/23 11/23/23 tablet carvedilol 12.5 mg tablet 25 mg PO BID 06/18/23 11/23/23 cholecalciferol (vitamin D3) 50 50 mcg PO DAILY 06/18/23 11/23/23 mcg (2,000 unit) capsule hydrochlorothiazide 12.5 mg tablet 12.5 mg PO DAILY 06/18/23 11/23/23 prednisone 5 mg tablet 20 mg PO USEASDIRECTD PRN 06/18/23 11/04/23 .sarcoidosis tadalafil 20 mg tablet 20 mg PO DAILY PRN Sexual Activity 06/18/23 11/04/23 cinnamon bark extract 500 mg tablet 1,000 mg PO DAILY 07/09/23 11/23/23 imiquimod 5 % topical cream packet 1 applic topical 2XW 07/09/23 11/04/23 mupirocin 2 % topical ointment 1 applic topical BID PRN Blood 07/09/23 11/04/23 Pressure omega 0-ixs-zfh-fish oil 1,200 mg 1 cap PO DAILY 07/09/23 11/04/23 (144 mg-216 mg) capsule (Fish Oil) hydroxychloroquine 200 mg tablet 200 mg PO DAILY 08/07/23 11/04/23 Allergies Allergy/AdvReac Type Severity Reaction Status Date / Time lisinopril AdvReac Intermediate Swelling Verified 11/23/23 17:51 of Lip/Tongue/Throat losartan AdvReac Intermediate Swelling Verified 11/23/23 17:51 Review of Systems Review of Systems: Pertinent positives per HPI. Patient denies any fever, chills, rash, headache, visual changes, dizziness, cough, runny nose, sore throat, shortness of breath, chest pain, palpitations, nausea, vomiting, diarrhea, constipation, abdominal pain, or any urinary issues. [facility] Past Medical History Medical History Fracture of thumb, right, closed Generalized anxiety disorder Migraine MTHFR gene mutation Polycythemia Sarcoidosis Vision abnormalities Wrist fracture, left Surgical History Surgical History H/O esophagogastroduodenoscopy History of lung biopsy [place] teeth removed Family History Family History Mother Family history of rheumatoid arthritis Diabetes mellitus Hypertension Father Malignant neoplasm of prostate Hypertension Heart disease Grandparent Cerebrovascular accident Cancer Social History Social History Social History: 11/04/23 declined SDOH Smoking packs per day: 0.5 Smoking cigarettes per day: 10.0 Years smoked: 23 Smoking pack-years: 11.50 Smoking status: Former smoker Tobacco type: cigarettes Second hand tobacco smoke exposure: No Smoking end date: 06/22/23 Additional smoking assessment comments: down to 1/2 ppd trying to quit Alcohol intake: current Drinks per week: 0 Alcohol use details: 1-2 per week Substance use: never Do You Feel Safe in your Home?: Yes Lack of Transportation: No Lack of Food: Never True Current Housing: Decline to Answer Concerned About Future Housing: Decline to Answer Difficulty Paying Gas/Electric Bills: Decline to Answer Difficulty Paying for Meds: Decline to Answer Currently Unemployed: Decline to Answer Education: High School Diploma/GED Difficulty w/ Childcare or Family Care: No Living arrangements: with family
== END 2023-11-23 18:15 | disposition home or self-care (01) ==
PROVIDERS: Emergency Provider Nurse Practitioner Family; PCP Nurse Practitioner Family
DX: H92.02 Otalgia, left ear (principal); E72.12 Methylenetetrahydrofolate reductase deficiency
CPT/HCPCS: 99211; G0463

== ENCOUNTER 2024-01-20 08:05 | Outpatient (CLI) | payer BC, SELFPAY ==
--- NOTE | ~2024-01-20 | CT_ITS ---
EXAMINATION:CT diagnostic chest w con DATE: 01/20/2024 08:39 INDICATION: Lung nodule. Polycythemia. TECHNIQUE: Computed tomography (CT) of the chest was performed with 75 mL Omnipaque 350 intravenous c ontrast. Automated exposure control and iterative reconstruction technique were employed. The dose-le ngth product (DLP) was 334.56 mGy-cm. COMPARISON: Chest CT 10/14/2023 FINDINGS: Calcified right lung nodules and calcified right hilar and mediastinal lymph nodes are cons istent with old granulomatous disease. There is mild atelectasis in left lower lobe and lingula. The nodular morphology of the atelectasis seen on the prior CT has resolved. No pleural effusion. The hea rt size is normal. No pericardial effusion. Calcifications in the spleen are consistent with old gran ulomatous disease. There is mild thoracic spondylosis. IMPRESSION: 1. Mild atelectasis in left lower lobe and lingula with interval improvement. Reviewed, dictated and finalized at location A. C T TECH
[2024-01-20 08:39] LABS: Estimated Glomerular Filt Rate > 60
== END 2024-01-20 08:06 | disposition home or self-care (01) ==
PROVIDERS: PCP Nurse Practitioner Family; Visit Provider Nurse Practitioner Family
DX: D75.1 Secondary polycythemia (principal); R91.1 Solitary pulmonary nodule; D68.59 Other primary thrombophilia; J98.11 Atelectasis; Z86.711 Personal history of pulmonary embolism
CPT/HCPCS: 71260; Q9967

== ENCOUNTER 2024-01-20 08:44 | Outpatient (CLI) | payer BC, SELFPAY ==
[2024-01-20 10:02] LABS: Anion Gap 5 mmol/L (4-12); Blood Urea Nitrogen 16 mg/dL (9-20); Carbon Dioxide 31 mmol/L (22-30); Chloride 103 mmol/L (98-107); Estimated Glomerular Filt Rate > 60; Glucose 90 mg/dL (65-110); Potassium 4.4 mmol/L (3.4-5.0); Sodium 139 mmol/L (137-145)
== END 2024-01-20 08:45 | disposition home or self-care (01) ==
PROVIDERS: Anesthesiology; PCP Nurse Practitioner Family; Visit Provider Surgery
DX: Z01.818 Encounter for other preprocedural examination (principal); K42.9 Umbilical hernia without obstruction or gangrene; Z79.899 Other long term (current) drug therapy
CPT/HCPCS: 36415; 80048; 86850; 86900; 86901

== ENCOUNTER 2024-01-26 02:56 | Day surgery (SDC) | payer BC, SELFPAY ==
[2024-01-15 09:38] VITALS: BMI 33.7
--- NOTE | 2024-01-15 09:39 | PC.NURSE ---
Addendum entered by Alfa Brito RN 01/15/24 09:54: Also stopping Zepbound 10 days before surgery. Original Note: Report to the Outpatient Waiting Room, entrance under the green pavilion located off [facility], at time _1000_ on date _[id number]_. Planned Procedure Time: _1200_.? Time changes happen often and if your time is changed the preop area will call you the afternoon before. - You and your visitor will be asked to self-screen and do not enter if you have any COVID symptoms. Please call surgeon if you need to reschedule. - A mask is optional within the hospital at this time. Patients may have clear liquids (water, carbonated beverages, clear teas, apple juice) until 3 hours prior to surgery with a maximum of 20 ounces. - No food from midnight until time of surgery and no smoking. This includes no chewing gum, candy or mints. Take only the following medications with a SIP of water on the morning of surgery: Carvidilol DO NOT STOP ANY OF YOUR OTHER PRESCRIPTION MEDICATIONS PRIOR TO SURGERY EXCEPT THE FOLLOWING Medications to discontinue per physician ___Vitamins and patient says is stopping Eliquis____ Date to take last lopw___[id number]____ Please no make-up, nail french, hairspray, perfume, deodorant, or body powder the day of surgery.? No jewelry (including any body piercings) or valuables the day of surgery, leave them at home.? Please take a shower or bath the night before, or the morning of, surgery with an antibacterial soap.? Wear comfortable, loose fitting clothing.? - Jewelry must be removed prior to entering the operating room.? Rings and piercings that are not removed may be cut off. - The hospital will not accept responsibility for valuables.? - Please leave all valuables, including medications, at home the day of surgery. If you are going home after surgery, a licensed pile driver operator must drive you home.? - NO public transportation without another adult if you receive anesthesia. - We recommend that an adult stay with you for 24 hours following discharge. - We also recommend that you do not drive, make important decision, drink alcoholic beverages, or take any drugs that were not prescribed by your health care provider for at least 24 hours after your discharge time. Follow any additional instructions given to you from your surgeon. Telephone instructions given to _Amber__and asked if any additional questions and then verbalized understanding. Patient advised to call surgeon office or pre surgery nurse liaison [phone] if any additional questions.
[2024-01-26] VITALS (20 sets, daily range): BP systolic 126–159; BP diastolic 64–91; PULSE 63–91; RESP 10–18; TEMP 36.1–36.7; O2SAT 94–100
[2024-01-26] MEDS: ACETAMINOPHEN 500 MG TABLET 1000 MG PO ×3 (10:39→23:40)
[2024-01-26] MEDS: LACTATED RINGERS 1,000 ML 30 ML IV CONT ×3 (10:40→16:00)
[2024-01-26] MEDS: ENOXAPARIN 40 MG/0.4 ML SYRINGE SUB-Q (11:04)
--- NOTE | 2024-01-26 12:00 | WPDHPUPDATE1 ---
History and Physical Update Update Date/Time: 01/26/24 12:00 History and Physical has been reviewed, including an updated exam of the patient. There are NO changes in the patient's condition. Risks, benefits, and alternatives have been discussed and questions answered. Patient agrees to proceed with procedure.
--- NOTE | 2024-01-26 12:00 | PM.IMHP ---
H&P: HPI History of Present Illness Date/Time: 01/26/24 12:00 Chief Complaint: Umbilical hernia Narrative: This is a 43-year-old man who presents for umbilical hernia repair. He reports no changes since last seen in the office. Review of Systems Review of Systems: All systems reviewed & are unremarkable except as noted in HPI and below Constitutional: Constitutional: Denies chills, Denies fever(s), Denies headache(s) and Denies weight loss Eyes: Eyes: Denies change in vision ENT: Denies dizziness, Denies headache(s), Denies neck mass and Denies throat swelling Cardiovascular: Cardiovascular: Denies chest pain, Denies lightheadedness and Denies dyspnea Respiratory: Respiratory: Denies cough, Denies dyspnea and Denies wheezing Gastrointestinal: Gastrointestinal: Denies abdominal pain, Denies change in bowel habits, Denies nausea and Denies vomiting Genitourinary: Genitourinary: Denies hematuria and Denies dysuria Musculoskeletal: Musculoskeletal: Reports as per HPI Integumentary/Breasts: Skin/Breast: Reports as per HPI Neurologic: Denies dizziness and Denies headache(s) Allergic/Immunologic: Allergic/Immunologic: Denies throat swelling and Denies wheezing PMF Past Medical History Medical History Fracture of thumb, right, closed Generalized anxiety disorder Migraine MTHFR gene mutation Polycythemia Sarcoidosis Vision abnormalities Wrist fracture, left Surgical History Surgical History H/O esophagogastroduodenoscopy History of lung biopsy [place] teeth removed Family History Family History Mother Family history of rheumatoid arthritis Diabetes mellitus Hypertension Father Malignant neoplasm of prostate Hypertension Heart disease Grandparent Cerebrovascular accident Cancer Social History Social History Social History: 11/04/23 declined SDOH Smoking packs per day: 1 Smoking cigarettes per day: 20.0 Years smoked: 21 Smoking pack-years: 21.00 Smoking status: Former smoker Tobacco type: cigarettes Second hand tobacco smoke exposure: No Smoking end date: 06/27/23 Additional smoking assessment comments: down to 1/2 ppd trying to quit Alcohol intake: current Drinks per week: 1 Alcohol use details: 1-2 per week Substance use: never Do You Feel Safe in your Home?: Yes Lack of Transportation: No Lack of Food: Never True Current Housing: Decline to Answer Concerned About Future Housing: Decline to Answer Difficulty Paying Gas/Electric Bills: Decline to Answer Difficulty Paying for Meds: Decline to Answer Currently Unemployed: Decline to Answer Education: High School Diploma/GED Difficulty w/ Childcare or Family Care: No Living arrangements: with family Occupation/Education: occupation 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[employer] Gender identity (if verbalized by the patient): Male Spiritual care concerns: No Agree to blood products: Yes Meds Home Medications and Allergies Home Medications Medication Instructions Recorded Confirmed Type omeprazole 40 mg capsule,delayed 20 mg PO BID 07/12/22 01/26/24 History release ascorbic acid (vitamin C) 1,000 mg 1 g PO DAILY 06/18/23 01/26/24 History tablet carvedilol 12.5 mg tablet 25 mg PO BID 06/18/23 01/26/24 History cholecalciferol (vitamin D3) 50 50 mcg PO DAILY 06/18/23 01/26/24 History mcg (2,000 unit) capsule hydrochlorothiazide 12.5 mg tablet 12.5 mg PO DAILY 06/18/23 01/26/24 History tadalafil 20 mg tablet 20 mg PO DAILY PRN Sexual Activity 06/18/23 01/15/24 History apixaban 5 mg tablet (Eliquis) 5 mg PO Q12HR #60 tabs 07/04/23 01/26/24 Rx omega 0-uup-nzg-fish oil 1,200 mg 1 cap PO DAILY 07/09/23 01/26/24 History (144 mg-216 mg) capsule (Fish Oil) hydroxychloroquine 200 mg tablet 200 mg PO DAILY 08/07/23 01/26/24 History tirzepatide (weight loss) 2.5 2.5 mg (0.5 mL) subcut WEEKLY #2 mL 01/06/24 01/26/24 Rx mg/0.5 mL subcutaneous pen injector (Zepbound) tirzepatide (weight loss) 5 mg/0.5 5 mg (0.5 mL) subcut WEEKLY #2 mL 01/06/24 01/26/24 Rx mL subcutaneous pen injector (Zepbound) Allergies Allergy/AdvReac Type Severity Reaction Status Date / Time lisinopril AdvReac Intermediate Swelling Verified 01/15/24 09:30 of Lip/Tongue/Throat losartan AdvReac Intermediate Swelling Verified 01/15/24 09:30 Vital Signs Vital Signs - 24 hr 01/26/24 10:09 Temperature 98.0 F Pulse Rate 72 Respiratory Rate 16 Blood Pressure 133/69 Pulse Oximetry 96 Oxygen Delivery Room Air Exam Const: General: no acute distress and alert Orientation/consciousness: patient oriented x3 HENMT: Head: normocephalic and atraumatic Ears: hearing grossly normal bilaterally Face/Nose/Sinus: Normal nares present Mouth: Yes Normal oral and palatal mucosa present Eyes: Periorbital: periorbital findings normal Sclera: sclerae normal EOM: EOMs intact bilaterally Neck: Neck: normal visual inspection, no lymphadenopathy and trachea midline Chest: Chest palpation & inspection: normal inspection of the chest Resp: Effort & Inspection: normal respiratory effort Auscultation: clear to auscultation bilaterally Cardio: Jugular venous distension: no JVD Rate: regular rate Rhythm: regular rhythm Heart sounds: S1 normal heart sound present and S2 normal heart sound present Peripheral pulses: Peripheral pulses 2+ throughout GI: Inspection: normal to inspection GI Palp: Yes Soft to palpation, No Tenderness to palpation present (GI), No Guarding due to palpation present (GI), Yes Hernia present umbilical < 3 cm and No Rebound tenderness present Percussion: Yes normal to percussion Auscultation: normal bowel sounds : General: Yes no CVA tenderness Back/Spine/Pelvis: Back: no CVA tenderness Neuro: General: patient oriented x3, no focal motor deficits and CN's II-XI intact bilaterally Cognition (Neuro): normal cognition Speech: normal speech Motor exam (neuro): 5/5 motor strength present throughout Extrem: General: capillary refill normal and no clubbing, cyanosis or edema Assessment and Plan Assessment and plan (1) Umbilical hernia: Qualifiers: Obstruction and gangrene presence: without obstruction or gangrene Qualified Code(s): K42.9 - Umbilical hernia without obstruction or gangrene Code(s): K42.9 - Umbilical hernia without obstruction or gangrene Status: Acute Assessment and Plan: I have recommended laparoscopic umbilical hernia repair with mesh, da Oskar assisted. I have discussed the procedure, risks, benefits, and alternatives with the patient. All questions answered. No changes since last seen in office.
--- NOTE | 2024-01-26 12:31 | WPDANESEPPF ---
Anes - Initial Pre Proc Eval Procedure: Operation Date: 01/26/24 12:00 Proposed Procedures p Laparoscopic Umbilical Hernia Repair with Mesh, Davinci Assisted - Tawanda Busch DO Date/Time: 01/26/24 12:31 Surgeon: Tawanda Busch DO Pre Op Diagnosis: umbilical hernia 2cm Patient Data Age: 43 Gender: M Height: 1.68 m Weight: 96.7 kg Last Vital Signs Temp 98.0 F 01/26/24 10:09 Pulse 72 01/26/24 10:09 Resp 16 01/26/24 10:09 BP 133/69 01/26/24 10:09 Pulse Ox 96 01/26/24 10:09 O2 Del Method Room Air 01/26/24 10:09 Allergies Allergy/AdvReac Type Severity Reaction Status Date / Time lisinopril AdvReac Intermediate Swelling Verified 01/15/24 09:30 of Lip/Tongue/Throat losartan AdvReac Intermediate Swelling Verified 01/15/24 09:30 Home Medications Medication Instructions Recorded Confirmed Type omeprazole 40 mg capsule,delayed 20 mg PO BID 07/12/22 01/26/24 History release ascorbic acid (vitamin C) 1,000 mg 1 g PO DAILY 06/18/23 01/26/24 History tablet carvedilol 12.5 mg tablet 25 mg PO BID 06/18/23 01/26/24 History cholecalciferol (vitamin D3) 50 50 mcg PO DAILY 06/18/23 01/26/24 History mcg (2,000 unit) capsule hydrochlorothiazide 12.5 mg tablet 12.5 mg PO DAILY 06/18/23 01/26/24 History tadalafil 20 mg tablet 20 mg PO DAILY PRN Sexual Activity 06/18/23 01/15/24 History apixaban 5 mg tablet (Eliquis) 5 mg PO Q12HR #60 tabs 07/04/23 01/26/24 Rx omega 4-eir-lqt-fish oil 1,200 mg 1 cap PO DAILY 07/09/23 01/26/24 History (144 mg-216 mg) capsule (Fish Oil) hydroxychloroquine 200 mg tablet 200 mg PO DAILY 08/07/23 01/26/24 History tirzepatide (weight loss) 2.5 2.5 mg (0.5 mL) subcut WEEKLY #2 mL 01/06/24 01/26/24 Rx mg/0.5 mL subcutaneous pen injector (Zepbound) tirzepatide (weight loss) 5 mg/0.5 5 mg (0.5 mL) subcut WEEKLY #2 mL 01/06/24 01/26/24 Rx mL subcutaneous pen injector (Zepbound) Patient hx anesthesia problems: none Family hx anesthesia problems: none Results Review: All pre-operative results and documents have been reviewed as part of the pre-operative evaluation. [facility] Past Medical History Medical History Fracture of thumb, right, closed Generalized anxiety disorder Migraine MTHFR gene mutation Polycythemia Sarcoidosis Vision abnormalities Wrist fracture, left Surgical History Surgical History H/O esophagogastroduodenoscopy History of lung biopsy [place] teeth removed Family History Family History Mother Family history of rheumatoid arthritis Diabetes mellitus Hypertension Father Malignant neoplasm of prostate Hypertension Heart disease Grandparent Cerebrovascular accident Cancer Social History Social History Social History: 11/04/23 declined SDVT Smoking packs per day: 1 Smoking cigarettes per day: 20.0 Years smoked: 21 Smoking pack-years: 21.00 Smoking status: Former smoker Tobacco type: cigarettes Second hand tobacco smoke exposure: No Smoking end date: 06/27/23 Additional smoking assessment comments: down to 1/2 ppd trying to quit Alcohol intake: current Drinks per week: 1 Alcohol use details: 1-2 per week Substance use: never Do You Feel Safe in your Home?: Yes Lack of Transportation: No Lack of Food: Never True Current Housing: Decline to Answer Concerned About Future Housing: Decline to Answer Difficulty Paying Gas/Electric Bills: Decline to Answer Difficulty Paying for Meds: Decline to Answer Currently Unemployed: Decline to Answer Education: High School Diploma/GED Difficulty w/ Childcare or Family Care: No Living arrangements: with family Occupation/Education: occupation 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 ) Neurological: alert and oriented Last oral intake: >/= 8 hours ASA classification: III Emergent: no Anesthetic plan: proceed Anesthesia type and monitoring: general ETT and standard monitoring Results Review: All pre-operative results and documents have been reviewed as part of the pre-operative evaluation. HTN, DAMIÁN but only on oxygen at night (hx of deviated septum), ex smoker, quit 06/2023, hx of PE 06/2023, treated on AC until 01/22/24 and approved to hold by energy conservation representative. Informed Consent: The patient's anesthetic plan and its attendant risks and benefits were discussed with the patient/family/POA. Questions were solicited and answers provided to the satisfaction of the patient/family/POA.
[2024-01-26] MEDS: ceFAZolin 2 GM/D5W 50 ML 2 GM/50 ML BAG IVPB (12:51)
[2024-01-26] MEDS: BUPIVACAINE/EPINEPHRINE 0.5% 50 ML VIAL 30 ML INFILTRATE (13:06)
--- NOTE | 2024-01-26 14:12 | W.PM.PROC2 ---
Procedure Note - Detailed Date of Procedure 01/26/24 Pre-op Diagnosis umbilical hernia 2cm Post-op Diagnosis Same (2 cm umbilical hernia) Procedure Performed Laparoscopic 2 cm umbilical hernia repair with mesh, da Oskar assisted Surgeon Tawanda Busch, Anesthesia General and Local (0.5% bupivacaine with epinephrine) Indications This is a 43-year-old man who presented with a umbilical hernia that was causing him some discomfort. This had been present for about a year. He denies any significant change in size since it was 1st noticed and does have some occasional discomfort with that. Discussions were made with the patient about treatment options and decision was made to proceed with laparoscopic umbilical hernia repair with mesh, da Oskar assisted. Findings Laparoscopic umbilical hernia repair with mesh was performed. The patient was found to have a 2 cm umbilical hernia containing a small amount of preperitoneal fat. He did not have very much surrounding preperitoneal fat, therefore decision was made to perform a robotic intraperitoneal onlay mesh technique. The hernia sac was excised. I then took down the falciform ligament for several cm cephalad. The hernia defect was closed using 0 Stratafix running absorbable suture. I then placed a Ventralight ST 15 cm x 10 cm mesh and secured this circumferentially to the abdominal wall. No specimens were obtained for pathology. Description of Procedure Procedure as well as risks, benefits, and alternatives were discussed with the patient. Written consent was obtained and placed in chart prior to procedure. Patient was brought back to surgical suite. He was placed supine on operating table. Time-out was done to confirm patient and procedure. He was then intubated by the anesthesia department. A bump was placed under his left hip, and the bed was flexed slightly to extend the space between his costal margin and iliac crest. His abdomen was prepped and draped in sterile fashion using chlorhexidine prep. A 5 millimeter incision was made in the left upper quadrant, and a 5 millimeter Optiview trocar was advanced through the abdominal layers under direct visualization. Once inside the abdominal cavity, carbon dioxide insufflation was used to create a pneumoperitoneum. His abdomen was inspected. An 8 millimeter incision was made in the left lower quadrant, and an 8 millimeter robotic trocar was placed under direct visualization. Another 8 millimeter incision was made in the left lateral abdomen, and an 8 millimeter robotic trocar was placed under direct visualization. 0.5% bupivacaine with epinephrine was infiltrated around each port site. The 5 millimeter port was removed, and an 8 mm robotic trocar was placed under direct visualization. The robotic arms were brought up to the patient's bedside and secured to the ports. The camera and instruments were inserted, and I then moved over to the robotic console and took control of the camera and instruments. After careful thorough inspection of the abdominal cavity, I began my dissection at the hernia. The hernia sac was excised using scissors with electrocautery. I then measured the hernia size. The hernia measured 2 cm. The fascia was closed using an 0-Stratafix running suture in a vertical fashion. A Ventralight ST 15 cm by 10 cm mesh was then placed within the abdominal cavity. This was oriented vertically with the mesh centered on the hernia defect. The mesh was then secured at the center and 4 corners using 3-0 Vicryl simple interrupted sutures. The entire perimeter of the mesh was then secured to the abdominal wall using 2-0 Stratafix running absorbable suture. The repair was inspected, and one final inspection was made around the abdominal cavity. The robotic instruments were then removed, and the robotic arms were disengaged from the trocars. The ports were then removed under direct visualization, the camera was removed, and the pneumoperitoneum was released. The skin of the incisions was then approximated using 4-0 Monocryl subcuticular suture. Exofin glue was then applied on top. The patient was then awakened from anesthesia, extubated, and transferred to recovery. Implants Ventralight ST 15 cm x 10 cm mesh Estimated Blood Loss 5 Complications No immediate complications Condition Stable Disposition Same day [facility] Billing Surgery - Charge Forward: Surgery Billing
[2024-01-26] MEDS: fentaNYL CITRATE INJ (*CRX) 100 MCG/2 ML VIAL 25 MCG IV PUSH ×7 (14:40→15:14)
[2024-01-26] MEDS: HYDROmorphone HCL INJ (*CRX) 1 MG/ML SYR 0.25 MG IV PUSH ×7 (15:01→16:02)
[2024-01-26] MEDS: KETOROLAC 15 MG/ML VIAL (*BKC) IV PUSH (15:33)
[2024-01-26] MEDS: diazePAM INJ (*CRX) 10 MG/2 ML SYRINGE 2 MG IV PUSH ×2 (15:50→16:06)
--- NOTE | 2024-01-26 16:32 | SUR.PHASEI ---
1890 DR UMANA HERE TO SEE PT, WILL ADMIT PT FOR PAIN CONTROL
--- NOTE | 2024-01-26 17:41 | PC.NURSE ---
This patient, Amber Green, was admitted to Medical Room 343-01. Patient/family oriented to hospital policies and general routines including ID bracelet, bed and alarms, visiting hours, pain management, procedures, bathroom and other care routines, personal items, smoking policy, room service/diet, and visiting hours. Information on how to activate the Rapid Response Team has been discussed. Patient/Family are encouraged to report perceived risks to care and to ask questions if they do not understand what they are told or what they should do.
[2024-01-26] MEDS: PANTOPRAZOLE 40 MG TABLET PO (18:25)
[2024-01-26] MEDS: LACTATED RINGERS 1,000 ML 100 ML IV CONT (18:26)
[2024-01-26] MEDS: oxyCODONE HCL (*CRX) 5 MG TAB IR 10 MG PO (20:46)
[2024-01-26] MEDS: carvediloL 25 MG TABLET PO (20:46)
[2024-01-26] MEDS: diphenhydrAMINE HCl INJ 50 MG/ML VIAL 25 MG IV PUSH (20:48)
[2024-01-27] MEDS: oxyCODONE HCL (*CRX) 5 MG TAB IR 10 MG PO (02:54)
[2024-01-27] MEDS: ACETAMINOPHEN 500 MG TABLET 1000 MG PO (05:32)
[2024-01-27 06:10] VITALS: BP 133/61; PULSE 68; RESP 18; TEMP 36.2; O2SAT 96
[2024-01-27 08:23] VITALS: PULSE 67
[2024-01-27] MEDS: carvediloL 25 MG TABLET PO (08:23)
[2024-01-27] MEDS: polyethylene glycoL 3350 17 GM POWD.PACK PO (08:23)
[2024-01-27] MEDS: PANTOPRAZOLE 40 MG TABLET PO (08:23)
[2024-01-27] MEDS: hydroCHLOROthiazide 12.5 MG CAPSULE PO (08:23)
[2024-01-27] MEDS: HYDROXYCHLOROQUINE SULFATE 200 MG TABLET PO (08:23)
[2024-01-27] MEDS: oxyCODONE HCL (*CRX) 5 MG TAB IR PO (08:32)
--- NOTE | 2024-01-27 12:07 | P.PNGS_ITS ---
Progress Note: A&P Assessment and Plan (1) Encounter for follow-up examination after completed treatment for conditions other than malignant neoplasm: Code(s): Z09 - Encounter for follow-up examination after completed treatment for conditions other than malignant neoplasm Status: Acute Assessment and Plan: * Pain control improving. Will discharge today. Discussed using oxycodone and ibuprofen for the next couple days. Hopefully won't need ibuprofen too long due to being on Eliquis and bleeding risks. Discharge instructions discussed with patient. Follow up as scheduled in 2 weeks. (2) Other specified postprocedural states: Code(s): Z98.890 - Other specified postprocedural states Status: Acute Subjective Subjective Date/Time Seen: 01/27/24 12:07 Interval history: Pain still present but slightly improved from yesterday. Oxycodone helping. Acetaminophen doesn't help much. Able to ambulate to bathroom. No nausea/vomiting. Exam Resp: Effort & Inspection: normal respiratory effort Auscultation: clear to auscultation bilaterally Cardio: Rate: regular rate Rhythm: regular rhythm Heart sounds: S1 normal heart sound present and S2 normal heart sound present GI: Inspection: non-distended and incision (intact with glue) GI Palp: Yes Soft to palpation and Yes Tenderness to palpation present (GI) (periumbilical) Auscultation: normal bowel sounds Objective Data Vital Signs Vital Signs: Vital Signs - 24 hr 01/26/24 14:23 01/26/24 14:40 01/26/24 15:05 Temperature 97.8 F Pulse Rate 66 68 68 Respiratory Rate 15 16 16 Blood Pressure 137/85 144/81 H 146/66 H Pulse Oximetry 99 99 99 Oxygen Delivery Simple Face Mask Simple Face Mask Nasal Cannula Oxygen Flow Rate 8 8 2 01/26/24 15:20 01/26/24 15:40 01/26/24 15:55 Temperature Pulse Rate 67 72 65 Respiratory Rate 14 14 10 L Blood Pressure 131/86 146/78 H 156/91 H Pulse Oximetry 97 96 97 Oxygen Delivery Nasal Cannula Nasal Cannula Nasal Cannula Oxygen Flow Rate 2 2 2 01/26/24 16:10 01/26/24 16:40 01/26/24 16:55 Temperature Pulse Rate 75 69 63 Respiratory Rate 12 12 12 Blood Pressure 149/90 H 158/82 H 137/65 Pulse Oximetry 98 94 96 Oxygen Delivery Nasal Cannula Nasal Cannula Nasal Cannula Oxygen Flow Rate 2 2 2 01/26/24 17:10 01/26/24 17:26 01/26/24 16:25 Temperature Pulse Rate 67 77 64 Respiratory Rate 12 14 10 L Blood Pressure 135/67 159/72 H 158/88 H Pulse Oximetry 97 100 96 Oxygen Delivery Nasal Cannula Nasal Cannula Nasal Cannula Oxygen Flow Rate 2 2 2 01/26/24 18:08 01/26/24 17:45 01/26/24 18:00 Temperature 97.0 F L 98.0 F Pulse Rate 79 77 Respiratory Rate 18 18 Blood Pressure 137/67 145/74 H Pulse Oximetry 98 97 96 Oxygen Delivery Nasal Cannula Oxygen Flow Rate 2 01/26/24 20:35 01/26/24 20:46 01/26/24 23:12 Temperature 97.8 F Pulse Rate 80 91 Respiratory Rate 16 Blood Pressure 131/83 Pulse Oximetry 98 97 Oxygen Delivery Nasal Cannula Oxygen Flow Rate 2 01/27/24 06:10 01/26/24 22:14 01/27/24 08:23 Temperature 97.1 F L 97.3 F L Pulse Rate 68 80 67 Respiratory Rate 18 18 Blood Pressure 133/61 126/64 Pulse Oximetry 96 97 Oxygen Delivery Oxygen Flow Rate 01/27/24 08:00 Temperature Pulse Rate Respiratory Rate Blood Pressure Pulse Oximetry Oxygen Delivery Room Air Oxygen Flow Rate Intake/Output Intake/Output: Intake & Output 01/24/24 01/25/24 01/26/24 01/27/24 23:59 23:59 23:59 23:59 Intake Total 750 1480 Balance 750 1480 Meds/Results Medications: Active Medications Generic Name Dose Route Start Last Admin Trade Name Freq PRN Reason Stop Dose Admin Acetaminophen 1,000 mg 01/26/24 18:00 01/27/24 05:32 Acetaminophen 500 Mg Tablet PO 1,000 mg Q6HR SHIVANI Administration Carvedilol 25 mg 01/26/24 21:00 01/27/24 08:23 Carvedilol 25 Mg Tablet PO 25 mg Q12HR SHIVANI Administration Diphenhydramine HCl 25 mg 01/26/24 17:27 01/26/24 20:48 Diphenhydramine Hcl Inj 50 Mg/Ml Vial IV PUSH 25 mg Q6H PRN Administration Itching Enoxaparin Sodium 40 mg 01/27/24 09:00 Enoxaparin 40 Mg/0.4 Ml Syringe SUB-Q DAILY SHIVANI Hydrochlorothiazide 12.5 mg 01/27/24 09:00 01/27/24 08:23 Hydrochlorothiazide 12.5 Mg Capsule PO 12.5 mg DAILY SHIVANI Administration Hydromorphone HCl 1 mg 01/26/24 17:27 Hydromorphone Hcl Inj (*Crx) 1 Mg/Ml Syr IV PUSH Q2H PRN Breakthrough Pain Rated 7-10 or NPO Hydromorphone HCl 0.5 mg 01/26/24 17:27 Hydromorphone Hcl Inj (*Crx) 1 Mg/Ml Syr IV PUSH Q2H PRN Breakthrough Pain Rated 4-6 or NPO Hydroxychloroquine Sulfate 200 mg 01/27/24 09:00 01/27/24 08:23 Hydroxychloroquine Sulfate 200 Mg Tablet PO 200 mg DAILY SHIVANI Administration Naloxone HCl 0.1 mg 01/26/24 17:27 Naloxone Hcl 0.4 Mg/Ml Vial IV PUSH Q2M PRN Opiate Reversal Ondansetron HCl 4 mg 01/26/24 17:27 Ondansetron Inj 4 Mg/2 Ml Vial IV PUSH Q4H PRN Nausea And Vomiting Oxycodone HCl 5 mg 01/26/24 17:27 01/27/24 08:32 Oxycodone Hcl (*Crx) 5 Mg Tab Ir PO 5 mg Q4H PRN Administration Pain Rated 4-6 Oxycodone HCl 10 mg 01/26/24 17:27 01/27/24 02:54 Oxycodone Hcl (*Crx) 5 Mg Tab Ir PO 10 mg Q4H PRN Administration Pain Rated 7-10 Pantoprazole Sodium 40 mg 01/26/24 17:35 01/27/24 08:23 Pantoprazole 40 Mg Tablet PO 40 mg BID SHIVANI Administration Polyethylene Glycol 17 gm 01/27/24 09:00 01/27/24 08:23 Polyethylene Glycol 3350 17 Gm Powd.Pack PO 17 gm QAM SHIVANI Administration
[2024-01-27] MEDS: IBUPROFEN 400 MG TABLET 800 MG PO (12:57)
== END 2024-01-27 13:43 | disposition home or self-care (01) ==
LOC: ANHSURGERY 09:56 → ANH3MED 17:32
PROVIDERS: PCP Nurse Practitioner Family; Visit Provider Surgery
PROC: (CPT 49591; principal; 2024-01-26 12:00)
DX: K42.9 Umbilical hernia without obstruction or gangrene (principal); F41.9 Anxiety disorder, unspecified; E72.12 Methylenetetrahydrofolate reductase deficiency; D75.1 Secondary polycythemia; E66.9 Obesity, unspecified; Z68.34 Body mass index [BMI] 34.0-34.9, adult; Z79.01 Long term (current) use of anticoagulants; Z79.85 Long-term (current) use of injectable non-insulin antidiabetic drugs; Z98.890 Other specified postprocedural states; Z87.891 Personal history of nicotine dependence; Z80.42 Family history of malignant neoplasm of prostate; Z82.49 Family history of ischemic heart disease and other diseases of the circulatory system
CPT/HCPCS: 49591; S2900; A9270; C1781; J0690; J1100; J1171; J1200; J1650; J1885; J2003; J2250; J2270; J2405; J2704; J3010; J3360; J7120